=== PATIENT | female | born 1940 | race Caucasian/White ===

== ENCOUNTER → 2016-08-12 | Outpatient (CLI) | payer MEDICARE, BC ==
--- NOTE | 2016-08-12 15:36 | XR ---
EXAMINATION TYPE: XR cervical spine limited DATE OF EXAM: 08/12/2016 2:57 PM COMPARISON: NONE HISTORY: Neck pain TECHNIQUE: Four views are submitted. FINDINGS: The odontoid is intact. There are no compression deformities. The prevertebral soft tissue structur es are within normal limits. Calcification of soft tissues of the neck likely related carotid artery . Severe degenerative disc disease C3-T1 with 2 mm retrolisthesis of C3 on C4. Facet arthropathy. IMPRESSION: 1. Multilevel severe degenerative disc disease with facet arthropathy. Recommend follow-up MRI.
--- NOTE | 2016-08-12 15:42 | XR ---
EXAM TYPE: LUMBAR SPINE X RAY SERIES COMPARISON: NONE HISTORY: Chronic back pain TECHNIQUE: 4 views are submitted. FINDINGS: Alignment is anatomic. The pedicles are intact. The transverse processes are intact. There is grad e 1 anterolisthesis L4 and L5. Severe degenerative disc disease L5-S1 with facet arthropathy. Mild de generative disc disease at remaining levels. Diffuse osteopenia and vascular calcifications noted. IMPRESSION: 1. Multilevel degenerative disc disease and facet arthropathy with grade 1 anterolisthesis L4 on L5.
== END | disposition home or self-care (01) ==
LOC: RADXRMAIN 14:28
PROVIDERS: ATTEND Chiropractor
DX: M50.31 Other cervical disc degeneration, high cervical region (principal); M46.92 Unspecified inflammatory spondylopathy, cervical region; M51.36 Other intervertebral disc degeneration, lumbar region; M46.96 Unspecified inflammatory spondylopathy, lumbar region; M43.16 Spondylolisthesis, lumbar region
CPT/HCPCS: 72040; 72100

== ENCOUNTER 2016-11-19 09:58 | Day surgery (SDC) | payer MEDICARE, BC ==
[2016-11-14 12:59] VITALS: BMI 30.3
[~2016-11-19 09:58] MED LIST: LACTATED RINGERS 1,000 ML IV SCH; LIDOCAINE 1% 20 ML VIAL (10MG/ML) FOR IV START INTRADERMA PRN
[2016-11-19 10:12] VITALS: RESP 16; TEMP 98
[2016-11-19] MEDS ORDERED: LIDOCAINE 1% INJ 10MG/ML (20 ML MDV) ONE (10:29)
[2016-11-19] MEDS ORDERED: PROPOFOL 10 MG/ML 20 ML VIAL IV ONE (10:29)
--- NOTE | 2016-11-19 10:41 | P.GSHP ---
History of Present Illness H&P Date: 11/19/16 Chief Complaint: GERD, diarrhea, colitis This is a 72-year-old female who's had complaints of GERD and diarrhea. Patient has safer EGD and colonoscopy. - Constitutional Constitutional: Reports as per HPI Past Medical History Past Medical History: GERD/Reflux, Hyperlipidemia, Osteoarthritis (OA) Additional Past Medical History / Comment(s): H. Hernia History of Any Multi-Drug Resistant Organisms: None Reported Past Surgical History: Appendectomy, Hysterectomy, Orthopedic Surgery Additional Past Surgical History / Comment(s): cataracts; knee scope Past Anesthesia/Blood Transfusion Reactions: No Reported Reaction Smoking Status: Former smoker Past Alcohol Use History: Rare Additional Past Alcohol Use History / Comment(s): smoked 40 years 1 pkg a day Past Drug Use History: None Reported - Past Family History Father Family Medical History: Cancer Mother Family Medical History: Deep Vein Thrombosis (DVT) Brother(s) Family Medical History: Cancer Son(s) Family Medical History: Deep Vein Thrombosis (DVT) Medications and Allergies Home Medications Medication Instructions Recorded Confirmed Type Aspirin [Adult Low Dose Aspirin EC] 81 mg PO DAILY 11/14/16 11/14/16 History Calcium Carb-Vit D 500Mg-200Un 1 each PO DAILY 11/14/16 11/19/16 History [Oscal 500+D] Meclizine [Antivert] 25 mg PO TID PRN 11/14/16 11/19/16 History Omeprazole 20 mg PO DAILY 11/14/16 11/19/16 History Simvastatin [Zocor] 10 mg PO HS 11/14/16 11/19/16 History Terbinafine [LamISIL] 250 mg PO DAILY 11/14/16 11/19/16 History Torsemide 10 mg PO DAILY 11/14/16 11/19/16 History Vits A,C,E/Lutein/Minerals 1 each PO DAILY 11/14/16 11/19/16 History [Ocuvite with Lutein Tablet] clonazePAM [Clonazepam] 2 mg PO BID PRN 11/14/16 11/14/16 History Allergies Allergy/AdvReac Type Severity Reaction Status Date / Time Penicillins AdvReac Diarrhea Verified 11/19/16 10:01 Surgical - Exam Vital Signs Temp Pulse Resp Pulse Ox 98.0 F 88 16 98 11/19/16 10:11 11/19/16 10:11 11/19/16 10:11 11/19/16 10:11 - General well developed, no distress - Eyes PERRL - ENT normal pinna - Neck no masses - Respiratory normal expansion - Cardiovascular Rhythm: regular - Abdomen Abdomen: soft, non tender Assessment and Plan Plan: GERD, diarrhea. We'll perform EGD and colonoscopy.
[2016-11-19 11:25] VITALS: BP 151/77; PULSE 75
--- NOTE | 2016-11-19 11:37 | P.OP ---
Date of Procedure: 11/19/16 Preoperative Diagnosis: GERD, diarrhea Postoperative Diagnosis: Antral gastritis Mild esophagitis Small hiatal hernia Hepatic flexure polyp pathology pending Procedure(s) Performed: EGD Colonoscopy Implants: Anesthesia: MAC Surgeon: Raj Yoder Pathology: other (Antrum, esophagus, hepatic flexure polyp) Condition: stable Disposition: PACU Indications for Procedure: Operative Findings: Description of Procedure: The patient's placed on the endoscopy table lateral position she received IV sedation. The gastroscope some placed oropharynx passed in the esophagus and into the stomach. The scope was then placed through the pylorus. The first and second portion of the duodenum appeared normal. Scope was then brought back the antrum and this appeared mildly inflamed. A biopsies performed. The scope was unretroflexed and remainder of the stomach appeared normal. There was a small hiatal hernia. The GE junction was at 40 cm. The distal esophagus appeared mildly inflamed. And a biopsies performed. The proximal esophagus appeared normal. The scope was withdrawn for patient. Next digital rectal exam was performed which revealed no abnormalities. Flexible colonoscope was then placed patient anus passed throughout the colon. At the level of the hepatic flexure there was a large wide-based polyp. The polyp wasn't completely removed. It was removed with a forcep and snare. It had a suspicious appearance. The area of the polyp was tattooed with the ink spot. The scope could not be passed beyond the hepatic flexure secondary to tortuous valve. Multiple times were made to pass the scope over this is impossible. Scope was then withdrawn. The remainder transverse colon descending colon appeared normal. There were diverticular changes and sigmoid colon scope was brought back the rectum this appeared normal. Scope was withdrawn for patient.
== END 2016-11-19 12:05 | disposition home or self-care (01) ==
LOC: ORWHC2ENDO 09:58
PROVIDERS: ATTEND Surgery
DX: D12.2 Benign neoplasm of ascending colon (principal); K21.0 Gastro-esophageal reflux disease with esophagitis; K29.50 Unspecified chronic gastritis without bleeding; K44.9 Diaphragmatic hernia without obstruction or gangrene; R19.7 Diarrhea, unspecified; E78.5 Hyperlipidemia, unspecified; M19.90 Unspecified osteoarthritis, unspecified site; Z88.0 Allergy status to penicillin; Z87.891 Personal history of nicotine dependence; Z79.82 Long term (current) use of aspirin; Z79.899 Other long term (current) drug therapy; Q43.8 Other specified congenital malformations of intestine
CPT/HCPCS: 88305; 88342; 45385; 43239; 45381; J2001; J2704; 44404; 45380

== ENCOUNTER 2016-12-30 07:54 | Day surgery (SDC) | payer MEDICARE, BC ==
[2016-12-24 14:07] VITALS: BMI 29.9
[2016-12-30 08:37] VITALS: TEMP 97.6
[2016-12-30] MEDS ORDERED: PROPOFOL 10 MG/ML 20 ML VIAL IV ONE (09:22)
[2016-12-30] MEDS ORDERED: LIDOCAINE 1% INJ 10MG/ML (20 ML MDV) ONE (09:22)
[2016-12-30] MEDS ORDERED: fentaNYL (PF) 50 MCG/ML 2 ML AMP ONE (09:22)
--- NOTE | 2016-12-30 09:34 | P.GSHP ---
History of Present Illness H&P Date: 12/30/16 Chief Complaint: Right colon polyp This is a 76-year-old female who presents today for colonoscopy. Patient history of a incompletely removed right colon polyp. She will stay for colonoscopy to remove the remainder of the polyp. Past Medical History Past Medical History: GERD/Reflux, Hyperlipidemia, Osteoarthritis (OA) Additional Past Medical History / Comment(s): H. Hernia History of Any Multi-Drug Resistant Organisms: None Reported Past Surgical History: Appendectomy, Hysterectomy, Orthopedic Surgery Additional Past Surgical History / Comment(s): BILAT cataracts;RT knee scope, EGD, COLONOSCPY WITH PARTIAL POLYPECTOMY Past Anesthesia/Blood Transfusion Reactions: No Reported Reaction Smoking Status: Former smoker - Past Family History Father Family Medical History: Cancer Mother Family Medical History: Deep Vein Thrombosis (DVT) Brother(s) Family Medical History: Cancer Additional Family Medical History / Comment(s): 3 BROTHERS HAD CANCER Son(s) Family Medical History: Deep Vein Thrombosis (DVT) Medications and Allergies Home Medications Medication Instructions Recorded Confirmed Type Aspirin [Adult Low Dose Aspirin EC] 81 mg PO DAILY 11/14/16 12/30/16 History Calcium Carb-Vit D 500Mg-200Un 1 each PO DAILY 11/14/16 12/30/16 History [Oscal 500+D] Meclizine [Antivert] 25 mg PO TID PRN 11/14/16 12/30/16 History Omeprazole 20 mg PO DAILY 11/14/16 12/30/16 History Simvastatin [Zocor] 10 mg PO HS 11/14/16 12/30/16 History Terbinafine [LamISIL] 250 mg PO DAILY 11/14/16 12/30/16 History Torsemide 10 mg PO DAILY 11/14/16 12/30/16 History Vits A,C,E/Lutein/Minerals 1 each PO DAILY 11/14/16 12/30/16 History [Ocuvite with Lutein Tablet] clonazePAM [Clonazepam] 2 mg PO BID PRN 11/14/16 12/30/16 History Allergies Allergy/AdvReac Type Severity Reaction Status Date / Time Penicillins AdvReac Diarrhea Verified 12/30/16 08:29 Surgical - Exam Vital Signs Temp Pulse BP Pulse Ox 97.6 F 78 151/75 97 12/30/16 08:36 12/30/16 08:36 12/30/16 08:36 12/30/16 08:36 - General well developed, no distress - Eyes PERRL - ENT normal pinna - Neck no masses - Respiratory normal expansion - Cardiovascular Rhythm: regular - Abdomen Abdomen: soft, non tender Assessment and Plan Plan: Colon polyp. We'll perform colonoscopy.
--- NOTE | 2016-12-30 10:03 | P.OP ---
Date of Procedure: 12/30/16 Preoperative Diagnosis: Colon polyp Postoperative Diagnosis: Large colon polyps of right colon Procedure(s) Performed: Colonoscopy Implants: Anesthesia: MAC Surgeon: Raj Yoder Pathology: other (Right colon polyp, hepatic flexure polyp:) Condition: stable Indications for Procedure: Operative Findings: Description of Procedure: The patient's placed on the endoscopy table area and digital rectal exam was performed which revealed no abnormalities. The flexible colonoscope was then placed patient anus passed rotator colon. The ileocecal valve lesions. In the right colon there was a large polyp seen this was impossible to remove with the snare. Several pieces of the polyp removed with a snare and then and then the area was biopsied. The area was tattooed with ink spot. Next at the hepatic flexure there was another large polyp which was incompletely removed with the snare. This area was tattooed as well with the ink spot. The remainder of the transverse colon descending colon appeared normal. The; a few scattered diverticula. Scope was then brought back the rectum and this appeared normal. Scope was withdrawn from patient.
[2016-12-30 10:37] VITALS: BP 172/78; PULSE 67; RESP 20
== END 2016-12-30 10:40 | disposition home or self-care (01) ==
LOC: ORWHC2ENDO 07:54
PROVIDERS: ATTEND Surgery
DX: D12.3 Benign neoplasm of transverse colon (principal); D12.2 Benign neoplasm of ascending colon; K21.9 Gastro-esophageal reflux disease without esophagitis; E78.5 Hyperlipidemia, unspecified; M19.90 Unspecified osteoarthritis, unspecified site; Z87.891 Personal history of nicotine dependence; J44.9 Chronic obstructive pulmonary disease, unspecified; Z79.82 Long term (current) use of aspirin; Z79.899 Other long term (current) drug therapy; Z88.0 Allergy status to penicillin
CPT/HCPCS: 88305; 45380; 45385; 45381; J2001; J3010; J2704; 44404

== ENCOUNTER 2017-01-08 07:41 | Day surgery (SDC) | payer MEDICARE, BC ==
[2017-01-07 12:18] VITALS: BMI 29.9
[~2017-01-08 07:41] MED LIST changes: +DEXAMETHASONE SOD PHOSPHATE 10 MG/ML 1 ML VIAL IV ONE; +HEPARIN SODIUM,PORCINE 5,000 UNIT/ML 1 ML VIAL SQ ONE; +HYDROmorphone 1 MG/ML 1 ML SYRINGE IVP PRN; +MIDAZOLAM 2 MG/2 ML VIAL IV PRN; +ONDANSETRON 4 MG/2 ML VIAL IVP ONE; +SCOPOLAMINE 1.5MG/72HR PATCH TRANSDERM ONE; +ceFAZolin 2 GM in SODIUM CHLORIDE 0.9% 100 ML IVPB ONE
[2017-01-08] MEDS ORDERED: LACTATED RINGERS 1,000 ML IV ONE ×3 (08:19→10:09)
[2017-01-08] MEDS ORDERED: MIDAZOLAM 2 MG/2 ML VIAL ONE (09:05)
[2017-01-08] MEDS ORDERED: fentaNYL (PF) 50 MCG/ML 2 ML AMP ONE (09:05)
[2017-01-08] MEDS ORDERED: PROPOFOL 10 MG/ML 20 ML VIAL IV ONE (09:05)
[2017-01-08] MEDS ORDERED: ePHEDrine 50 MG/ML 1 ML AMP ONE (09:05)
[2017-01-08] MEDS ORDERED: ePHEDrine SULFATE/0.9% NACL/PF 50 MG/5 ML SYRINGE IV ONE (09:05)
[2017-01-08] MEDS ORDERED: NEOSTIGMINE 1 MG/ML 10 ML VIAL ONE (09:05)
[2017-01-08] MEDS ORDERED: LIDOCAINE 1% INJ 10MG/ML (20 ML MDV) ONE (09:05)
[2017-01-08] MEDS ORDERED: SUCCINYLCHOLINE CHLORIDE 100 MG/5 ML SYR IV ONE (09:05)
[2017-01-08] MEDS ORDERED: ROCURONIUM BROMIDE 10 MG/ML 10 ML VIAL IV ONE (09:05)
[2017-01-08] MEDS ORDERED: GLYCOPYRROLATE 0.2 MG/ML 2 ML VIAL ONE (09:05)
[2017-01-08] MEDS ORDERED: BUPIVACAINE (PF) 0.25% 30 ML VIAL SQ ONE (09:39)
[2017-01-08] MEDS ORDERED: ONDANSETRON 4 MG/2 ML VIAL IVP PRN (10:08)
[2017-01-08] MEDS ORDERED: HYDROmorphone 1 MG/ML 1 ML SYRINGE IVP PRN (10:08)
--- NOTE | 2017-01-08 10:13 | P.OP ---
Date of Procedure: 01/08/17 Preoperative Diagnosis: GERD Postoperative Diagnosis: GERD Procedure(s) Performed: Laparoscopic Babak fundoplication Implants: Anesthesia: TIBURCIO Surgeon: Raj Yoder Estimated Blood Loss (ml): 5 Pathology: none sent Condition: stable Disposition: PACU Indications for Procedure: Operative Findings: Description of Procedure: The patient was placed on the operating table in the supine position. The patient received general anesthesia. And was placed in dorsal lithotomy position. The patient was prepped and draped in the usual sterile fashion. The skin incision sites were anesthetized with 1% local Xylocaine. The skin was incised in the left periumbilical area and then using a blade less 5 mm trocar under direct visualization panel cavity was entered. After adequate insufflation the laparoscope was then placed into the peritoneal cavity. Next a 5 mm trochars placed in the right epigastric position. Another 5 millimeter trocar the right lateral position. Another 5 millimeter trocar in the left lateral position a 5 mm trocar is placed in the left epigastric position. And then the initial 5 mm trocar was exchanged for a 10 mm trocar. The left lateral lobe liver was retracted. The hernia was seen. The crural defect was then dissected using the Harmonic scissors device. A 360 crural dissection was performed the esophagus stomach was reduced back into the peritoneal Cavity. The crural defect was then closed using 2-0 Ethibond suture. Next the fundus of the stomach was mobilized using the Mckinnon scissors device. and then a 58-Nepalese bougie dilator was placed oropharynx passed into the esophagus and stomach the fundal plication wrap was then performed by grasping the fundus posteriorly and bringing it around the esophagus and stomach fundoplication was then performed using 2-0 Ethibond suture. Care was taken that the fundal location rested over top of the intra-abdominal esophagus. There was no injury seen to the stomach or esophagus. The dilator was then withdrawn. The abdomen was irrigated there is no bleeding seen. The trochars were then withdrawn and then skin incision sites were closed using 3-0 Monocryl suture Steri-Strips are applied. Patient thought procedure well and sent to recovery room in stable condition.
[2017-01-08] MEDS ORDERED: hydrALAZINE HCL 20 MG/ML 1 ML VIAL IVP ONE (10:33)
[2017-01-08] MEDS: METOCLOPRAMIDE 5 MG/ML 2 ML VIAL IVP SCH ×3 (12:00→23:36)
--- NOTE | 2017-01-08 15:33 | FL ---
EXAMINATION TYPE: FL esophagus cervic/pharynx DATE OF EXAM: 01/08/2017 LAP BANDING LIMITED ESOPHAGRAM: CLINICAL HISTORY: Post Jose Alfredo fundoplication TECHNIQUE: Limited esophagram is performed utilizing 25 mL Omnipaque 350 COMPARISON: None. FINDINGS: Contrast passes through the Jose Alfredo fundoplication with mild hesitancy. No persistent focal stenosis is evident. No free air is evident. No extravasation of contrast is evident. IMPRESSION: 1. Mild hesitancy passing through the level of the Jose Alfredo fundoplication.
[2017-01-08] MEDS: D5-0.45% NACL WITH KCL 20MEQ/L 1,000 ML IV SCH (15:55)
[2017-01-08] MEDS ORDERED: ZOLPIDEM 5 MG TAB PO PRN (20:19)
[2017-01-08] MEDS ORDERED: MECLIZINE 25 MG TAB PO PRN (20:23)
[2017-01-08] MEDS ORDERED: ATORVASTATIN 10 MG TAB PO SCH (21:00)
[2017-01-08] MEDS: CALCIUM CARB-VIT D 500MG-200UN 1 EACH TAB PO SCH (21:28)
[2017-01-08 23:42] VITALS: RESP 18
[2017-01-09] MEDS: D5-0.45% NACL WITH KCL 20MEQ/L 1,000 ML IV SCH ×3 (01:00→11:58)
[2017-01-09] MEDS: METOCLOPRAMIDE 5 MG/ML 2 ML VIAL IVP SCH ×2 (05:59→11:59)
[2017-01-09] MEDS ORDERED: PANTOPRAZOLE 40 MG TABLET PO SCH (07:30)
[2017-01-09] MEDS: CALCIUM CARB-VIT D 500MG-200UN 1 EACH TAB PO SCH ×2 (08:29→11:59)
--- NOTE | 2017-01-09 08:35 | P.CONS ---
History of Present Illness - Reason for Consult Consult date: 01/09/17 Requesting physician: Raj Yoder - Chief Complaint postop care/ Reflux esophagitis. - History of Present Illness This is a medical consult on a 76-year-old white female essentially admitted for reflux esophagitis. She is has an underlying history of hyperlipidemia. Otherwise, no new complaints. She is seen postoperatively doing quite well and tolerating diet. Radiologic scans are pending. Review of Systems ROS unobtainable: due to endotracheal tube All systems: negative Past Medical History Past Medical History: GERD/Reflux, Hyperlipidemia, Osteoarthritis (OA) Additional Past Medical History / Comment(s): HIATAL HERNIA. Colon Polyps History of Any Multi-Drug Resistant Organisms: None Reported Past Surgical History: Appendectomy, Hysterectomy, Orthopedic Surgery Additional Past Surgical History / Comment(s): BILAT cataracts;RT knee scope, EGD, COLONOSCPY WITH PARTIAL POLYPECTOMY. 01/08/2017 Lap Babak Past Anesthesia/Blood Transfusion Reactions: No Reported Reaction, Motion Sickness Past Psychological History: Anxiety Smoking Status: Former smoker Past Alcohol Use History: Rare Additional Past Alcohol Use History / Comment(s): QUIT SMOKING 06/01/08 smoked 40 years 1 pkg a day Past Drug Use History: None Reported - Past Family History Father Family Medical History: Cancer Mother Family Medical History: Deep Vein Thrombosis (DVT) Brother(s) Family Medical History: Cancer Additional Family Medical History / Comment(s): 3 BROTHERS HAD CANCER Son(s) Family Medical History: Deep Vein Thrombosis (DVT) Medications and Allergies Home Medications Medication Instructions Recorded Confirmed Type Aspirin [Adult Low Dose Aspirin EC] 81 mg PO DAILY 11/14/16 01/08/17 History Meclizine [Antivert] 25 mg PO TID PRN 11/14/16 01/08/17 History Omeprazole 20 mg PO DAILY 11/14/16 01/08/17 History Simvastatin [Zocor] 10 mg PO HS 11/14/16 01/08/17 History Torsemide 10 mg PO DAILY 11/14/16 01/08/17 History Vits A,C,E/Lutein/Minerals 1 each PO DAILY 11/14/16 01/08/17 History [Ocuvite with Lutein Tablet] Calcium 600 Plus D 2 tab PO DAILY 01/07/17 01/08/17 History clonazePAM [KlonoPIN] 1 mg PO BID PRN 01/07/17 01/08/17 History Allergies Allergy/AdvReac Type Severity Reaction Status Date / Time Penicillins AdvReac Severe Diarrhea Verified 01/08/17 12:15 terbinafine [From Lamisil] AdvReac Severe Diarrhea Verified 01/08/17 12:15 Physical Exam Vitals: Vital Signs Temp Pulse Pulse Resp BP Pulse Ox 01/08/17 23:00 98.2 F 88 18 135/58 99 01/08/17 22:00 80 01/08/17 20:40 97.3 F L 87 16 137/63 95 01/08/17 16:20 97.1 F L 89 20 147/74 96 01/08/17 14:36 101 H 16 151/71 95 01/08/17 13:38 102 H 163/84 98 01/08/17 13:08 93 159/78 95 01/08/17 12:38 81 16 146/62 95 01/08/17 12:23 90 16 147/63 94 L 01/08/17 12:07 92 16 153/74 97 01/08/17 11:52 97.1 F L 88 16 145/70 96 01/08/17 11:30 83 18 156/65 95 01/08/17 11:17 82 16 150/67 95 01/08/17 11:00 84 16 163/70 95 01/08/17 10:45 85 16 169/74 100 01/08/17 10:30 70 16 192/75 100 01/08/17 10:14 97.6 F 76 16 194/86 99 Intake and Output 01/08/17 01/09/17 01/09/17 22:59 06:59 14:59 Intake Total 500 Output Total 400 Balance -400 500 Intake: Oral 500 Output: Urine 400 Other: Voiding Method Toilet Bedside Commode # Voids 1 - Constitutional General appearance: no acute distress - EENT Eyes: EOMI - Neck Neck: no lymphadenopathy - Respiratory Respiratory: bilateral: diminished - Cardiovascular Rhythm: irregularly irregular Heart sounds: normal: S1, S2 - Gastrointestinal General gastrointestinal: soft, no tenderness - Psychiatric Psychiatric: no A&O x's 3 Results CBC & Chem 7: 01/08/17 08:15 Assessment and Plan (1) Reflux esophagitis Status: Acute (2) Hyperlipidemia Status: Acute Plan: Continue to follow with grease buffer. Check CBC, CMP with postop chest x-ray. Prognosis is guarded secondary term maria r postop course. We'll continue to follow. Dr. Washington's group will be covering for the weekend. Time with Patient: Less than 30
[2017-01-09] MEDS ORDERED: TORSEMIDE 20 MG TAB PO SCH (09:00)
[2017-01-09] MEDS ORDERED: ENOXAPARIN 40 MG/0.4 ML SYRINGE SQ SCH (09:00)
[2017-01-09 12:04] VITALS: BP 145/77; PULSE 71; TEMP 96.9
--- NOTE | 2017-01-09 14:32 | P.DS ---
Providers Date of admission: 01/08/2017 Expected date of discharge: 01/09/17 Attending physician: Raj Yoder Consults: 01/08/17 10:13 Consult Physician Routine Consulting Provider: Kareem Cunningham Consult Reason/Comments: Medical management Do you want consulting provider notified?: Yes Primary care physician: Kareem Cunningham [facility] Course: Assessment a 6-year-old female who underwent laparoscopic Babak fundoplication yesterday. Patient is doing quite well. She has no complaints of pain. Previously on the chart for details. Procedures: Laparoscopic Babak fundoplication Patient Condition at Discharge: Good Plan - Discharge Summary New Discharge Prescriptions: New Docusate [Colace] 100 mg PO BID #20 capsule HYDROcodone/APAP 7.5-325MG [[place] 7.5] 1 each PO Q4H PRN #60 tab PRN Reason: Pain No Action Vits A,C,E/Lutein/Minerals [Ocuvite with Lutein Tablet] 1 each PO DAILY Torsemide 10 mg PO DAILY Omeprazole 20 mg PO DAILY Simvastatin [Zocor] 10 mg PO HS Meclizine [Antivert] 25 mg PO TID PRN PRN Reason: Vertigo Aspirin [Adult Low Dose Aspirin EC] 81 mg PO DAILY clonazePAM [KlonoPIN] 1 mg PO BID PRN PRN Reason: Anxiety Calcium 600 Plus D 2 tab PO DAILY Discharge Medication List Aspirin [Adult Low Dose Aspirin EC] 81 mg PO DAILY 11/14/16 [History] Meclizine [Antivert] 25 mg PO TID PRN 11/14/16 [History] Omeprazole 20 mg PO DAILY 11/14/16 [History] Simvastatin [Zocor] 10 mg PO HS 11/14/16 [History] Torsemide 10 mg PO DAILY 11/14/16 [History] Vits A,C,E/Lutein/Minerals [Ocuvite with Lutein Tablet] 1 each PO DAILY [History] Calcium 600 Plus D 2 tab PO DAILY 01/07/17 [History] clonazePAM [KlonoPIN] 1 mg PO BID PRN 01/07/17 [History] Docusate [Colace] 100 mg PO BID #20 capsule 01/09/17 [Rx] HYDROcodone/APAP 7.5-325MG [[place] 7.5] 1 each PO Q4H PRN #60 tab 01/09/17 [Rx] Follow up Appointment(s)/Referral(s): Raj Yoder MD [STAFF PHYSICIAN] - 01/22/17 2:00 pm Patient Instructions/Handouts: *[facility] - ([facility]) Lap Babak Fundiplication Post-Op Instructions, *[facility] - Scopalamine Patch Instructions, Adult Laparoscopic Babak Fundoplication (DC)
== END 2017-01-09 14:45 | disposition home or self-care (01) ==
LOC: OR 07:41 → 6PED 10:14 → OR 01-09 14:45
PROVIDERS: ATTEND Surgery
DX: K21.0 Gastro-esophageal reflux disease with esophagitis (principal); K44.9 Diaphragmatic hernia without obstruction or gangrene; K63.5 Polyp of colon; E78.5 Hyperlipidemia, unspecified; M19.90 Unspecified osteoarthritis, unspecified site; F41.9 Anxiety disorder, unspecified; Z79.82 Long term (current) use of aspirin; Z79.899 Other long term (current) drug therapy; Z87.891 Personal history of nicotine dependence
CPT/HCPCS: 93005; 84132; 74210; 43280; J2250; J0360; J1644; J1100; J2710; J2765 ×2; Q9967; J0690; J2405; J2001; J1650; J3010; J0330; J2704

== ENCOUNTER → 2017-01-20 | Outpatient (CLI) | payer MEDICARE, BC ==
[2017-01-20 15:42] LABS: Basophils # (A) 0.1 k/uL (0-0.2); Basophils % (A) 1 %; CH 30.6; CHCM 33.7; Eosinophils # (A) 0.1 k/uL (0-0.7); Eosinophils % (A) 2 %; HCT 43.1 % (34.0-46.0); HDW 2.58; HGB 13.9 gm/dL (11.4-16.0); Luc # (Auto) 0.11; Luc % (Auto) 2; Lymphocytes # (A) 2.2 k/uL (1.0-4.8); Lymphocytes % (A) 34 %; MCH 29.5 pg (25.0-35.0); MCHC 32.3 g/dL (31.0-37.0); MCV 91.4 fL (80.0-100.0); Mean Platelet Volume 7.2; Monocytes # (A) 0.3 k/uL (0-1.0); Monocytes % (A) 4 %; Neutrophils # (A) 3.8 k/uL (1.3-7.7); Neutrophils % (A) 58 %; RBC 4.72 m/uL (3.80-5.40); RDW 14.6 % (11.5-15.5); WBC 6.6 k/uL (3.8-10.6)
[2017-01-20 16:03] LABS: Potassium 4.2 mmol/L (3.5-5.1)
== END | disposition home or self-care (01) ==
LOC: LABPAT 15:03
PROVIDERS: ATTEND Anesthesiology
DX: Z01.812 Encounter for preprocedural laboratory examination (principal); Z79.01 Long term (current) use of anticoagulants
CPT/HCPCS: 36415; 80051; 85025

== ENCOUNTER 2017-01-22 07:45 | Inpatient (IN) | payer MEDICARE, BC ==
[2017-01-13 11:26] VITALS: BMI 29.4
[~2017-01-22 07:45] MED LIST changes: -HYDROmorphone 1 MG/ML 1 ML SYRINGE IVP PRN; -LIDOCAINE 1% 20 ML VIAL (10MG/ML) FOR IV START INTRADERMA PRN; -SCOPOLAMINE 1.5MG/72HR PATCH TRANSDERM ONE; +metroNIDAZOLE-NS PMX 500 MG in SALINE 1 100ML.BAG IVPB ONE
[2017-01-22] MEDS ORDERED: LACTATED RINGERS 1,000 ML IV ONE (10:09)
[2017-01-22] MEDS ORDERED: SCOPOLAMINE 1.5MG/72HR PATCH TRANSDERM ONE (10:16)
[2017-01-22] MEDS ORDERED: LIDOCAINE 1% 20 ML VIAL (10MG/ML) FOR IV START INTRADERMA ONE (10:16)
--- NOTE | 2017-01-22 10:19 | P.GSHP ---
History of Present Illness H&P Date: 01/22/17 Chief Complaint: Colon polyps This is a 36-year-old female referred from Dr. Cunningham. Patient presents today for laparoscopic right colectomy. She's had several large right colon polyps which are impossible to remove via the colonoscope due to the large size. She presents today for laparoscopic right colectomy. She understands the risks and benefits of procedure. Past Medical History Past Medical History: Eye Disorder, GERD/Reflux, Hyperlipidemia, Osteoarthritis (OA) Additional Past Medical History / Comment(s): macular degeneration, heartburn gone since sameer fundoplasty History of Any Multi-Drug Resistant Organisms: None Reported Past Surgical History: Appendectomy, Hysterectomy, Orthopedic Surgery Additional Past Surgical History / Comment(s): cataracts; knee arthroscopy, sameer fundoplasty 01-08-17 Past Anesthesia/Blood Transfusion Reactions: No Reported Reaction Smoking Status: Former smoker - Past Family History Father Family Medical History: Cancer Mother Family Medical History: Deep Vein Thrombosis (DVT) Brother(s) Family Medical History: Cancer Additional Family Medical History / Comment(s): 3 BROTHERS HAD CANCER Son(s) Family Medical History: Deep Vein Thrombosis (DVT) Medications and Allergies Home Medications Medication Instructions Recorded Confirmed Type Aspirin [Adult Low Dose Aspirin EC] 81 mg PO DAILY 11/14/16 01/21/17 History Meclizine [Antivert] 25 mg PO TID PRN 11/14/16 01/13/17 History Simvastatin [Zocor] 10 mg PO HS 11/14/16 01/13/17 History Torsemide 10 mg PO DAILY 11/14/16 01/13/17 History Vits A,C,E/Lutein/Minerals 1 each PO DAILY 11/14/16 01/21/17 History [Ocuvite with Lutein Tablet] clonazePAM [KlonoPIN] 1 mg PO BID PRN 01/07/17 01/13/17 History Calcium Carbonate/Vitamin D3 1 each PO DAILY 01/13/17 01/22/17 History [Calcium 600-Vit D3 400 Tablet] Allergies Allergy/AdvReac Type Severity Reaction Status Date / Time Penicillins AdvReac Severe Diarrhea Verified 01/13/17 08:17 terbinafine [From Lamisil] AdvReac Severe Diarrhea Verified 01/13/17 08:17 Surgical - Exam Vital Signs Temp Pulse Resp BP Pulse Ox 97.7 F 86 18 143/83 97 01/22/17 09:53 01/22/17 09:53 01/22/17 09:53 01/22/17 09:53 01/22/17 09:53 Assessment and Plan Plan: Large right colon polyps. We'll perform laparoscopic right colectomy.
[2017-01-22] MEDS ORDERED: BUPIVACAINE (PF) 0.25% 30 ML VIAL SQ ONE (11:18)
[2017-01-22] MEDS ORDERED: LIDOCAINE 2%-EPI 1:100,000 20 ML VIAL SQ ONE (11:18)
[2017-01-22] MEDS ORDERED: METOCLOPRAMIDE 5 MG/ML 2 ML VIAL IVP PRN (11:57)
[2017-01-22] MEDS ORDERED: HYDROmorphone 1 MG/ML 1 ML SYRINGE IVP PRN (11:57)
[2017-01-22] MEDS ORDERED: ONDANSETRON 4 MG/2 ML VIAL IVP PRN (11:57)
[2017-01-22] MEDS ORDERED: BENZOCAINE/MENTHOL LOZENG 1 EACH LOZENGE MUCOUS MEM PRN (11:57)
--- NOTE | 2017-01-22 12:03 | P.OP ---
Date of Procedure: 01/22/17 Preoperative Diagnosis: Right colon polyps Postoperative Diagnosis: Right colon polyps Procedure(s) Performed: Laparoscopic right colectomy Implants: Anesthesia: TIBURCIO Surgeon: Raj Yoder Estimated Blood Loss (ml): 10 Pathology: other (Right colon) Condition: stable Disposition: PACU Indications for Procedure: Operative Findings: Description of Procedure: Patient's placed on the operating table in the supine position. She received IV sedation and general anesthesia. Her abdomen was prepped and draped usual fashion. The skin incision sites were anesthetized 1% local Xylocaine. Using 11 blade the skin was incised at the umbilicus and then using a pair of Katie's the fascia was grasped and then the Veress needles placed into the pleural cavity. Position of the Veress needle was confirmed with a positive drop test. The abdomen was insufflated and then after adequate insufflation a 5 mm trochars placed in into the peritoneal cavity. Next a 5 mm trochars placed the suprapubic position. And then a another fibrillar trocar is placed in the epigastric position. The right colon was visualized. There were 2 tattoo velasquez seen one in the cecum and one near the hepatic flexure. Using Harmonic scissors the right colon and terminal ileum were mobilized. After adequate mobilization the trochars withdrawn. The umbilical incision was lengthened and then the terminal ileum was brought up into the incision site. The terminal ileum was transected with a GI stapler. And then the transverse colon was brought up into the staple site and transected with a GI stapler. Using the laser device the mesentery the bowel was divided. And then a [id number] functional end-to-end staple anastomosis created using the YOLANDA and TA stapler. A 3-0 GI silk was used as a crotch stitch. There is no bleeding seen. The abdomen was irrigated there is no bleeding seen. The fascia was closed with looped #1 PDS suture. The skin was closed with interrupted 3-0 Monocryl suture. Dermabond was applied. Patient top she will was sent to recovery in stable condition.
[2017-01-22] MEDS ORDERED: ENALAPRILAT 1.25 MG/ML 1 ML VIAL IVP ONE (12:15)
[2017-01-22] MEDS: HYDROmorphone 1 MG/ML 1 ML SYRINGE IVP PRN ×2 (12:25→12:35)
[2017-01-22] MEDS: KETOROLAC 30 MG/ML 1 ML VIAL IVP PRN (12:40)
[2017-01-22] MEDS: D5-0.45% NACL WITH KCL 20MEQ/L 1,000 ML IV SCH ×2 (13:14→22:05)
[2017-01-22 13:41] LABS: Basophils % (A) 0 %; CH 30.7; CHCM 33.1; Eosinophils % (A) 0 %; HCT 44.2 % (34.0-46.0); HDW 2.56; Luc # (Auto) 0.04; Luc % (Auto) 0; Lymphocytes # (A) 0.6 k/uL (1.0-4.8); Lymphocytes % (A) 7 %; MCH 29.5 pg (25.0-35.0); MCHC 31.6 g/dL (31.0-37.0); MCV 93.3 fL (80.0-100.0); Mean Platelet Volume 7.6; Monocytes # (A) 0.1 k/uL (0-1.0); Monocytes % (A) 1 %; Neutrophils # (A) 7.3 k/uL (1.3-7.7); Neutrophils % (A) 91 %; RBC 4.74 m/uL (3.80-5.40); RDW 14.4 % (11.5-15.5); WBC 8.1 k/uL (3.8-10.6); WBC (Perox) 8.18
[2017-01-22 13:49] LABS: Anion Gap 14 mmol/L; Blood Urea Nitrogen 15 mg/dL (7-17); Calcium 9.5 mg/dL (8.4-10.2); Carbon Dioxide 25 mmol/L (22-30); Chloride 101 mmol/L (98-107); Glucose 133 mg/dL (74-99); Non-African American GFR(MDRD) 51 (>60 ml/min/1.73 sqM); Potassium 3.6 mmol/L (3.5-5.1); Sodium 140 mmol/L (137-145)
[2017-01-22] MEDS ORDERED: ALVIMOPAN 12 MG CAPSULE PO SCH (21:00)
[2017-01-23] MEDS: FAMOTIDINE 20 MG/2 ML VIAL IV SCH ×2 (04:20→07:43)
[2017-01-23] MEDS: D5-0.45% NACL WITH KCL 20MEQ/L 1,000 ML IV SCH ×2 (05:57→19:57)
[2017-01-23] MEDS: ALVIMOPAN 12 MG CAPSULE PO SCH ×2 (07:43→20:00)
[2017-01-23] MEDS ORDERED: clonazePAM 1 MG TAB PO PRN (08:49)
[2017-01-23] MEDS ORDERED: MECLIZINE 25 MG TAB PO PRN (08:49)
--- NOTE | 2017-01-23 08:52 | P.CONS ---
History of Present Illness - Reason for Consult Consult date: 01/23/17 - Chief Complaint Abdominal pain. - History of Present Illness This is a 76-year-old white female who is fairly well-known to my practice who has an underlying history of colon polyps with abdominal pain and hemorrhoids. She is scheduled for partial colectomy and is postop day #1 doing quite well. We will reconcile home medications. She states minimal pain and she seems to tolerate clear liquid diet at this time. No fever or chills are stated. She is a nonsmoker. Review of Systems Constitutional: Denies chills, Denies fever Eyes: denies blurred vision, denies pain Ears, nose, mouth and throat: Denies headache, Denies sore throat Respiratory: Denies cough Gastrointestinal: Reports as per HPI Past Medical History Past Medical History: Eye Disorder, GERD/Reflux, Hyperlipidemia, Osteoarthritis (OA) Additional Past Medical History / Comment(s): macular degeneration, heartburn gone since sameer fundoplasty History of Any Multi-Drug Resistant Organisms: None Reported Past Surgical History: Appendectomy, Hysterectomy, Orthopedic Surgery Additional Past Surgical History / Comment(s): cataracts; knee arthroscopy, sameer fundoplasty 01-08-17 Past Anesthesia/Blood Transfusion Reactions: No Reported Reaction Past Psychological History: Anxiety Smoking Status: Former smoker Past Alcohol Use History: Rare Additional Past Alcohol Use History / Comment(s): quit smoking 2007, smoked 40 years 1 pkg a day Past Drug Use History: None Reported - Past Family History Father Family Medical History: Cancer Mother Family Medical History: Deep Vein Thrombosis (DVT) Brother(s) Family Medical History: Cancer Additional Family Medical History / Comment(s): 3 BROTHERS HAD CANCER Son(s) Family Medical History: Deep Vein Thrombosis (DVT) Medications and Allergies Home Medications Medication Instructions Recorded Confirmed Type Aspirin [Adult Low Dose Aspirin EC] 81 mg PO DAILY 11/14/16 01/22/17 History Meclizine [Antivert] 25 mg PO TID PRN 11/14/16 01/22/17 History Simvastatin [Zocor] 10 mg PO HS 11/14/16 01/22/17 History Torsemide 10 mg PO DAILY 11/14/16 01/22/17 History Vits A,C,E/Lutein/Minerals 1 tab PO DAILY 11/14/16 01/22/17 History [Ocuvite with Lutein Tablet] clonazePAM [KlonoPIN] 1 mg PO BID PRN 01/07/17 01/22/17 History Calcium Carbonate/Vitamin D3 1 tab PO DAILY 01/13/17 01/22/17 History [Calcium 600-Vit D3 400 Tablet] Allergies Allergy/AdvReac Type Severity Reaction Status Date / Time Penicillins AdvReac Severe Diarrhea Verified 01/22/17 12:15 terbinafine [From Lamisil] AdvReac Severe Diarrhea Verified 01/22/17 12:15 Physical Exam Vitals: Vital Signs Temp Pulse Pulse Resp BP BP Pulse Ox 01/23/17 08:42 95 01/23/17 07:38 97.5 F L 74 18 140/63 95 01/23/17 04:08 97.9 F 71 16 120/59 96 01/22/17 19:00 97.3 F L 73 16 123/57 96 01/22/17 15:15 67 98/48 01/22/17 15:00 71 107/51 01/22/17 14:45 80 99/45 01/22/17 14:30 84 112/60 01/22/17 14:15 80 105/57 01/22/17 14:00 91 112/51 01/22/17 13:45 89 105/54 01/22/17 13:30 85 115/50 01/22/17 13:15 97 F L 84 16 126/47 97 01/22/17 12:50 75 16 143/65 100 01/22/17 12:35 71 16 146/66 99 01/22/17 12:20 69 16 158/89 3 L 01/22/17 12:06 97.6 F 73 20 192/81 94 L 01/22/17 09:53 97.7 F 86 18 143/83 97 Intake and Output 01/22/17 01/23/17 01/23/17 22:59 06:59 14:59 Intake Total 1540 1250 Output Total 1100 300 Balance 440 950 Intake: Intake, IV Titration 1000 1250 Amount D5-0.45% NaCl with KCl 1000 1250 20Meq/l 1,000 ml @ 125 mls/hr IV .Q8H APRYL Rx#: [id number] Oral 540 Output: Urine 1100 300 Other: Voiding Method Toilet # Voids 2 1 - Constitutional General appearance: no acute distress - EENT Eyes: EOMI - Respiratory Respiratory: bilateral: CTA - Cardiovascular Rhythm: regular Heart sounds: normal: S1, S2 - Gastrointestinal General gastrointestinal: absent bowel sounds, soft - Psychiatric Psychiatric: A&O x's 3, appropriate affect, intact judgment & insight Results CBC & Chem 7: 01/22/17 13:11 01/22/17 13:11 Labs: Abnormal Lab Results - Last 24 Hours (Table) 01/22/17 01/22/17 Range/Units 13:11 13:11 Lymphocytes # 0.6 L (1.0-4.8) k/uL Creatinine 1.05 H (0.52-1.04) mg/dL Glucose 133 H (74-99) mg/dL Assessment and Plan (1) Colon polyps Status: Acute (2) Hyperlipidemia Status: Acute (3) Reflux esophagitis Status: Acute Plan: Reconcile home medications. Check CBC and CMP in a.m. Dr. Washington's group will be covering for the weekend. Time with Patient: Less than 30
[2017-01-23] MEDS: TORSEMIDE 20 MG TAB PO SCH (09:53)
[2017-01-23] MEDS: VIT A,C & E-LUTEIN-MINERALS 1 EACH TAB PO SCH (09:53)
--- NOTE | 2017-01-23 14:02 | P.PN ---
Subjective 76-year-old female being seen on rounds this afternoon up ambulating in the room. Patient states that she did walk in the hallway this morning. Patient states had a bowel movement is passing gas rectally. Patient states no nausea no vomiting and the pain medication is effective for pain control. Patient additionally states did have a bowel movement. Patient reports no nausea vomiting. Patient is postop on January 22 laparoscopic right cholectomy for right colon polyp Objective - Vital Signs Vital signs: Vital Signs Temp 97.5 F L 01/23/17 07:38 Pulse 74 01/23/17 08:00 Resp 18 01/23/17 08:00 BP 140/63 01/23/17 07:38 Pulse Ox 95 01/23/17 08:42 Intake & Output 01/22/17 01/23/17 01/23/17 18:59 06:59 18:59 Intake Total 950 2790 Output Total 10 1400 Balance 940 1390 Intake: IV 950 Intake, IV Titration 2250 Amount D5-0.45% NaCl with KCl 2250 20Meq/l 1,000 ml @ 125 mls/hr IV .Q8H APRYL Rx#: [id number] Oral 540 Output: Urine 1400 Estimated Blood Loss 10 Other: Voiding Method Toilet Toilet # Voids 1 2 - Exam Physical exam Pleasant 76-year-old female standing up in the room talkative pleasant states pain medication effective for pain control tolerating a diet Lungs essentially clear adequate air movement currently on room air Heart S1-S2 audible and regular denying chest pain Abnormal surgical sites no redness dry soft and not distended slight surgical tenderness bowel tones present no nausea no vomitin Extremities no edema noted. - Labs CBC & Chem 7: 01/22/17 13:11 01/22/17 13:11 Labs: Abnormal Lab Results - Last 24 Hours (Table) 01/22/17 01/22/17 Range/Units 13:11 13:11 Lymphocytes # 0.6 L (1.0-4.8) k/uL Creatinine 1.05 H (0.52-1.04) mg/dL Glucose 133 H (74-99) mg/dL Assessment and Plan Plan: Impression History of right colon polyp status post laparoscopic right colectomy on January 22 History of esophageal reflux Reflex esophagitis acute Hyperlipidemia Plan Continue postop surgical care Pain control Advance diet to soft DVT and GI prophylaxis Resume home meds as appropriate The above impression and plan of care have been discussed and directed by signing physician. Denisse Forrest nurse practitioner acting as scribe for signing physician.
[2017-01-23] MEDS: ATORVASTATIN 10 MG TAB PO SCH (20:00)
[2017-01-24] MEDS: D5-0.45% NACL WITH KCL 20MEQ/L 1,000 ML IV SCH (03:04)
[2017-01-24] MEDS: KETOROLAC 30 MG/ML 1 ML VIAL IVP PRN (03:23)
[2017-01-24] MEDS: ALVIMOPAN 12 MG CAPSULE PO SCH ×2 (07:48→23:01)
[2017-01-24] MEDS: VIT A,C & E-LUTEIN-MINERALS 1 EACH TAB PO SCH (07:48)
[2017-01-24] MEDS: FAMOTIDINE 20 MG TAB PO SCH (07:49)
[2017-01-24] MEDS: TORSEMIDE 20 MG TAB PO SCH (07:49)
[2017-01-24 07:59] LABS: CH 30.7; HCT 39.7 % (34.0-46.0); HDW 2.59; HGB 12.6 gm/dL (11.4-16.0); MCH 29.8 pg (25.0-35.0); MCHC 31.8 g/dL (31.0-37.0); MCV 93.8 fL (80.0-100.0); Mean Platelet Volume 7.6; RBC 4.23 m/uL (3.80-5.40); RDW 14.8 % (11.5-15.5); WBC 9.1 k/uL (3.8-10.6)
[2017-01-24 08:27] LABS: ALT 26 U/L (9-52); AST 22 U/L (14-36); Alkaline Phosphatase 97 U/L (38-126); Anion Gap 11 mmol/L; Blood Urea Nitrogen 10 mg/dL (7-17); Calcium 9.5 mg/dL (8.4-10.2); Carbon Dioxide 26 mmol/L (22-30); Chloride 104 mmol/L (98-107); Glucose 84 mg/dL (74-99); Non-African American GFR(MDRD) 59 (>60 ml/min/1.73 sqM); Potassium 4.1 mmol/L (3.5-5.1); Sodium 141 mmol/L (137-145); Total Bilirubin 0.3 mg/dL (0.2-1.3); Total Protein 6.2 g/dL (6.3-8.2)
--- NOTE | 2017-01-24 11:52 | P.PN ---
Progress Note - Text The patient is day 2 post the right colectomy by Dr. Yoder. She is tolerating a soft diet. Had some bowel movements yesterday. No nausea or vomiting. On examination she is afebrile. Vitals are stable. She is cheerful and in no distress. The abdomen is soft with usual postoperative tenderness. Incision looks fine. Impression. Slowly improving postoperative course status post right colectomy. Recommendation. IV to saline lock..PO Pain meds. Hopefully discharged the next day or 2.
[2017-01-24] MEDS: ACETAMINOPHEN TAB 325 MG TAB PO PRN (16:53)
[2017-01-24] MEDS: ATORVASTATIN 10 MG TAB PO SCH (23:01)
[2017-01-25] MEDS: ACETAMINOPHEN TAB 325 MG TAB PO PRN ×3 (01:45→20:40)
[2017-01-25] MEDS: TORSEMIDE 20 MG TAB PO SCH (08:53)
[2017-01-25] MEDS: ALVIMOPAN 12 MG CAPSULE PO SCH ×2 (08:53→20:40)
[2017-01-25] MEDS: VIT A,C & E-LUTEIN-MINERALS 1 EACH TAB PO SCH (08:53)
[2017-01-25] MEDS: FAMOTIDINE 20 MG TAB PO SCH (08:54)
--- NOTE | 2017-01-25 12:49 | P.PN ---
Progress Note - Text The patient continues to improve. She is tolerating a soft diet. Is having multiple loose bowel movement which is not too unexpected and she is reassured. On examination she is afebrile. Vitals are stable. She is in no distress. Abdomen is soft with mild postoperative tenderness. No evidence of any complication. Allograft impression slowly improving postoperative course status post right colectomy. Recommendation. IV to saline lock. Monitor her diarrhea. Probably discharge in the next day or 2.
[2017-01-25 14:24] VITALS: RESP 16
[2017-01-25] MEDS: ATORVASTATIN 10 MG TAB PO SCH (20:40)
--- NOTE | 2017-01-26 00:48 | P.PN ---
Subjective Principal diagnosis: Patient is postop on January 22 laparoscopic right cholectomy for right colon polyp This is a 76-year-old white female who is fairly well-known to my practice who has an underlying history of colon polyps with abdominal pain and hemorrhoids. She is scheduled for partial colectomy and is postop day #1 doing quite well. We will reconcile home medications. She states minimal pain and she seems to tolerate clear liquid diet at this time. No fever or chills are stated. She is a nonsmoker. 01/25/2017 Patient is coming or diarrhea which is not unrestricted to to colon surgery. No fever no chills. No nausea vomiting abdominal pain. Otherwise no acute overnight issues. Objective - Vital Signs Vital signs: Vital Signs Temp 98.4 F 01/25/17 14:23 Pulse 87 01/25/17 16:00 Resp 16 01/25/17 16:00 BP 164/72 01/25/17 14:23 Pulse Ox 97 01/25/17 14:23 Intake & Output 01/25/17 01/25/17 01/26/17 06:59 18:59 06:59 Intake Total 550 1110 Output Total 800 808 Balance -250 302 Weight 80.286 kg Intake: Oral 550 1110 Output: Urine 800 800 Stool 8 Other: Voiding Method Toilet Toilet # Voids 4 # Bowel Movements 3 - Exam PHYSICAL EXAMINATION: Patient is lying in the bed comfortably, no acute distress, awake alert and oriented.. HEENT: Normocephalic. Neck is supple. Pupils reactive. Nostrils clear. Oral cavity is moist. Ears reveal no drainage. Neck reveals no JVD, carotid bruits, or thyromegaly. CHEST EXAMINATION: Trachea is central. Symmetrical expansion. Lung [place] clear to auscultation and percussion. CARDIAC: Normal S1, S2 with no gallops. No murmurs ABDOMEN: Soft. Bowel sounds normal. No organomegaly. No abdominal bruits. Extremities reveal no edema. No clubbing or cyanosis Neurologically awake, alert, oriented x3 with well-coordinated movements. Skin: no rash or skin lesions Musculoskeletal: no joint swelling or deformity. - Labs CBC & Chem 7: 01/24/17 07:16 01/24/17 07:16 Assessment and Plan Plan: Patient is postop on January 22 laparoscopic right cholectomy for right colon polyp Diarrhea Hyperlipidemia GERD Osteo-arthritis Patient will be continued on IV hydration and replace electrolyte. Patient is still having diarrhea which is expected after colectomy. We can do the current management and further recommendations based on the clinical course.
[2017-01-26] MEDS: D5-0.45% NACL WITH KCL 20MEQ/L 1,000 ML IV SCH (07:24)
--- NOTE | 2017-01-26 08:50 | P.PN ---
Subjective Principal diagnosis: Continuing care This is a 76-year-old white female essentially admitted for significant colectomy related to history of severe colon polyps. The patient is doing quite well postop day #4. Tolerating diet with intermittent diarrhea stated. Pain seems to be fairly well-controlled. Objective - Vital Signs Vital signs: Vital Signs Temp 97.1 F L 01/26/17 07:27 Pulse 75 01/26/17 07:27 Resp 16 01/26/17 02:35 BP 135/65 01/26/17 07:27 Pulse Ox 95 01/26/17 07:27 Intake & Output 01/25/17 01/26/17 01/26/17 18:59 06:59 18:59 Intake Total 1110 1510 Output Total 808 1800 Balance 302 -290 Weight 80.286 kg Intake: Oral 1110 1510 Output: Urine 800 1800 Stool 8 Other: Voiding Method Toilet Toilet # Voids 4 # Bowel Movements 3 - Constitutional General appearance: Present: average body habitus - EENT Eyes: Absent: abnormal pupil - Respiratory Respiratory: bilateral: CTA - Cardiovascular Rhythm: regular Heart sounds: normal: S1, S2 - Gastrointestinal General gastrointestinal: Present: soft - Neurologic Neurologic: Present: CNII-XII intact - Labs CBC & Chem 7: 01/24/17 07:16 01/24/17 07:16 Assessment and Plan (1) Colon polyps Status: Acute (2) Hyperlipidemia Status: Acute (3) Reflux esophagitis Status: Acute Plan: Anticipate discharge in the next 24 hours. Follow-up in 1-2 weeks. Time with Patient: Less than 30
[2017-01-26] MEDS: FAMOTIDINE 20 MG TAB PO SCH (09:02)
[2017-01-26] MEDS: VIT A,C & E-LUTEIN-MINERALS 1 EACH TAB PO SCH (09:02)
[2017-01-26] MEDS: TORSEMIDE 20 MG TAB PO SCH (09:02)
[2017-01-26] MEDS: ALVIMOPAN 12 MG CAPSULE PO SCH (09:03)
[2017-01-26] MEDS ORDERED: ROCURONIUM BROMIDE 10 MG/ML 10 ML VIAL IV ONE (10:52)
[2017-01-26] MEDS ORDERED: GLYCOPYRROLATE 0.2 MG/ML 2 ML VIAL ONE (10:52)
[2017-01-26] MEDS ORDERED: fentaNYL (PF) 50 MCG/ML 2 ML AMP ONE (10:52)
[2017-01-26] MEDS ORDERED: PROPOFOL 10 MG/ML 20 ML VIAL IV ONE (10:52)
[2017-01-26] MEDS ORDERED: NEOSTIGMINE 1 MG/ML 10 ML VIAL ONE (10:52)
[2017-01-26] MEDS ORDERED: SUCCINYLCHOLINE CHLORIDE 100 MG/5 ML SYR IV ONE (10:52)
--- NOTE | 2017-01-26 14:32 | P.DS ---
<Denisse Forrest - Last Filed: 01/26/17 14:32> Providers Date of admission: 01/22/17 08:21 Expected date of discharge: 01/26/17 Attending physician: Raj Sandoval Consults: 01/22/17 11:57 Consult Physician Routine Consulting Provider: Kareem Cunningham Reason/Comments: Medical management Do you want consulting provider notified?: Yes Primary care physician: Kareem Cunningham Hospital Course: 76-year-old female referred to surgical service from PCP Dr. Cunningham underwent a laparoscopic right cholectomy on the 22 of January. Patient has a history of having several large right colon polyps which were impossible to remove via colonoscopy due to the large size. Patient elected to undergo the surgical procedure. Postop there were no postop events. On the day of discharge the abdomen was soft surgical sites benign tolerating soft diet and having loose stools pain medication was effective for pain control she was anxious to be discharged and was felt to be appropriate to proceed with a discharge plan Patient indicated plain Tylenol has been effective for pain control Impression discharge diagnosis History of several large right colon polyps impossible to remove via colonoscopy due to the large size status post laparoscopic right colectomy on January 22 History of esophageal reflux Reflex esophagitis acute Hyperlipidemia The above impression and plan of care have been discussed and directed by signing physician. Denisse Forrest nurse practitioner acting as scribe for signing physician. Dictating for Dr. Moore covering for Dr. sandoval Plan - Discharge Summary New Discharge Prescriptions: New Acetaminophen Tab [Tylenol] 650 mg PO Q6HR PRN tab PRN Reason: Fever and/ or Mild Pain Continue Vits A,C,E/Lutein/Minerals [Ocuvite with Lutein Tablet] 1 tab PO DAILY Torsemide 10 mg PO DAILY Simvastatin [Zocor] 10 mg PO HS Meclizine [Antivert] 25 mg PO TID PRN PRN Reason: Vertigo Aspirin [Adult Low Dose Aspirin EC] 81 mg PO DAILY clonazePAM [KlonoPIN] 1 mg PO BID PRN PRN Reason: Anxiety Calcium Carbonate/Vitamin D3 [Calcium 600-Vit D3 400 Tablet] 1 tab PO DAILY Discharge Medication List Aspirin [Adult Low Dose Aspirin EC] 81 mg PO DAILY 11/14/16 [History] Meclizine [Antivert] 25 mg PO TID PRN 11/14/16 [History] Simvastatin [Zocor] 10 mg PO HS 11/14/16 [History] Torsemide 10 mg PO DAILY 11/14/16 [History] Vits A,C,E/Lutein/Minerals [Ocuvite with Lutein Tablet] 1 tab PO DAILY 11/14/16 [History] clonazePAM [KlonoPIN] 1 mg PO BID PRN 01/07/17 [History] Calcium Carbonate/Vitamin D3 [Calcium 600-Vit D3 400 Tablet] 1 tab PO DAILY 01/22 [History] Acetaminophen Tab [Tylenol] 650 mg PO Q6HR PRN tab 01/26/17 [Rx] Follow up Appointment(s)/Referral(s): Raj Sandoval MD [STAFF PHYSICIAN] - 1 Week Activity/Diet/Wound Care/Special Instructions: No lifting over 10 pounds May shower No tub bath until seen in a follow-up visit Notify surgical service if any fever chills or drainage from the surgical sites Discharge Disposition: HOME SELF-CARE <Moe Moore - Last Filed: 01/26/17 14:51> Hospital Course: As above. Patient doing quite well today. Anxious for discharge. Patient will follow up with Dr. Sandoval in 1 week.
[2017-01-26 14:53] VITALS: BP 113/74; PULSE 98; TEMP 97.5
== END 2017-01-26 16:50 | disposition home or self-care (01) | DRG 331 ==
LOC: 2ORWHC 08:21 → 3SUR 12:00
PROVIDERS: ADMIT Surgery; ATTEND Surgery
PROC: 0DTF4ZZ Resection of Right Large Intestine, Percutaneous Endoscopic Approach (ICD-10-PCS; principal; 2017-01-22 10:25)
DX: K63.5 Polyp of colon (principal); E78.5 Hyperlipidemia, unspecified; M19.90 Unspecified osteoarthritis, unspecified site; H35.30 Unspecified macular degeneration; K21.0 Gastro-esophageal reflux disease with esophagitis; K52.832 Lymphocytic colitis; Z98.49 Cataract extraction status, unspecified eye; Z90.89 Acquired absence of other organs; Z90.710 Acquired absence of both cervix and uterus; Z87.891 Personal history of nicotine dependence; Z80.9 Family history of malignant neoplasm, unspecified; Z83.2 Family history of diseases of the blood and blood-forming organs and certain disorders involving the immune mechanism; Z79.82 Long term (current) use of aspirin; Z79.899 Other long term (current) drug therapy; Z88.3 Allergy status to other anti-infective agents; Z88.0 Allergy status to penicillin
CPT/HCPCS: 36415; 80048; 80051; 80053; 84132; 85025; 85027; 86850; 86900; 86901; 88309; 94760

== ENCOUNTER 2017-12-01 08:08 | Day surgery (SDC) | payer MEDICARE, BC ==
[2017-11-25 13:11] VITALS: BMI 28.6
[~2017-12-01 08:08] MED LIST changes: -DEXAMETHASONE SOD PHOSPHATE 10 MG/ML 1 ML VIAL IV ONE; -HEPARIN SODIUM,PORCINE 5,000 UNIT/ML 1 ML VIAL SQ ONE; -MIDAZOLAM 2 MG/2 ML VIAL IV PRN; -ONDANSETRON 4 MG/2 ML VIAL IVP ONE; -ceFAZolin 2 GM in SODIUM CHLORIDE 0.9% 100 ML IVPB ONE; -metroNIDAZOLE-NS PMX 500 MG in SALINE 1 100ML.BAG IVPB ONE
[2017-12-01 09:01] VITALS: RESP 16; TEMP 98.2
[2017-12-01] MEDS ORDERED: PROPOFOL 10 MG/ML 20 ML VIAL IV ONE (09:06)
--- NOTE | 2017-12-01 09:11 | P.GSHP ---
History of Present Illness H&P Date: 12/01/17 Chief Complaint: GERD, history of colon polyps Asst. 6-year-old female referred from Dr. Cunningham. Patient presents today for EGD colonoscopy. She's had issues with GERD. Patient also has a history of a previous partial colectomy for a colon polyp. Past Medical History Past Medical History: Eye Disorder, GERD/Reflux, Hyperlipidemia, Osteoarthritis (OA) Additional Past Medical History / Comment(s): macular degeneration, History of Any Multi-Drug Resistant Organisms: None Reported Past Surgical History: Appendectomy, Bowel Resection, Hernia Repair, Hysterectomy, Orthopedic Surgery Additional Past Surgical History / Comment(s): cataracts; knee arthroscopy, sameer fundoplasty 01-08-17; bowel resection for polyps, hiatal hernia repair Past Anesthesia/Blood Transfusion Reactions: No Reported Reaction Smoking Status: Former smoker - Past Family History Father Family Medical History: Cancer Mother Family Medical History: Deep Vein Thrombosis (DVT) Brother(s) Family Medical History: Cancer Additional Family Medical History / Comment(s): 3 BROTHERS HAD CANCER Son(s) Family Medical History: Deep Vein Thrombosis (DVT) Medications and Allergies Home Medications Medication Instructions Recorded Confirmed Type Aspirin [Adult Low Dose Aspirin EC] 81 mg PO DAILY 11/14/16 12/01/17 History Meclizine [Antivert] 25 mg PO TID PRN 11/14/16 12/01/17 History Simvastatin [Zocor] 10 mg PO HS 11/14/16 12/01/17 History Torsemide 10 mg PO DAILY 11/14/16 12/01/17 History Vits A,C,E/Lutein/Minerals 1 tab PO DAILY 11/14/16 12/01/17 History [Ocuvite with Lutein Tablet] clonazePAM [KlonoPIN] 1 mg PO BID PRN 01/07/17 12/01/17 History Calcium Carbonate/Vitamin D3 1 tab PO DAILY 01/13/17 12/01/17 History [Calcium 600-Vit D3 400 Tablet] Acetaminophen Tab [Tylenol] 650 mg PO Q6HR PRN tab 01/26/17 12/01/17 Rx Allergies Allergy/AdvReac Type Severity Reaction Status Date / Time Penicillins AdvReac Severe Diarrhea Verified 12/01/17 08:53 terbinafine [From Lamisil] AdvReac Severe Diarrhea Verified 12/01/17 08:53 Surgical - Exam Vital Signs Temp Pulse Resp BP Pulse Ox 98.2 F 87 16 200/87 95 12/01/17 08:59 12/01/17 08:59 12/01/17 08:59 12/01/17 08:59 12/01/17 08:59 - General well developed, no distress - Eyes PERRL - ENT normal pinna - Neck no masses - Respiratory normal expansion - Cardiovascular Rhythm: regular - Abdomen Abdomen: soft, non tender Assessment and Plan Assessment: History of GERD. We'll perform EGD. History of colon polyps. We'll perform colonoscopy.
--- NOTE | 2017-12-01 09:36 | P.OP ---
Date of Procedure: 12/01/17 Preoperative Diagnosis: History of colon polyps GERD Postoperative Diagnosis: Antral gastritis Mild esophagitis No evidence of hiatal hernia Diverticulosis Procedure(s) Performed: EGD Colonoscopy Anesthesia: MAC Surgeon: Raj Yoder Pathology: other (Antrum, esophagus) Condition: stable Disposition: PACU Description of Procedure: The patient's placed on the endoscopy table in the lateral position. She received IV sedation. The gastroscope placed oropharynx and passed in the esophagus and into the stomach. Scope was then placed through the pylorus. The first and second portion of the duodenum appeared normal. The scope was then brought back the antrum and this was mildly inflamed. A biopsies performed. The scope was then retroflexed the meters stomach appeared normal. The GE junction was at 40 cm. There is no significant hiatal hernia. The distal esophagus appeared mildly inflamed a biopsies performed. The proximal esophagus appeared normal. The scope was withdrawn from the patient. Next digital rectal exam was performed which revealed no abnormalities. The flexible colonoscope was then placed patient anus passed through the colon. The patient had a previous right colectomy. The ileocolonic anastomosis visualized. The remainder of the ascending colon, transverse colon appeared normal. In the descending and sigmoid colon there is extensive diverticular changes. The scope was then brought back the rectum and this appeared normal. Scope was withdrawn for patient.
[2017-12-01 10:00] VITALS: BP 189/90; PULSE 51
== END 2017-12-01 10:35 | disposition home or self-care (01) ==
LOC: ORWHC2ENDO 08:08
PROVIDERS: ATTEND Surgery
DX: Z12.11 Encounter for screening for malignant neoplasm of colon (principal); K31.9 Disease of stomach and duodenum, unspecified; K21.0 Gastro-esophageal reflux disease with esophagitis; K29.60 Other gastritis without bleeding; K57.30 Diverticulosis of large intestine without perforation or abscess without bleeding; Z90.49 Acquired absence of other specified parts of digestive tract; Z86.010 Personal history of colon polyps; Z87.891 Personal history of nicotine dependence; E78.5 Hyperlipidemia, unspecified; F41.9 Anxiety disorder, unspecified; M19.90 Unspecified osteoarthritis, unspecified site; H35.30 Unspecified macular degeneration; Z79.82 Long term (current) use of aspirin; Z79.899 Other long term (current) drug therapy; Z88.0 Allergy status to penicillin; Z88.8 Allergy status to other drugs, medicaments and biological substances
CPT/HCPCS: 88305; 43239; J2704; G0105; 45378

== ENCOUNTER → 2018-02-16 | Outpatient (CLI) | payer MEDICARE, BC | END | disposition home or self-care (01) | LOC: LABPAT 12:32 | PROVIDERS: ATTEND Orthopaedic Surgery | DX: Z01.812 Encounter for preprocedural laboratory examination (principal); M16.11 Unilateral primary osteoarthritis, right hip | CPT/HCPCS: 36415; 86850; 86900; 86901; 87070 ==

== ENCOUNTER 2018-02-22 09:00 | Inpatient (IN) | payer MEDICARE, BC ==
[2018-02-12 11:57] VITALS: BMI 28.3
--- NOTE | 2018-02-21 10:38 | HP ---
HISTORY AND PHYSICAL Brigida Maurer is a 77-year-old patient seen with symptomatic right hip osteoarthritis. We discussed treatment options. She elected to proceed with right total hip arthroplasty. Consent was obtained. Medical clearance was provided by Dr. Cunningham. PAST MEDICAL HISTORY: Hypertension, hyperlipidemia, gastroesophageal reflux disease. PAST SURGICAL HISTORY: Appendectomy, hysterectomy. MEDICATIONS: Prilosec, simvastatin, torsemide, aspirin, Antivert. ALLERGIES: None. SOCIAL HISTORY: The patient denies current tobacco use. PHYSICAL EXAMINATION: Evaluation of the right hip: Range of motion is limited with severe pain. Positive hip impingement sign. Diffuse tenderness about the hip girdle. Straight leg raise negative. Distal neurovascular exam intact. RADIOGRAPHS: Radiographs of the right hip reveal severe osteoarthritic changes. IMPRESSION: 1. Right hip osteoarthritis. 2. Hypertension. 3. Hyperlipidemia. 4. Gastroesophageal reflux disease. PLAN: Direct anterior right total hip arthroplasty. Surgery is 02/22/2018 MMODL / IJN: [id number] /
[~2018-02-22 09:00] MED LIST changes: +ACETAMINOPHEN TAB 500 MG TAB PO ONE; +DEXAMETHASONE SOD PHOSPHATE 10 MG/ML 1 ML VIAL IV ONE; +HYDROmorphone 0.5 MG/0.5 ML SYRINGE IVP PRN; +MELOXICAM 7.5 MG TAB PO ONE; +ONDANSETRON 4 MG/2 ML VIAL IVP ONE; +TRANEXAMIC ACID 1,000 MG in SODIUM CHLORIDE 0.9% 50 ML IVPB ONE; +ceFAZolin IN SWFI 2 GM/20 ML SYRINGE IVP ONE
[2018-02-22] MEDS ORDERED: LIDOCAINE 1% 20 ML VIAL (10MG/ML) FOR IV START INTRADERMA ONE (14:01)
[2018-02-22] MEDS ORDERED: TRANEXAMIC ACID 1,000 MG/10 ML VIAL ONE (14:17)
[2018-02-22] MEDS ORDERED: fentaNYL (PF) 50 MCG/ML 2 ML AMP ONE (14:17)
[2018-02-22] MEDS ORDERED: SODIUM CHLORIDE 0.9% 100 ML BAG ONE (14:17)
[2018-02-22] MEDS ORDERED: MIDAZOLAM 2 MG/2 ML VIAL ONE (14:17)
[2018-02-22] MEDS ORDERED: ROPIVACAINE 246.25 MG, EPINEPHrine 0.5 MG, KETOROLAC 30 MG, cloNIDine HCL/PF 80 MCG, WA... MISCELLANE ONE ×5 (14:20)
[2018-02-22] MEDS ORDERED: CLINDAMYCIN 1,800 MG in SODIUM CHLORIDE 0.9% IRRIGATIO 3,000 ML IRRIGATION ONE (14:58)
[2018-02-22] MEDS ORDERED: LACTATED RINGERS 1,000 ML IV ONE (15:53)
[2018-02-22] MEDS ORDERED: HYDROcodone/APAP 7.5-325MG 1 EACH TAB PO PRN ×2 (16:21)
[2018-02-22] MEDS ORDERED: HYDROmorphone 1 MG/ML 1 ML SYRINGE IVP PRN ×3 (16:21)
[2018-02-22] MEDS ORDERED: ONDANSETRON 4 MG/2 ML VIAL IVP PRN (16:21)
[2018-02-22] MEDS ORDERED: NALOXONE 0.4 MG/ML 1 ML VIAL IV PRN (16:21)
--- NOTE | 2018-02-22 16:21 | P.OP ---
Date of Procedure: 02/22/18 Preoperative Diagnosis: Right hip osteoarthritis Postoperative Diagnosis: Right hip osteoarthritis Procedure(s) Performed: Direct anterior right total hip arthroplasty Implants: 1. Depuy Corail KA size 13 press-fit femoral stem 2. Depuy pinnacle 56 mm press-fit acetabular shell 3. Depuy pinnacle polyethylene acetabular liner neutral 36 mm ID 58 mm OD 4. Depuy metal femoral head 36 mm -2 Anesthesia: local, spinal Surgeon: Kolby Arzate Retort Pre Cooker #1: Gualberto Garcia Estimated Blood Loss (ml): 700 Pathology: other (Femoral head) Condition: stable Disposition: PACU Indications for Procedure: 77-year-old patient seen with symptomatic right hip osteoarthritis. After having treatment options discussed, she elected to proceed with total hip arthroplasty. Operative Findings: See description of procedure Description of Procedure: The patient was taken to the operative suite. Patient underwent a spinal anesthetic by the department of anesthesia. Patient was then transferred to the [place] table. Patient was given preoperative IV antibiotics and TXA. Both lower extremities were placed in standard leg spars. The hip was then prepped and draped in the normal sterile orthopedic fashion. A standard anterior incision was made beginning 3 cm lateral and 1 cm distal to the ASIS extending 10 cm. Dissection was then carried down through the subcutaneous soft tissues down to the fascia overlying the tensor fascia sherman. An incision was now made through the fascia. Careful dissection was taken down exposing the tensor fascia sherman muscle. A Cobra retractor was now placed along the medial femoral neck and a second one along the lateral femoral neck. The venous circumflex vessels were now identified, cauterized and clipped. We identified the anterior hip capsule. An incision was made through the hip capsule along the lateral border. I performed a partial anterior capsulectomy. Retractors were now placed around the femoral neck itself. A femoral neck cut was now made with a sagittal saw. It was completed with an osteotome at the lateral neck area. The femoral head was now removed without difficulty. The extremity was now rotated to 45 of external rotation. It was locked in position. Residual labrum was now debrided out. Serial reaming was performed of the acetabulum while Jose BRIDGES assisted holding an anterior retractor for exposure. Once we reached the appropriate size and a trial was position and fit nicely. The appropriate size was now chosen opened and made available. It was introduced into the acetabulum without difficulty. The C-arm/fluoroscopy was now brought into the operative field. We made sure we had a true AP pelvic view. We now under direct C-arm/fluoroscopy introduced into the acetabular component with appropriate version and inclination. I held the cup in appropriate position well Jose BRIDGES used a mallet to seat the acetabular component. I noted the component now to be well seated and stable. Acetabular cup introduce her was removed. The C-arm was pulled back. An appropriate liner was introduced and clicked into position. It was felt to be stable. At this point retractors were removed. The extremity was now placed into 120 external rotation with no traction. The leg was now dropped to the ground and adducted. Appropriate retractors were now positioned along the proximal femur. We also placed our femoral look into position. Additional capsular releasing was performed to gain access to the proximal femur. We now used a box osteotome. A canal finder was now utilized. Serial broaching was now performed with the assistance of Jose BRIDGES tapping the broaches down with a mallet while held the broach in appropriate rotation and position. This was done until we reached the appropriate size with good overall rotational stability. Appropriate calcar planing was performed. A trial head/neck was placed into position. The hip was now reduced. The C-arm/fluoroscopy was brought back into the operative field. A spot film was obtained of the nonoperative hip. A spot film was obtained of the trial components. Overlays were performed, we noted good overall alignment and positioning for determining leg length. The C- arm/fluoroscopy was pulled back. Retractors were repositioned and the hip was dislocated. The leg was again taken down to the ground and adducted. Appropriate retractors were repositioned as well as the femoral hook. All trial components were removed. The femoral implant was opened along with the femoral head. The femoral implant was introduced on the appropriate handle into our pre-broached area. I held the component position well Jose BRIDGES used a mallet to seat the femoral component. The femoral component was now noted to be well seated and stable.. The femoral head was introduced with good positioning and fixation noted. Retractors were now removed. The hip was now reduced. There appeared be good positioning of the hip confirmed on intraoperative fluoroscopy. Spot films were obtained to document this. A second gram of TXA was given. The deep and superficial soft tissues were infiltrated with local analgesic. Bipolar cautery had been utilized intermittently through the procedure for hemostasis. The wound was irrigated copiously with pulse lavage mechanical irrigation. The fascia was repaired with Vicryl suture. The subcutaneous soft tissues were repaired in layers with Vicryl suture. The skin was approximated with pernio/Dermabond. Sterile dressings were applied. Patient was then awakened, transferred to a bed and taken to recovery in stable condition. Jose BRIDGES assisted with the complex procedure.
[2018-02-22] MEDS: traMADol 50 MG TAB PO SCH ×2 (18:51→23:15)
--- NOTE | 2018-02-22 20:25 | XR ---
EXAMINATION TYPE: XR Hip Limited RT DATE OF EXAM: 02/22/2018 COMPARISON: NONE HISTORY: Postop TECHNIQUE: One view submitted. FINDINGS: There is a prosthetic hip in near anatomic alignment. There is soft tissue edema and emphysema. IMPRESSION: 1. Postoperative change. Appears in near-anatomic alignment.
[2018-02-22] MEDS: SODIUM CHLORIDE 0.9% 1,000 ML IV SCH (20:33)
[2018-02-22] MEDS ORDERED: SENNOSIDES-DOCUSATE SODIUM 1 EACH TAB PO SCH (21:00)
[2018-02-22] MEDS: ceFAZolin IN SWFI 2 GM/20 ML SYRINGE IVP SCH (23:15)
[2018-02-23] MEDS ORDERED: clonazePAM 0.5 MG TAB PO PRN (07:18)
[2018-02-23] MEDS ORDERED: MECLIZINE 25 MG TAB PO PRN (07:18)
[2018-02-23 07:35] VITALS: BP 124/66; PULSE 68; RESP 12; TEMP 98.5
[2018-02-23 07:40] LABS: Basophils % (A) 0 %; Eosinophils % (A) 0 %; HCT 30.3 % (34.0-46.0); Lymphocytes # (A) 1.3 k/uL (1.0-4.8); Lymphocytes % (A) 14 %; Mean Platelet Volume 7.2; Monocytes # (A) 0.5 k/uL (0-1.0); Monocytes % (A) 5 %; Neutrophils # (A) 7.7 k/uL (1.3-7.7); Neutrophils % (A) 80 %; Platelet Count 172 k/uL (150-450); RBC 3.33 m/uL (3.80-5.40); RDW 13.4 % (11.5-15.5); WBC 9.7 k/uL (3.8-10.6)
[2018-02-23] MEDS: traMADol 50 MG TAB PO SCH ×2 (08:26→12:47)
[2018-02-23] MEDS: ceFAZolin IN SWFI 2 GM/20 ML SYRINGE IVP SCH (08:27)
[2018-02-23] MEDS ORDERED: ENOXAPARIN 40 MG/0.4 ML SYRINGE SQ SCH (09:00)
[2018-02-23] MEDS ORDERED: PANTOPRAZOLE 40 MG TABLET PO SCH (09:00)
[2018-02-23] MEDS ORDERED: MELOXICAM 7.5 MG TAB PO SCH (09:00)
[2018-02-23] MEDS ORDERED: VIT A,C & E-LUTEIN-MINERALS 1 EACH TAB PO SCH (09:00)
[2018-02-23] MEDS ORDERED: FAMOTIDINE 20 MG TAB PO SCH (09:00)
[2018-02-23] MEDS ORDERED: CALCIUM CARB-VIT D 500MG-200UN 1 EACH TAB PO SCH (09:00)
[2018-02-23] MEDS ORDERED: TORSEMIDE 20 MG TAB PO SCH (09:00)
--- NOTE | 2018-02-23 09:36 | P.HPIM ---
History of Present Illness H&P Date: 02/23/18 Chief Complaint: Right hip arthroplasty. This is a consultation on a 77-year-old white female, who is fairly well known to my practice, who has status post right hip arthroplasty. The patient states pain is fairly well controlled today. No overt chest pain or shortness of breath. No significant nausea or vomiting. Postoperative pain is otherwise this fairly well controlled. The patient states no voiding difficulties. She is seen postop day #1. No constipation or diarrhea as stated. Review of Systems Constitutional: Denies chills, Denies fever Eyes: denies blurred vision, denies pain Ears, nose, mouth and throat: Denies headache, Denies sore throat Cardiovascular: Denies chest pain, Denies shortness of breath Gastrointestinal: Denies abdominal pain, Denies diarrhea, Denies nausea, Denies vomiting Genitourinary: Denies dysuria, Denies hematuria Musculoskeletal: Denies myalgias Past Medical History Past Medical History: Eye Disorder, GERD/Reflux, Hyperlipidemia, Osteoarthritis (OA) Additional Past Medical History / Comment(s): macular degeneration, hx migraines , diverticulits, varicose veins, SOB on exertion, hx hiatal hernia, "leaky bladder" History of Any Multi-Drug Resistant Organisms: None Reported Past Surgical History: Appendectomy, Bowel Resection, Hernia Repair, Hysterectomy, Orthopedic Surgery Additional Past Surgical History / Comment(s): hardeep cataracts, rt knee arthroscopy, sameer fundoplasty Past Anesthesia/Blood Transfusion Reactions: No Reported Reaction Past Psychological History: No Psychological Hx Reported Smoking Status: Former smoker Past Alcohol Use History: Occasional Additional Past Alcohol Use History / Comment(s): quit smoking 2007, smoked 40 years, 1 pkg a day Past Drug Use History: None Reported - Past Family History Father Family Medical History: Cancer Mother Family Medical History: Deep Vein Thrombosis (DVT) Brother(s) Family Medical History: Cancer Additional Family Medical History / Comment(s): 3 BROTHERS HAD CANCER Son(s) Family Medical History: Deep Vein Thrombosis (DVT) Medications and Allergies Home Medications Medication Instructions Recorded Confirmed Type Aspirin [Adult Low Dose Aspirin EC] 81 mg PO DAILY 11/14/16 02/22/18 History Meclizine [Antivert] 25 mg PO TID PRN 11/14/16 02/22/18 History Simvastatin [Zocor] 10 mg PO HS 11/14/16 02/22/18 History Torsemide 10 mg PO DAILY 11/14/16 02/22/18 History Vits A,C,E/Lutein/Minerals 1 tab PO DAILY 11/14/16 02/22/18 History [Ocuvite with Lutein Tablet] Calcium Carbonate/Vitamin D3 1 tab PO DAILY 01/13/17 02/22/18 History [Calcium 600-Vit D3 400 Tablet] Acetaminophen Tab [Tylenol] 650 mg PO Q6HR PRN 02/12/18 02/22/18 History Pantoprazole Sodium [Protonix] 40 mg PO DAILY 02/12/18 02/22/18 History clonazePAM [Clonazepam] 0.5 mg PO BID PRN 02/12/18 02/22/18 History Allergies Allergy/AdvReac Type Severity Reaction Status Date / Time Penicillins Allergy Severe Diarrhea Verified 02/22/18 17:01 terbinafine [From Lamisil] Allergy Severe Diarrhea Verified 02/22/18 17:01 Physical Exam Vitals: Vital Signs Temp Pulse Pulse Resp BP Pulse Ox 02/23/18 07:00 98.5 F 68 12 124/66 95 02/23/18 01:37 97.7 F 74 15 123/61 94 L 02/22/18 19:00 87 129/71 02/22/18 18:45 79 122/71 02/22/18 18:15 84 114/64 02/22/18 18:00 84 122/66 02/22/18 17:45 97.5 F L 79 12 155/78 98 02/22/18 17:15 65 16 131/60 98 02/22/18 17:00 68 16 146/67 92 L 02/22/18 16:45 72 16 138/58 93 L 02/22/18 16:38 97.6 F 78 16 141/63 96 02/22/18 13:30 98.2 F 68 16 194/81 96 Intake and Output 02/22/18 02/23/18 02/23/18 22:59 06:59 14:59 Intake Total 700 Output Total 700 Balance 0 Intake: IV 700 Output: Estimated Blood Loss 700 Other: # Voids 1 Weight 77.111 kg - Constitutional General appearance: no acute distress - EENT Eyes: EOMI - Neck Neck: no lymphadenopathy - Respiratory Respiratory: bilateral: CTA - Cardiovascular Rhythm: regular Abnormal Heart Sounds: no S3 Gallop - Gastrointestinal General gastrointestinal: soft, no tenderness - Neurologic Neurologic: CNII-XII intact Results CBC & Chem 7: 02/23/18 06:19 Labs: Abnormal Lab Results - Last 24 Hours (Table) 02/23/18 Range/Units 06:19 RBC 3.33 L (3.80-5.40) m/uL Hgb 10.0 L (11.4-16.0) gm/dL Hct 30.3 L (34.0-46.0) % Thrombosis Risk Factor Assmnt - Choose All That Apply Each Factor Represents 1 point: Hx of IBD, Obesity (BMI >25), Varicose veins Each Risk Factor Represents 2 Points: Major surgery Each Risk Factor Represents 3 Points: Age 75 years or older Each Risk Factor Represents 5 Points: Elective major lower extremity arthoplasty Thrombosis Risk Factor Assessment Total Risk Factor Score: 13 Thrombosis Risk Factor Assessment Level: High Risk Assessment and Plan (1) Osteoarthritis of right hip Current Visit: Yes Status: Acute Code(s): M16.11 - UNILATERAL PRIMARY OSTEOARTHRITIS, RIGHT HIP SNOMED Code(s): 709884103856401 (2) Status post total hip replacement, right Current Visit: Yes Status: Acute Code(s): Z96.641 - PRESENCE OF RIGHT ARTIFICIAL HIP JOINT SNOMED Code(s): 978512853309 (3) Aortic stenosis Current Visit: No Status: Acute Code(s): I35.0 - NONRHEUMATIC AORTIC (VALVE ) STENOSIS SNOMED Code(s): 66224152 (4) Hyperlipidemia Current Visit: No Status: Acute Code(s): E78.5 - HYPERLIPIDEMIA, UNSPECIFIED SNOMED Code(s): 99213989 Plan: Reconcile home medications. Check CBC and CMP in a.m Iincrease ambulation. Defer anticoagulation to orthopedics. Reconcile home medications. The prep we will continue follow daily while the patient is admitted. See orders otherwise. Time with Patient: Less than 30
--- NOTE | 2018-02-23 10:26 | FL ---
EXAMINATION TYPE: FL guidance operating room DATE OF EXAM: 02/22/2018 HISTORY: Flouroscopy time 1 minute and 28 seconds of fluoroscopy provided. IMPRESSION: 1. Fluoroscopy time.
--- NOTE | 2018-02-23 12:04 | P.PN ---
Subjective Progress Note Date: 02/23/18 Principal diagnosis: Status post right total hip arthroplasty Patient seen today resting in her hospital bed, she appears comfortable. She's ambulated well therapy. She denies any chest pain or shortness of breath. Objective - Vital Signs Vital signs: Vital Signs Temp 98.5 F 02/23/18 07:00 Pulse 68 02/23/18 07:00 Resp 12 02/23/18 07:00 BP 124/66 02/23/18 07:00 Pulse Ox 95 02/23/18 07:00 Intake & Output 02/22/18 02/23/18 02/23/18 18:59 06:59 18:59 Intake Total 1701 Output Total 700 Balance 1001 Weight 77.111 kg Intake: IV 1701 Output: Estimated Blood Loss 700 Other: # Voids 1 - Exam Right lower extremity: Incision is clean, dry, and intact. The prineo tape is in good condition. There is minimal soft tissue swelling and ecchymosis surrounding the medial and lateral aspects of the incision. Calf is soft, no tenderness with palpation. Plantar flexion, dorsiflexion, EHL, FHL are intact. Sensory exam to light touch throughout the extremity is intact, dorsal pedis pulses 2+. - Labs CBC & Chem 7: 02/23/18 06:19 Labs: Abnormal Lab Results - Last 24 Hours (Table) 02/23/18 Range/Units 06:19 RBC 3.33 L (3.80-5.40) m/uL Hgb 10.0 L (11.4-16.0) gm/dL Hct 30.3 L (34.0-46.0) % Assessment and Plan Plan: Assessment: Postoperative day 1 status post right total hip arthroplasty Plan: Pain control, we'll discharge home on tramadol. Patient doesn't [place] at home GI and DVT prophylaxis, aspirin 325 mg twice a day of discharge Wound care instructions were discussed Home care and physical therapy after discharge Medical recommendations Discharge planning: Patient will be discharged home today Time with Patient: Less than 30
--- NOTE | 2018-02-23 12:08 | P.DS ---
Providers Date of admission: 02/22/18 12:25 Expected date of discharge: 02/23/18 Attending physician: Kolby Arzate Consults: 02/22/18 16:21 Consult Physician Routine Consulting Provider: Kareem Cunningham Consult Reason/Comments: Medical management Do you want consulting provider notified?: Yes Primary care physician: Kareem Cunningham Hospital Course: Date of admission: 02/22/2018 Date of discharge: 02/23/2018 Admission diagnosis: Status post right total hip arthroplasty Discharge diagnosis: Same Attending physician: Dr. Arzate Surgical procedures: Right total hip arthroplasty Brief history: Patient is a 77-year-old female with a history of progressive primary right hip osteoarthritis. At this point patient has failed conservative treatment measures and has opted to proceed with a elective right total hip arthroplasty. Hospital course: Details of patient's surgery can be found in operative report. Patient tolerated the procedure well and was subsequently transported to orthopedic floor. Patient's orthopeidc and medical care was provided daily. Patient had daily laboratory tests performed for evaluation of overall blood counts. Patient had daily physical therapy to include strengthening range of motion as well as education with walker ambulation. Patient was treated with Lovenox for their postoperative DVT prophylaxis during their inpatient stay. Patient was noted to have a relatively uneventful postoperative course. Patient reported satisfactory pain control with oral pain medications by postoperative day 0. Patient showed satisfactory progress with physical therapy. Patient moved steadily through the program and had no difficulty meeting the goals by postoperative day 1. Given patient's otherwise satisfactory course and having met physical therapy goals, plan is to discharge patient home on postoperative day 1. Discharge condition/disposition: Patient will be discharged home in stable condition. Discharge medications: Instructions are given on resumption of patient's normal daily medications per primary care recommendation, in addition patient will be prescribed tramadol 50 mg, aspirin 325 mg. Discharge instructions: 1. Wound care and infection precautions, keep incision dry and covered while showering, no lotions, creams, moisturizers. No soaking, tubs, pools, hottubs. Do not scrub over the incision. 2. Weight-bear as tolerated with walker / cane until follow-up. 3. Ice and elevate when necessary. Do not exceed 20 minutes per hour with ice pack. 4. Utilize compression sleeve until seen at first follow up appointment. 5. Visiting nursing care. 6. Home physical therapy. 7. Pain meds and anticoagulants per prescription. 8. Pain medication has potential to cause constipation. Increase oral fluid and fiber intake. Contact primary care provider if you have not had a bowel movement within 48 hours after discharge 9. No anti-inflammatory medication until discussed at first post operative visit, this including Motrin, Aleve, Mobic, Diclofenac. 10. Follow up in office at 2 weeks postop with Jose Garcia PA-C 11. Follow up with your primary care doctor 7-10 days after discharge. 12. Contact [facility] with any questions, . Procedures: Right total hip arthroplasty Patient Condition at Discharge: Good Plan - Discharge Summary Discharge Rx Participant: No New Discharge Prescriptions: New Aspirin 325 mg PO BID #60 tab traMADol HCl [Ultram] 50 mg PO Q6H PRN #28 tab PRN Reason: Pain No Action Vits A,C,E/Lutein/Minerals [Ocuvite with Lutein Tablet] 1 tab PO DAILY Torsemide 10 mg PO DAILY Simvastatin [Zocor] 10 mg PO HS Meclizine [Antivert] 25 mg PO TID PRN PRN Reason: Vertigo Calcium Carbonate/Vitamin D3 [Calcium 600-Vit D3 400 Tablet] 1 tab PO DAILY clonazePAM [Clonazepam] 0.5 mg PO BID PRN PRN Reason: Anxiety Pantoprazole Sodium [Protonix] 40 mg PO DAILY Acetaminophen Tab [Tylenol] 650 mg PO Q6HR PRN PRN Reason: Pain Discharge Medication List Meclizine [Antivert] 25 mg PO TID PRN 11/14/16 [History] Simvastatin [Zocor] 10 mg PO HS 11/14/16 [History] Torsemide 10 mg PO DAILY 11/14/16 [History] Vits A,C,E/Lutein/Minerals [Ocuvite with Lutein Tablet] 1 tab PO DAILY 11/14/16 [History] Calcium Carbonate/Vitamin D3 [Calcium 600-Vit D3 400 Tablet] 1 tab PO DAILY 01/22 [History] Acetaminophen Tab [Tylenol] 650 mg PO Q6HR PRN 02/12/18 [History] Pantoprazole Sodium [Protonix] 40 mg PO DAILY 02/12/18 [History] clonazePAM [Clonazepam] 0.5 mg PO BID PRN 02/12/18 [History] Aspirin 325 mg PO BID #60 tab 02/23/18 [Rx] traMADol HCl [Ultram] 50 mg PO Q6H PRN #28 tab 02/23/18 [Rx] Follow up Appointment(s)/Referral(s): Kareem Cunningham MD [Primary Care Provider] - 03/02/18 2:00 pm [facility], [NON-STAFF] - Gualberto Garcia PAC [PHYSICIAN MERCHANDISE EXECUTIVE] - 03/10/18 2:20 pm Activity/Diet/Wound Care/Special Instructions: Orthopedic Discharge Instructions: 1. Wound care and infection precautions, keep incision dry and covered while showering, no lotions, creams, moisturizers. No soaking, pools, hot tubs. Do not scrub over incision. 2. Weight-bear as tolerated with walker / cane until follow-up. 3. Ice and elevate when necessary. Do not exceed 20 minutes per hour with ice pack. 4. Utilize compression sleeve until seen at first follow up appointment. 5. Pain meds and anticoagulants per prescription. 6. Pain medication has potential to cause constipation. Increase oral fluid and fiber intake. Contact primary care provider if you have not had a bowel movement within 48 hours after discharge. 7. No anti-inflammatory medication until discussed at first post operative visit, this including Motrin, Aleve, Mobic, Diclofenac. 8. Follow up in office at 2 weeks postop with Jose Garcia PA-C 9. Follow up with your primary care doctor 7-10 days after discharge. 10. Contact [facility] with any questions, . Discharge Disposition: HOME WITH HOME HEALTH SERVICES
[2018-02-23] MEDS: SODIUM CHLORIDE 0.9% 1,000 ML IV SCH (12:49)
[2018-02-23] MEDS ORDERED: ATORVASTATIN 10 MG TAB PO SCH (21:00)
== END 2018-02-23 14:51 | disposition home health service (06) | DRG 470 ==
LOC: 2ORMAIN 12:25 → 3SUR 17:22
PROVIDERS: ADMIT Orthopaedic Surgery; ATTEND Orthopaedic Surgery
PROC: 0SR902A Replacement of Right Hip Joint with Metal on Polyethylene Synthetic Substitute, Uncemented, Open Approach (ICD-10-PCS; principal; 2018-02-22 14:50)
DX: M16.11 Unilateral primary osteoarthritis, right hip (principal); E78.5 Hyperlipidemia, unspecified; H35.30 Unspecified macular degeneration; I10 Essential (primary) hypertension; I35.0 Nonrheumatic aortic (valve) stenosis; K21.9 Gastro-esophageal reflux disease without esophagitis; G43.909 Migraine, unspecified, not intractable, without status migrainosus; I83.90 Asymptomatic varicose veins of unspecified lower extremity; K44.9 Diaphragmatic hernia without obstruction or gangrene; K57.90 Diverticulosis of intestine, part unspecified, without perforation or abscess without bleeding; E78.00 Pure hypercholesterolemia, unspecified; Z90.710 Acquired absence of both cervix and uterus; Z90.49 Acquired absence of other specified parts of digestive tract; Z79.82 Long term (current) use of aspirin; Z79.899 Other long term (current) drug therapy; Z87.891 Personal history of nicotine dependence; Z88.0 Allergy status to penicillin; Z88.8 Allergy status to other drugs, medicaments and biological substances; Z98.42 Cataract extraction status, left eye; Z98.41 Cataract extraction status, right eye; Z96.1 Presence of intraocular lens; Z80.6 Family history of leukemia; Z82.49 Family history of ischemic heart disease and other diseases of the circulatory system; Z82.0 Family history of epilepsy and other diseases of the nervous system
CPT/HCPCS: 36415; 73501; 85025; 86850; 86900; 86901; 88300

== ENCOUNTER → 2018-06-10 | Outpatient (CLI) | payer MEDICARE, BC ==
[2018-06-10 13:59] LABS: Basophils % (A) 1 %; Eosinophils # (A) 0.2 k/uL (0-0.7); Eosinophils % (A) 3 %; HCT 38.6 % (34.0-46.0); HGB 12.3 gm/dL (11.4-16.0); Hypochromasia Slight; Lymphocytes # (A) 2.1 k/uL (1.0-4.8); Lymphocytes % (A) 36 %; MCHC 31.9 g/dL (31.0-37.0); MCV 81.5 fL (80.0-100.0); Mean Platelet Volume 6.8; Monocytes # (A) 0.4 k/uL (0-1.0); Monocytes % (A) 6 %; Neutrophils % (A) 50 %; Platelet Count 251 k/uL (150-450); RBC 4.74 m/uL (3.80-5.40); RDW 15.5 % (11.5-15.5); WBC 5.9 k/uL (3.8-10.6)
[2018-06-10 14:04] LABS: INR 0.9 (<1.2); Partial Thromboplastin Time 23.6 sec (22.0-30.0); Prothrombin Time 9.9 sec (9.0-12.0)
[2018-06-10 14:26] LABS: Potassium 4.6 mmol/L (3.5-5.1)
== END | disposition home or self-care (01) ==
LOC: LABPAT 13:14
PROVIDERS: ATTEND Orthopaedic Surgery
DX: Z01.812 Encounter for preprocedural laboratory examination (principal); M17.11 Unilateral primary osteoarthritis, right knee; Z79.01 Long term (current) use of anticoagulants
CPT/HCPCS: 36415; 80051; 85025; 85610; 85730; 87070

== ENCOUNTER 2018-06-21 05:31 | Inpatient (IN) | payer MEDICARE, BC ==
[2018-06-14 11:53] VITALS: BMI 29.1
--- NOTE | 2018-06-20 14:42 | HP ---
HISTORY AND PHYSICAL HISTORY: A 77-year-old patient seen with symptomatic right knee osteoarthritis. Treatment options were discussed with her. She elected to proceed with right total knee arthroplasty. Consent was obtained. Medical clearance provided by Dr. Cunningham. PAST MEDICAL HISTORY: Hypertension, hyperlipidemia, gastroesophageal reflux disease. PAST SURGICAL HISTORY: Appendectomy, total hip arthroplasty, hysterectomy. MEDICATIONS: Aldactazide, Prilosec, simvastatin, torsemide. ALLERGIES: None reported. SOCIAL HISTORY: Patient denies tobacco use. PHYSICAL EXAMINATION: Evaluation of the right knee, range of motion 0 to 120 degrees. Tenderness along the medial and lateral joint lines. Crepitus along the lateral and patellofemoral compartments. Ligaments stable. Hip rotation without pain. Distal neurovascular exam is intact. RADIOGRAPHS: Radiographs of the right knee revealed severe lateral and moderate patellofemoral compartment osteoarthritis. IMPRESSION: 1. Right knee osteoarthritis. 2. Hypertension. 3. Hyperlipidemia. 4. Gastroesophageal reflux disease. PLAN: Right total knee arthroplasty. MMODL / IJN: [id number] /
[~2018-06-21 05:31] MED LIST changes: -DEXAMETHASONE SOD PHOSPHATE 10 MG/ML 1 ML VIAL IV ONE; -HYDROmorphone 0.5 MG/0.5 ML SYRINGE IVP PRN; +LIDOCAINE 1% 20 ML VIAL (10MG/ML) FOR IV START INTRADERMA PRN; -ONDANSETRON 4 MG/2 ML VIAL IVP ONE; -ceFAZolin IN SWFI 2 GM/20 ML SYRINGE IVP ONE
[2018-06-21] MEDS ORDERED: TRANEXAMIC ACID 1,000 MG in SODIUM CHLORIDE 0.9% 50 ML IVPB ONE (06:00)
[2018-06-21] MEDS ORDERED: ONDANSETRON 4 MG/2 ML VIAL IVP ONE (06:00)
[2018-06-21] MEDS ORDERED: HYDROmorphone 0.5 MG/0.5 ML SYRINGE IVP PRN ×4 (06:00→09:11)
[2018-06-21] MEDS ORDERED: SCOPOLAMINE 1.5MG/72HR PATCH TRANSDERM ONE (06:00)
[2018-06-21] MEDS ORDERED: ceFAZolin IN SWFI 2 GM/20 ML SYRINGE IVP ONE (06:00)
[2018-06-21] MEDS ORDERED: DEXAMETHASONE SOD PHOSPHATE 10 MG/ML 1 ML VIAL IV ONE (06:00)
[2018-06-21] MEDS ORDERED: MIDAZOLAM 2 MG/2 ML VIAL IV ONE (07:00)
[2018-06-21] MEDS ORDERED: SODIUM CHLORIDE 0.9% 100 ML BAG ONE (07:23)
[2018-06-21] MEDS ORDERED: TRANEXAMIC ACID 1,000 MG/10 ML VIAL ONE (07:23)
[2018-06-21] MEDS ORDERED: MIDAZOLAM 2 MG/2 ML VIAL ONE (07:23)
[2018-06-21] MEDS ORDERED: PROPOFOL 10 MG/ML 20 ML VIAL IV ONE (07:23)
[2018-06-21] MEDS ORDERED: ePHEDrine SULFATE/0.9% NACL/PF 50 MG/5 ML SYRINGE IV ONE (07:23)
[2018-06-21] MEDS ORDERED: ROPIVACAINE 246.25 MG, EPINEPHrine 0.5 MG, KETOROLAC 30 MG, cloNIDine HCL/PF 80 MCG, WA... MISCELLANE ONE ×5 (07:42)
[2018-06-21] MEDS ORDERED: ceFAZolin 3,000 MG in SODIUM CHLORIDE 0.9% IRRIGATIO 3,000 ML IRRIGATION ONE (07:59)
[2018-06-21] MEDS ORDERED: LACTATED RINGERS 1,000 ML IV ONE (08:52)
[2018-06-21] MEDS ORDERED: NALOXONE 0.4 MG/ML 1 ML VIAL IV PRN (09:11)
[2018-06-21] MEDS ORDERED: ONDANSETRON 4 MG/2 ML VIAL IVP PRN (09:11)
[2018-06-21] MEDS ORDERED: HYDROcodone/APAP 5-325MG 1 EACH TAB PO PRN (09:11)
--- NOTE | 2018-06-21 09:11 | P.OP ---
Date of Procedure: 06/21/18 Preoperative Diagnosis: Right knee osteoarthritis Postoperative Diagnosis: Right knee osteoarthritis Procedure(s) Performed: Right total knee arthroplasty Implants: 1. Danielle attune size 4 cruciate retaining cemented femur 2. [place] attune size 4 fixed bearing cemented tibial baseplate 3. Danielle attune size 4 fixed bearing cruciate retaining 5 mm polyethylene tibial insert 4. Danielle attune 35 mm all polyethylene cemented patella Anesthesia: regional (Adductor canal catheter), local, spinal Surgeon: Kolby Arzate Helper Metal Hanging #1: Gualberto Garcia Estimated Blood Loss (ml): 50 Pathology: other (Bone) Condition: stable Disposition: PACU Indications for Procedure: 77-year-old patient seen with symptomatic right knee osteoarthritis. After treatment options were discussed, she elected to proceed with total knee arthroplasty Operative Findings: See description of procedure Description of Procedure: Patient was taken to the operative suite after having an adductor canal catheter placed by the department of anesthesia. Patient underwent a spinal anesthetic by the department of anesthesia. Patient was given preoperative IV intake antibiotics and TXA. A well-padded tourniquet was placed about the right lower extremity. The lower extremity was then prepped and draped in the normal sterile orthopedic fashion. The extremity was elevated, a tourniquet was insufflated to 300. A standard anterior incision was made sharply through skin. Dissection was taken down through the subcutaneous soft tissues down to the extensor mechanism. A medial arthrotomy was performed, patella was everted and knee was flexed. There was advanced osteoarthritis noted. I introduced my distal intramedullary femoral drill. I then introduced the distal femoral cutting jig. Jose BRIDGES secured the cutting jig with 2 pins. I held retractors in position while Jose BRIDGES performed the distal femoral resection through the guide area we now removed her distal femoral cutting guide. We now placed our 4-in-1 femoral cutting block and positioned and it was secured with 2 pins by Jose BRIDGES while I held the block in position. The distal femoral finishing was now completed. A proximal tibial cutting guide was positioned. I held the guide in the appropriate position with both hands well Jose BRIDGES inserted stabilizing pins into the guide. Proximal tibial cut was made. We now placed a trial femoral component into position, along with an appropriate size tibial tray and insert. We now took the knee through range of motion and had full extension good flexion and good overall soft tissue balance noted. The patella was everted and stabilized with 2 towel clips held by Jose BRIDGES while I performed a flush with patellar quad tendon utilizing a fresh sawblade. We templated the patella, appropriate drill holes were made. An appropriate trial patella was positioned, knee was taken through full range of motion with the patella tracking very nicely. The trial patella was removed. Drill holes were made through the femoral component. All trial components were removed after marking off the appropriate rotation of the tibia. Retractors were now positioned along the proximal tibia. An appropriate keel punch was made with the appropriate size tibial guide by myself on Jose BRIDGES assisted by holding retractors. At this point appropriate size implants were chosen and opened. The joint was irrigated copiously with pulse lavage mechanical irrigation. The posterior capsule was infiltrated with local analgesic. The wound was irrigated with pulse lavage mechanical irrigation. We mixed antibiotic methylmethacrylate. We placed the knee into flexion. We placed multiple retractors assisted by Jose BRIDGES to expose the proximal tibia. Once the methyl methacrylate was ready, the tibial component was cemented into place removing any excess methylmethacrylate form by both myself and Jose BRIDGES. The femoral component was cemented into place removing the removing any excess methylmethacrylate performed by both myself and Jose BRIDGES. We then inserted the appropriate size polyethylene tibial insert. We made sure that it was locked into position. We took the knee into full extension, and then back in a flexion making sure we had removed any excess methylmethacrylate. The patellar component was then cemented down and secured with clamp. Excess methylmethacrylate removed. We kept the knee in full extension, patellar clamp in position until methylmethacrylate had hardened. Once it had hardened the patellar clamp was removed. The knee was taken through full range of motion. The patella tracked nicely. There was good soft tissue balancing. The tourniquet was now released. Additional hemostasis was achieved via electrocautery. A second gram of TXA was given. The wound again was irrigated with pulse lavage mechanical irrigation. The superficial soft tissues were infiltrated local analgesic. The extensor mechanism was repaired with Vicryl. We checked the repair with range of motion and it was stable. The subcutaneous soft tissues were repaired with Vicryl in layers. The skin was approximated with pernio/Dermabond. Sterile dressings were applied followed by loose web roll and Eliazar bandage. The patient was transferred to a bed, and taken to recovery in stable and satisfactory condition. Jose BRIDGES assisted with this complex procedure.
[2018-06-21] MEDS ORDERED: ROPIVACAINE 1,100 MG, SODIUM CHLORIDE 0.9% 500 ML 330 ML MISCELLANE PRN ×2 (09:16)
--- NOTE | 2018-06-21 09:18 | P.ONQ ---
Anesthesiology Proc Note - PNB - Peripheral Nerve Block Performed Right Adductor Canal Infusion Time Out Performed: Yes Procedure Start Time: 07:01 Procedure Stop Time: 07:10 Indication: Acute Post-Operative Pain, Requested by physician Sedation Type: Sedate with meaningful contact maintained Preparation: Sterile Dressing Position: Supine Catheter: Indwelling Needle Types: On-Q Needle Size: 100mm (4") Needle Gauge: 21 Technique: Ultrasound Injectate: 0.5% Ropivacaine (see comment for volume) (ropi .5% 20cc) Blood Aspirated: No Pain Paresthesia on Injection Noted: No Resistance on Injection: Normal Events: Uneventful and Well Tolerated
--- NOTE | 2018-06-21 09:45 | XR ---
EXAMINATION TYPE: XR knee limited RT DATE OF EXAM: 06/21/2018 COMPARISON: NONE TECHNIQUE: Two views submitted HISTORY: Post op FINDINGS: There is a prosthetic knee in near anatomic alignment. There is soft tissue edema and emphysema. IMPRESSION: 1. Postoperative change. Appears in near-anatomic alignment
[2018-06-21] MEDS: SODIUM CHLORIDE 0.9% 1,000 ML IV SCH (13:39)
[2018-06-21] MEDS: ceFAZolin IN SWFI 2 GM/20 ML SYRINGE IVP SCH (17:39)
[2018-06-21] MEDS: SENNOSIDES-DOCUSATE SODIUM 1 EACH TAB PO SCH (19:39)
--- NOTE | 2018-06-21 22:59 | P.CONS ---
History of Present Illness - Reason for Consult Consult date: 06/21/18 Medical management - Chief Complaint Total knee arthroplasty - History of Present Illness This is a consultation on a 77-year-old white female with history of knee DJD. Recent hip arthroplasty was done and she is now here to repair the right knee. No significant issues postoperatively. She is Seen immediately on the postoperative evening. She seems to be tolerant diet with nominal pain control. No fever or chills stated. No significant nausea, vomiting or diarrhea. She seems to be hemodynamically stable. Review of Systems Constitutional: Denies chills, Denies fever Eyes: denies blurred vision, denies pain Ears, nose, mouth and throat: Denies headache, Denies sore throat Respiratory: Denies cough Gastrointestinal: Denies abdominal pain, Denies diarrhea, Denies nausea, Denies vomiting Musculoskeletal: Denies myalgias Past Medical History Past Medical History: Eye Disorder, GERD/Reflux, Hyperlipidemia, Hypertension, Osteoarthritis (OA) Additional Past Medical History / Comment(s): Macular degeneration. OLD Hx migraines, VERTIGO, Diverticulits. Varicose Veins. SOB on Exertion. PAST Hx hiatal hernia. "leaky bladder". [facility]. History of Any Multi-Drug Resistant Organisms: None Reported Past Surgical History: Appendectomy, Bowel Resection, Hernia Repair, Hysterectomy, Joint Replacement, Orthopedic Surgery Additional Past Surgical History / Comment(s): hardeep cataracts, rt knee arthroscopy, Babak Fundoplasty. TOTAL RT HIP 02/22/18, total right knee arthroplasty 06/21/2018 Past Anesthesia/Blood Transfusion Reactions: No Reported Reaction Past Psychological History: Anxiety Additional Psychological History / Comment(s): MINOR ANXIETY HX IN PAST. Smoking Status: Former smoker Past Alcohol Use History: Occasional Additional Past Alcohol Use History / Comment(s): quit smoking 2007, smoked 40 years, 1 pkg a day Past Drug Use History: None Reported - Past Family History Father Family Medical History: Cancer Additional Family Medical History / Comment(s): LEUKEMIA Mother Family Medical History: Deep Vein Thrombosis (DVT) Brother(s) Family Medical History: Cancer Additional Family Medical History / Comment(s): 3 BROTHERS HAD CANCER Son(s) Family Medical History: Deep Vein Thrombosis (DVT) Medications and Allergies Home Medications Medication Instructions Recorded Confirmed Type Meclizine [Antivert] 25 mg PO TID PRN 11/14/16 06/21/18 History Simvastatin [Zocor] 10 mg PO HS 11/14/16 06/21/18 History Torsemide 10 mg PO DAILY 11/14/16 06/21/18 History Vits A,C,E/Lutein/Minerals 1 tab PO DAILY 11/14/16 06/21/18 History [Ocuvite with Lutein Tablet] Calcium Carbonate/Vitamin D3 1 tab PO DAILY 01/13/17 06/21/18 History [Calcium 600-Vit D3 400 Tablet] Acetaminophen Tab [Tylenol] 650 mg PO Q6HR PRN 02/12/18 06/21/18 History Pantoprazole Sodium [Protonix] 40 mg PO BID 02/12/18 06/21/18 History clonazePAM [Clonazepam] 0.5 mg PO BID PRN 02/12/18 06/21/18 History Aspirin [Adult Low Dose Aspirin EC] 81 mg PO DAILY 06/14/18 06/21/18 History Allergies Allergy/AdvReac Type Severity Reaction Status Date / Time Penicillins Allergy Severe Diarrhea Verified 06/21/18 17:44 terbinafine [From Lamisil] Allergy Severe Diarrhea Verified 06/21/18 17:44 adhesive tape Allergy Itching Verified 06/21/18 17:44 Physical Exam Vitals: Vital Signs Temp Pulse Pulse Pulse Resp BP BP 06/21/18 20:09 97.3 F L 83 16 155/67 06/21/18 14:11 97.6 F 82 16 144/40 06/21/18 12:05 85 136/65 06/21/18 11:51 85 133/65 06/21/18 11:35 90 144/70 06/21/18 11:21 84 150/62 06/21/18 11:06 84 145/64 06/21/18 10:50 84 156/68 06/21/18 10:35 84 153/62 06/21/18 10:20 79 162/67 06/21/18 10:05 82 151/68 06/21/18 09:57 78 16 158/70 06/21/18 09:42 80 16 164/70 06/21/18 09:27 78 16 159/72 06/21/18 09:16 98.1 F 77 22 179/69 06/21/18 06:27 98.1 F 77 16 183/79 Pulse Ox 06/21/18 20:09 92 L 06/21/18 14:11 94 L 06/21/18 12:05 95 06/21/18 11:51 94 L 06/21/18 11:35 97 06/21/18 11:21 95 06/21/18 11:06 96 06/21/18 10:50 92 L 06/21/18 10:35 93 L 06/21/18 10:20 93 L 06/21/18 10:05 92 L 06/21/18 09:57 95 06/21/18 09:42 94 L 06/21/18 09:27 95 06/21/18 09:16 96 06/21/18 06:27 98 Intake and Output 06/21/18 06/21/18 06/21/18 06:59 14:59 22:59 Intake Total 200 1051 740 Output Total 50 Balance 200 1001 740 Intake: IV 200 1051 Oral 740 Output: Estimated Blood Loss 50 Other: Voiding Method Toilet # Voids 1 2 Weight 79.379 kg - Constitutional General appearance: no acute distress - EENT Eyes: EOMI - Neck Neck: no lymphadenopathy - Respiratory Respiratory: bilateral: CTA - Cardiovascular Rhythm: regular Heart sounds: normal: S1, S2 Abnormal Heart Sounds: no S3 Gallop - Gastrointestinal General gastrointestinal: soft, no tenderness - Neurologic Neurologic: CNII-XII intact - Psychiatric Psychiatric: A&O x's 3, appropriate affect, intact judgment & insight Assessment and Plan (1) Primary osteoarthritis of right knee Current Visit: Yes Status: Acute Code(s): M17.11 - UNILATERAL PRIMARY OSTEOARTHRITIS, RIGHT KNEE SNOMED Code(s): 282825074589980 (2) Aortic stenosis Current Visit: No Status: Acute Code(s): I35.0 - NONRHEUMATIC AORTIC (VALVE ) STENOSIS SNOMED Code(s): 84877947 (3) Hyperlipidemia Current Visit: No Status: Acute Code(s): E78.5 - HYPERLIPIDEMIA, UNSPECIFIED SNOMED Code(s): 00697246 (4) Osteoarthritis of right hip Current Visit: No Status: Acute Code(s): M16.11 - UNILATERAL PRIMARY OSTEOARTHRITIS, RIGHT HIP SNOMED Code(s): 109894831897081 (5) Status post total hip replacement, right Current Visit: No Status: Acute Code(s): Z96.641 - PRESENCE OF RIGHT ARTIFICIAL HIP JOINT SNOMED Code(s): 643933318325 Plan: Continue appropriate postop protocol. Pulmonary toilet with DVT prophylaxis as necessary. Reconcile medications. Check CBC and CMP in a.m. We thank you very much for the consultation and will follow from a medical management perspective.
[2018-06-21] MEDS: HYDROcodone/APAP 5-325MG 1 EACH TAB PO PRN (23:53)
[2018-06-21] MEDS: ENOXAPARIN 30 MG/0.3 ML SYRINGE SQ SCH (23:53)
[2018-06-22] MEDS: ceFAZolin IN SWFI 2 GM/20 ML SYRINGE IVP SCH (00:16)
[2018-06-22] MEDS: HYDROcodone/APAP 5-325MG 1 EACH TAB PO PRN ×3 (05:20→22:18)
[2018-06-22 08:25] LABS: ALT 30 U/L (9-52); AST 30 U/L (14-36); Alkaline Phosphatase 127 U/L (38-126); Anion Gap 1 mmol/L; Blood Urea Nitrogen 13 mg/dL (7-17); Calcium 9.2 mg/dL (8.4-10.2); Carbon Dioxide 28 mmol/L (22-30); Chloride 111 mmol/L (98-107); Glucose 90 mg/dL (74-99); Potassium 4.1 mmol/L (3.5-5.1); Sodium 140 mmol/L (137-145); Total Bilirubin 0.4 mg/dL (0.2-1.3); Total Protein 5.5 g/dL (6.3-8.2)
[2018-06-22 08:26] LABS: Basophils % (A) 0 %; Eosinophils % (A) 1 %; HCT 30.1 % (34.0-46.0); Hypochromasia Moderate; Lymphocytes # (A) 2.3 k/uL (1.0-4.8); Lymphocytes % (A) 32 %; MCH 25.2 pg (25.0-35.0); MCHC 31.1 g/dL (31.0-37.0); Mean Platelet Volume 6.4; Monocytes # (A) 0.4 k/uL (0-1.0); Monocytes % (A) 6 %; Neutrophils # (A) 4.3 k/uL (1.3-7.7); Neutrophils % (A) 60 %; Platelet Count 192 k/uL (150-450); RBC 3.72 m/uL (3.80-5.40); RDW 15.9 % (11.5-15.5); WBC 7.2 k/uL (3.8-10.6)
[2018-06-22 08:34] LABS: HGB 9.4 gm/dL (11.4-16.0)
[2018-06-22] MEDS: MELOXICAM 7.5 MG TAB PO SCH (10:08)
[2018-06-22] MEDS: ENOXAPARIN 30 MG/0.3 ML SYRINGE SQ SCH ×2 (10:08→20:42)
--- NOTE | 2018-06-22 11:26 | P.PN ---
Progress Note - Text Anesthesia POD 1. Patient is status post right TKR under spinal anesthesia with a right adductor canal catheter placed for postoperative pain relief. With ropivacaine 0.2% running at 8 cc's per hour, the patient's VAS is (2, 4). Catheter site is clean dry and intact.
[2018-06-22] MEDS: MULTIVITAMINS, THERA 1 EACH TAB PO SCH (12:48)
[2018-06-22] MEDS: SODIUM CHLORIDE 0.9% 1,000 ML IV SCH (12:50)
[2018-06-22] MEDS ORDERED: clonazePAM 0.5 MG TAB PO PRN (13:24)
[2018-06-22] MEDS ORDERED: MECLIZINE 25 MG TAB PO PRN (13:24)
[2018-06-22] MEDS: TORSEMIDE 20 MG TAB PO SCH (15:35)
[2018-06-22] MEDS: traMADol 50 MG TAB PO SCH ×3 (15:36→20:42)
[2018-06-22] MEDS: VIT A,C & E-LUTEIN-MINERALS 1 EACH TAB PO SCH ×2 (16:30→16:41)
[2018-06-22] MEDS: PANTOPRAZOLE 40 MG TABLET PO SCH (16:41)
[2018-06-22 19:53] VITALS: TEMP 98.2
[2018-06-22] MEDS: SENNOSIDES-DOCUSATE SODIUM 1 EACH TAB PO SCH (20:41)
[2018-06-22] MEDS ORDERED: ATORVASTATIN 10 MG TAB PO SCH (21:00)
[2018-06-23] MEDS: SODIUM CHLORIDE 0.9% 1,000 ML IV SCH (04:08)
--- NOTE | 2018-06-23 07:32 | P.PN ---
Subjective Progress Note Date: 06/22/18 Principal diagnosis: This is a continue progress on a 77-year-old white female who recently had right knee arthroplasty. The patient is wanting her home medications completely reconciled. Otherwise no new complaints. No voiding difficulties. Nonausea,vomitingordiarrhea. The patient does not describe any voiding difficulties. Pain is fairly well controlled. Objective - Vital Signs Vital signs: Vital Signs Temp 98.2 F 06/22/18 19:24 Pulse 83 06/22/18 19:24 Resp 14 06/22/18 19:24 BP 171/72 06/22/18 19:24 Pulse Ox 96 06/22/18 19:24 Intake & Output 06/22/18 06/23/18 06/23/18 18:59 06:59 18:59 Other: # Voids 1 1 - Constitutional General appearance: Present: average body habitus - EENT Eyes: Absent: abnormal pupil - Neck Neck: Absent: lymphadenopathy - Respiratory Respiratory: bilateral: CTA - Cardiovascular Rhythm: regular Heart sounds: normal: S1, S2 Abnormal Heart Sounds: Absent: S3 Gallop - Gastrointestinal General gastrointestinal: Present: soft. Absent: tenderness - Integumentary Integumentary Comment(s): No cord felt in the lower extremity Integumentary: Present: normal - Labs CBC & Chem 7: 06/22/18 07:15 06/22/18 07:15 Labs: Abnormal Lab Results - Last 24 Hours (Table) 06/22/18 06/22/18 Range/Units 07:15 07:15 RBC 3.72 L (3.80-5.40) m/uL Hgb 9.4 L D (11.4-16.0) gm/dL Hct 30.1 L (34.0-46.0) % RDW 15.9 H (11.5-15.5) % Chloride 111 H (98-107) mmol/L Alkaline Phosphatase 127 H (38-126) U/L Total Protein 5.5 L (6.3-8.2) g/dL Albumin 3.0 L (3.5-5.0) g/dL Assessment and Plan (1) Primary osteoarthritis of right knee Current Visit: Yes Status: Acute Code(s): M17.11 - UNILATERAL PRIMARY OSTEOARTHRITIS, RIGHT KNEE SNOMED Code(s): 872277143805989 (2) Aortic stenosis Current Visit: No Status: Acute Code(s): I35.0 - NONRHEUMATIC AORTIC (VALVE ) STENOSIS SNOMED Code(s): 09192096 (3) Hyperlipidemia Current Visit: No Status: Acute Code(s): E78.5 - HYPERLIPIDEMIA, UNSPECIFIED SNOMED Code(s): 32947281 (4) Osteoarthritis of right hip Current Visit: No Status: Acute Code(s): M16.11 - UNILATERAL PRIMARY OSTEOARTHRITIS, RIGHT HIP SNOMED Code(s): 399753930351353 (5) Status post total hip replacement, right Current Visit: No Status: Acute Code(s): Z96.641 - PRESENCE OF RIGHT ARTIFICIAL HIP JOINT SNOMED Code(s): 431279281717 Plan: Continue appropriate postop protocol. Pulmonary toilet with DVT prophylaxis as necessary. Reconcile medications. Check CBC and CMP in a.m. We thank you very much for the consultation and will follow from a medical management perspective.
--- NOTE | 2018-06-23 07:38 | P.PN ---
Subjective Progress Note Date: 06/23/18 Principal diagnosis: This is a continue progress on a 77-year-old white female who recently had right knee arthroplasty. The patient is wanting her home medications completely reconciled. Otherwise no new complaints. No voiding difficulties. Nonausea,vomitingordiarrhea. The patient does not describe any voiding difficulties. Pain is fairly well controlled. Otherwise, anticipate discharge when cleared by orthopedics later today. Objective - Vital Signs Vital signs: Vital Signs Temp 98.2 F 06/22/18 19:24 Pulse 83 06/22/18 19:24 Resp 14 06/22/18 19:24 BP 171/72 06/22/18 19:24 Pulse Ox 96 06/22/18 19:24 Intake & Output 06/22/18 06/23/18 06/23/18 18:59 06:59 18:59 Other: # Voids 1 1 - Constitutional General appearance: Present: average body habitus - EENT Eyes: Absent: abnormal pupil - Neck Neck: Absent: lymphadenopathy - Respiratory Respiratory: bilateral: CTA - Cardiovascular Rhythm: regular Heart sounds: normal: S1, S2 Abnormal Heart Sounds: Absent: S3 Gallop - Gastrointestinal General gastrointestinal: Present: soft. Absent: tenderness - Psychiatric Psychiatric: Present: A&O x's 3, appropriate affect - Labs CBC & Chem 7: 06/22/18 07:15 06/22/18 07:15 Labs: Abnormal Lab Results - Last 24 Hours (Table) 06/22/18 06/22/18 Range/Units 07:15 07:15 RBC 3.72 L (3.80-5.40) m/uL Hgb 9.4 L D (11.4-16.0) gm/dL Hct 30.1 L (34.0-46.0) % RDW 15.9 H (11.5-15.5) % Chloride 111 H (98-107) mmol/L Alkaline Phosphatase 127 H (38-126) U/L Total Protein 5.5 L (6.3-8.2) g/dL Albumin 3.0 L (3.5-5.0) g/dL Assessment and Plan (1) Primary osteoarthritis of right knee Current Visit: Yes Status: Acute Code(s): M17.11 - UNILATERAL PRIMARY OSTEOARTHRITIS, RIGHT KNEE SNOMED Code(s): 787788524642545 (2) Aortic stenosis Current Visit: No Status: Acute Code(s): I35.0 - NONRHEUMATIC AORTIC (VALVE ) STENOSIS SNOMED Code(s): 59762857 (3) Hyperlipidemia Current Visit: No Status: Acute Code(s): E78.5 - HYPERLIPIDEMIA, UNSPECIFIED SNOMED Code(s): 35739552 (4) Osteoarthritis of right hip Current Visit: No Status: Acute Code(s): M16.11 - UNILATERAL PRIMARY OSTEOARTHRITIS, RIGHT HIP SNOMED Code(s): 577586864774636 (5) Status post total hip replacement, right Current Visit: No Status: Acute Code(s): Z96.641 - PRESENCE OF RIGHT ARTIFICIAL HIP JOINT SNOMED Code(s): 052053090164 Plan: Anticipate discharge later today. Reconcile medications. Follow-up in about a week once discharged. Time with Patient: Less than 30
[2018-06-23 08:10] VITALS: BP 164/71; PULSE 78; RESP 16
[2018-06-23] MEDS: VIT A,C & E-LUTEIN-MINERALS 1 EACH TAB PO SCH (08:39)
[2018-06-23] MEDS: MULTIVITAMINS, THERA 1 EACH TAB PO SCH (08:39)
[2018-06-23] MEDS: TORSEMIDE 20 MG TAB PO SCH (08:39)
[2018-06-23] MEDS: MELOXICAM 7.5 MG TAB PO SCH (08:39)
[2018-06-23] MEDS: ENOXAPARIN 30 MG/0.3 ML SYRINGE SQ SCH (08:40)
[2018-06-23] MEDS: traMADol 50 MG TAB PO SCH (08:40)
[2018-06-23] MEDS: PANTOPRAZOLE 40 MG TABLET PO SCH (08:40)
--- NOTE | 2018-06-23 10:48 | P.PN ---
Subjective Progress Note Date: 06/23/18 Principal diagnosis: Status post right total knee arthroplasty Patient evaluated today at bedside, she is resting comfortably. Her pain is better controlled today. She's ambulated well with therapy. She denies any chest pain or shortness of breath. Objective - Vital Signs Vital signs: Vital Signs Temp 98.2 F 06/23/18 07:48 Pulse 78 06/23/18 07:48 Resp 16 06/23/18 07:48 BP 164/71 06/23/18 07:48 Pulse Ox 94 L 06/23/18 07:48 Intake & Output 06/22/18 06/23/18 06/23/18 18:59 06:59 18:59 Other: # Voids 1 1 - Exam Right lower extremity: Incision is clean, dry, and intact. The exofin fusion tape is in good condition. There is minimal soft tissue swelling and ecchymosis surrounding the medial and lateral aspects of the incision. Calf is soft, no tenderness with palpation. Plantar flexion, dorsiflexion, EHL, FHL are intact. Sensory exam to light touch throughout the extremity is intact, dorsal pedis pulses 2+. - Labs CBC & Chem 7: 06/22/18 07:15 06/22/18 07:15 Assessment and Plan Plan: Assessment: Postoperative day #2 status post right total knee arthroplasty Plan: Pain control discharge on oral medication GI and DVT prophylaxis, 81 mg aspirin twice a day Wound care instructions were discussed Medical recommendations Home therapy and nursing after discharge Discharge planning: Plan for discharge home today Time with Patient: Less than 30
--- NOTE | 2018-06-23 10:52 | P.DS ---
Providers Date of admission: 06/21/18 05:31 Expected date of discharge: 06/23/18 Attending physician: Kolby Arzate Consults: 06/21/18 09:11 Consult Physician Routine Consulting Provider: Kareem Cunningham Consult Reason/Comments: Medical management Do you want consulting provider notified?: Yes Primary care physician: Kareem Cunningham Hospital Course: Date of admission: 06/21/2018 Date of discharge: 06/23/2018 Admission diagnosis: Status post right total knee arthroplasty Discharge diagnosis: Same Attending physician: Dr. 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 At this point patient has failed conservative treatment measures and has opted to proceed with a elective right total knee arthroplasty. Hospital course: Details of patient's surgery can be found in operative report. Patient tolerated the procedure well and was subsequently transported to orthopedic floor. Patient's orthopeidc and medical care was provided daily. Patient had daily laboratory tests performed for evaluation of overall blood counts. Patient had daily physical therapy to include strengthening range of motion as well as education with walker ambulation. Patient had daily CPM usage as part of their physical therapy program. Patient was treated with Lovenox for their postoperative DVT prophylaxis during their inpatient stay. Patient was noted to have a relatively uneventful postoperative course. Patient reported satisfactory pain control with oral pain medications by postoperative day 0. Patient showed satisfactory progress with physical therapy. Patient moved steadily through the program and had no difficulty meeting the goals by postoperative day 2. Given patient's otherwise satisfactory course and having met physical therapy goals, plan is to discharge patient home on postoperative day 2. Discharge condition/disposition: Patient will be discharged home in stable condition. Discharge medications: Instructions are given on resumption of patient's normal daily medications per primary care recommendation, in addition patient will be prescribed Spencer 5 mg/25 mg, Tramadol 50mg, Colace 100 mg, aspirin 81 mg. Discharge instructions: 1. Wound care and infection precautions, keep incision dry and covered while showering, no lotions, creams, moisturizers. No soaking, tubs, pools, hottubs. Do not scrub over the incision. 2. Weight-bear as tolerated with walker / cane until follow-up. 3. Ice and elevate when necessary. Do not exceed 20 minutes per hour with ice pack. 4. Utilize compression sleeve until seen at first follow up appointment. 5. Visiting nursing care. 6. Home physical therapy including home CPM. 7. Pain meds and anticoagulants per prescription. 8. Pain medication has potential to cause constipation. Increase oral fluid and fiber intake. Contact primary care provider if you have not had a bowel movement within 48 hours after discharge 9. No anti-inflammatory medication until discussed at first post operative visit, this including Motrin, Aleve, Mobic, Diclofenac 10. Follow up in office at 2 weeks postop with Jose Garcia PA-C 11. Follow up with your primary care doctor 7-10 days after discharge. 12. Contact [facility] with any questions, . Procedures: Right total knee arthroplasty Patient Condition at Discharge: Good Plan - Discharge Summary Discharge Rx Participant: No New Discharge Prescriptions: New Zolpidem Tartrate [Ambien] 5 mg PO HS PRN 3 Days #30 tab PRN Reason: Insomnia Aspirin [Adult Low Dose Aspirin EC] 81 mg PO BID #60 tablet. Docusate [Colace] 100 mg PO DAILY #30 capsule Hydrocodone/Acetaminophen [Spencer 5-325] 1 each PO Q6HR PRN #28 tab PRN Reason: Pain traMADol HCl [Ultram] 50 mg PO Q6H PRN #28 tab PRN Reason: Pain No Action Vits A,C,E/Lutein/Minerals [Ocuvite with Lutein Tablet] 1 tab PO DAILY Torsemide 10 mg PO DAILY Simvastatin [Zocor] 10 mg PO HS Meclizine [Antivert] 25 mg PO TID PRN PRN Reason: Vertigo Calcium Carbonate/Vitamin D3 [Calcium 600-Vit D3 400 Tablet] 1 tab PO DAILY clonazePAM [Clonazepam] 0.5 mg PO BID PRN PRN Reason: Anxiety Pantoprazole Sodium [Protonix] 40 mg PO BID Acetaminophen Tab [Tylenol] 650 mg PO Q6HR PRN PRN Reason: Pain Discharge Medication List Meclizine [Antivert] 25 mg PO TID PRN 11/14/16 [History] Simvastatin [Zocor] 10 mg PO HS 11/14/16 [History] Torsemide 10 mg PO DAILY 11/14/16 [History] Vits A,C,E/Lutein/Minerals [Ocuvite with Lutein Tablet] 1 tab PO DAILY 11/14/16 [History] Calcium Carbonate/Vitamin D3 [Calcium 600-Vit D3 400 Tablet] 1 tab PO DAILY 01/22 [History] Acetaminophen Tab [Tylenol] 650 mg PO Q6HR PRN 02/12/18 [History] Pantoprazole Sodium [Protonix] 40 mg PO BID 02/12/18 [History] clonazePAM [Clonazepam] 0.5 mg PO BID PRN 02/12/18 [History] Aspirin [Adult Low Dose Aspirin EC] 81 mg PO BID #60 tablet.dr 06/23/18 [Rx] Docusate [Colace] 100 mg PO DAILY #30 capsule 06/23/18 [Rx] Hydrocodone/Acetaminophen [Spencer 5-325] 1 each PO Q6HR PRN #28 tab 06/23/18 [Rx] Zolpidem Tartrate [Ambien] 5 mg PO HS PRN 3 Days #30 tab 06/23/18 [Rx] traMADol HCl [Ultram] 50 mg PO Q6H PRN #28 tab 06/23/18 [Rx] Follow up Appointment(s)/Referral(s): Kareem Cunningham MD [Primary Care Provider] - 1 Week [facility], [NON-STAFF] - Gualberto Garcia PAC [[employer]] - 07/07/18 1:50 pm Activity/Diet/Wound Care/Special Instructions: Orthopedic Discharge Instructions: 1. Wound care and infection precautions, keep incision dry and covered while showering, no lotions, creams, moisturizers. No soaking, pools, hot tubs. Do not scrub over incision. 2. Weight-bear as tolerated with walker / cane until follow-up. 3. Ice and elevate when necessary. Do not exceed 20 minutes per hour with ice pack. 4. Utilize compression sleeve until seen at first follow up appointment. 5. Pain meds and anticoagulants per prescription. 6. Pain medication has potential to cause constipation. Increase oral fluid and fiber intake. Contact primary care provider if you have not had a bowel movement within 48 hours after discharge. 7. No anti-inflammatory medication until discussed at first post operative visit, this including Motrin, Aleve, Mobic, Diclofenac. 8. Follow up in office at 2 weeks postop with Jose Garcia PA-C 9. Follow up with your primary care doctor 7-10 days after discharge. 10. Contact [facility] with any questions, . Discharge Disposition: HOME WITH HOME HEALTH SERVICES
[2018-06-23] MEDS ORDERED: CALCIUM CARB-VIT D 500MG-200UN 1 EACH TAB PO SCH (12:00)
== END 2018-06-23 13:01 | disposition home health service (06) | DRG 470 ==
LOC: 2ORMAIN 05:31 → 4SSUR 09:09
PROVIDERS: ADMIT Orthopaedic Surgery; ATTEND Orthopaedic Surgery
PROC: 0SRC0J9 Replacement of Right Knee Joint with Synthetic Substitute, Cemented, Open Approach (ICD-10-PCS; principal; 2018-06-23)
DX: M17.11 Unilateral primary osteoarthritis, right knee (principal); I35.0 Nonrheumatic aortic (valve) stenosis; E78.5 Hyperlipidemia, unspecified; H35.30 Unspecified macular degeneration; I10 Essential (primary) hypertension; K21.9 Gastro-esophageal reflux disease without esophagitis; F41.9 Anxiety disorder, unspecified; I83.90 Asymptomatic varicose veins of unspecified lower extremity; K57.90 Diverticulosis of intestine, part unspecified, without perforation or abscess without bleeding; Z79.82 Long term (current) use of aspirin; Z79.899 Other long term (current) drug therapy; Z96.641 Presence of right artificial hip joint; Z90.710 Acquired absence of both cervix and uterus; Z87.891 Personal history of nicotine dependence; Z98.42 Cataract extraction status, left eye; Z98.41 Cataract extraction status, right eye; Z96.1 Presence of intraocular lens; Z90.49 Acquired absence of other specified parts of digestive tract; Z80.6 Family history of leukemia; Z82.49 Family history of ischemic heart disease and other diseases of the circulatory system
CPT/HCPCS: 80053; 85025; 88300

== ENCOUNTER 2019-02-09 09:05 | Emergency (ER) | payer MEDICARE, BC ==
[2019-02-09 09:15] VITALS: TEMP 97.9
[2019-02-09] MEDS ORDERED: hydrALAZINE HCL 20 MG/ML 1 ML VIAL IVP STA (09:58)
--- NOTE | 2019-02-09 10:27 | ED ---
General Adult HPI - General Chief complaint: Recheck/Abnormal Lab/Rx Stated complaint: elevated BP Time Seen by Provider: 02/09/19 09:15 Source: patient, RN notes reviewed Mode of arrival: wheelchair Limitations: no limitations - History of Present Illness Initial comments: This is a 78-year-old female presents emergency Department with a past history o f high blood pressure for which she has not taken any medicine in years since she quit working. Patient states over the last 2 days she has been taking her blood pressure and noted it be high. Patient states she tried into a primary medical care doctor's office but couldn't so they sent to the emergency department. Patient denies any symptoms. Patient denies headache patient denies numbness weakness. Patient denies chest pain palpitations difficulty breathing shortness of breath per patient denies any fever. She denies any recent cough. Patient denies abdominal pain patient denies nausea vomiting diarrhea. Patient denies any lightheadedness dizziness or near syncopal episode. - Related Data Home Medications Medication Instructions Recorded Confirmed Meclizine [Antivert] 25 mg PO TID PRN 11/14/16 02/09/19 Simvastatin [Zocor] 10 mg PO HS 11/14/16 02/09/19 Torsemide 10 mg PO DAILY 11/14/16 02/09/19 Vits A,C,E/Lutein/Minerals 1 tab PO DAILY 11/14/16 02/09/19 [Ocuvite with Lutein Tablet] Calcium Carbonate/Vitamin D3 1 tab PO DAILY 01/13/17 02/09/19 [Calcium 600-Vit D3 400 Tablet] Pantoprazole Sodium [Protonix] 40 mg PO BID 02/12/18 02/09/19 clonazePAM [Clonazepam] 0.5 mg PO BID PRN 02/12/18 02/09/19 Aspirin [Adult Low Dose Aspirin EC] 81 mg PO HS 02/09/19 02/09/19 Ferrous Sulfate [Feosol] 325 mg PO DAILY 02/09/19 02/09/19 Previous Rx's Medication Instructions Recorded amLODIPine [Norvasc] 5 mg PO DAILY #10 tab 02/09/19 Allergies Allergy/AdvReac Type Severity Reaction Status Date / Time Penicillins Allergy Severe Diarrhea Verified 02/09/19 09:29 terbinafine [From Lamisil] Allergy Severe Diarrhea Verified 02/09/19 09:29 adhesive tape Allergy Itching Verified 02/09/19 09:29 Review of Systems ROS Statement: Those systems with pertinent positive or pertinent negative responses have been documented in the HPI. ROS Other: All systems not noted in ROS Statement are negative. Past Medical History Past Medical History: Eye Disorder, GERD/Reflux, Hyperlipidemia, Osteoarthritis (OA) Additional Past Medical History / Comment(s): macular degeneration, hx migraines, diverticulits, varicose veins, SOB on exertion, hx hiatal hernia, "leaky bladder" History of Any Multi-Drug Resistant Organisms: None Reported Past Surgical History: Appendectomy, Bowel Resection, Hernia Repair, Hysterectomy, Orthopedic Surgery Additional Past Surgical History / Comment(s): hardeep cataracts, rt knee arthroscopy, Babak Fundoplasty. TOTAL RT HIP 02/22/18, total right knee arthroplasty 06/21/2018 Past Anesthesia/Blood Transfusion Reactions: No Reported Reaction Past Psychological History: No Psychological Hx Reported Smoking Status: Former smoker Past Alcohol Use History: Occasional Past Drug Use History: None Reported - Past Family History Father Family Medical History: Cancer Additional Family Medical History / Comment(s): LEUKEMIA Mother Family Medical History: Deep Vein Thrombosis (DVT) Brother(s) Family Medical History: Cancer Additional Family Medical History / Comment(s): 3 BROTHERS HAD CANCER Son(s) Family Medical History: Deep Vein Thrombosis (DVT) General Exam - General Exam Comments Initial Comments: GENERAL: Patient is well-developed and well-nourished. Patient is nontoxic and well- hydrated and is in no acute distress. ENT: Neck is soft and supple. No significant lymphadenopathy is noted. Oropharynx is clear. Moist mucous membranes. Neck has full range of motion without eliciting any pain. EYES: The sclera were anicteric and conjunctiva were pink and moist. Extraocular movements were intact and pupils were equal round and reactive to light. Eyelids were unremarkable. PULMONARY: Unlabored respirations. Good breath sounds bilaterally. No audible rales rhonchi or wheezing was noted. CARDIOVASCULAR: There is a regular rate and rhythm without any murmurs gallops or rubs. ABDOMEN: Soft and nontender with normal bowel sounds. SKIN: Skin is clear with no lesions or rashes and otherwise unremarkable. NEUROLOGIC: Patient is alert and oriented x3. Cranial nerves II through XII are grossly intact. Motor and sensory are also intact. Normal speech, volume and content. Symmetrical smile. MUSCULOSKELETAL: Normal extremities with adequate strength and full range of motion. LYMPHATICS: No significant lymphadenopathy is noted PSYCHIATRIC: Normal psychiatric evaluation. Limitations: no limitations Course Vital Signs 02/09/19 02/09/19 02/09/19 09:11 09:34 10:43 Temperature 97.9 F Pulse Rate 80 78 78 Respiratory 18 16 15 Rate Blood Pressure 165/79 175/77 147/61 O2 Sat by Pulse 99 98 98 Oximetry Medical Decision Making - Medical Decision Making EKG shows normal sinus rhythm at 72 bpm [place] interval is 148 QRSs 100 QT interval 408 QTC is 446. Patient's EKG shows no ST segment elevation or depression or T wave abnormalities are noted. Patient received hydralazine in the emergency department blood pressure came down nicely. Patient was still asymptomatic. Spoke with Sayed he wanted the patient to start on Norvasc and follow-up with him. Patient was discharged Norvasc. Chest x-ray shows no acute abnormalities. - Lab Data Result diagrams: 02/09/19 10:09 02/09/19 10:09 Lab Results 02/09/19 02/09/19 02/09/19 Range/Units 10:09 10:09 10:09 WBC 6.4 (3.8-10.6) k/uL RBC 4.72 (3.80-5.40) m/uL Hgb 12.4 (11.4-16.0) gm/dL Hct 38.6 (34.0-46.0) % MCV 81.7 (80.0-100.0) fL MCH 26.2 (25.0-35.0) pg MCHC 32.0 (31.0-37.0) g/dL RDW 17.9 H (11.5-15.5) % Plt Count 228 (150-450) k/uL Neutrophils % 63 % Lymphocytes % 25 % Monocytes % 6 % Eosinophils % 4 % Basophils % 0 % Neutrophils # 4.1 (1.3-7.7) k/uL Lymphocytes # 1.6 (1.0-4.8) k/uL Monocytes # 0.4 (0-1.0) k/uL Eosinophils # 0.3 (0-0.7) k/uL Basophils # 0.0 (0-0.2) k/uL Anisocytosis Slight Microcytosis Slight PT 10.1 (9.0-12.0) sec INR 0.9 (<1.2) APTT 24.0 (22.0-30.0) sec Sodium 144 (137-145) mmol/L Potassium 3.9 (3.5-5.1) mmol/L Chloride 109 H (98-107) mmol/L Carbon Dioxide 29 (22-30) mmol/L Anion Gap 6 mmol/L BUN 23 H (7-17) mg/dL Creatinine 0.84 (0.52-1.04) mg/dL Est GFR (CKD-EPI)AfAm 78 (>60 ml/min/1.73 sqM) Est GFR (CKD-EPI)NonAf 68 (>60 ml/min/1.73 sqM) Glucose 104 H (74-99) mg/dL Calcium 10.0 (8.4-10.2) mg/dL Magnesium 2.2 (1.6-2.3) mg/dL Total Bilirubin 0.5 (0.2-1.3) mg/dL AST 34 (14-36) U/L ALT 26 (9-52) U/L Alkaline Phosphatase 189 H (38-126) U/L Troponin I (0.000-0.034) ng/mL Total Protein 6.7 (6.3-8.2) g/dL Albumin 3.8 (3.5-5.0) g/dL 02/09/19 Range/Units 10:09 WBC (3.8-10.6) k/uL RBC (3.80-5.40) m/uL Hgb (11.4-16.0) gm/dL Hct (34.0-46.0) % MCV (80.0-100.0) fL MCH (25.0-35.0) pg MCHC (31.0-37.0) g/dL RDW (11.5-15.5) % Plt Count (150-450) k/uL Neutrophils % % Lymphocytes % % Monocytes % % Eosinophils % % Basophils % % Neutrophils # (1.3-7.7) k/uL Lymphocytes # (1.0-4.8) k/uL Monocytes # (0-1.0) k/uL Eosinophils # (0-0.7) k/uL Basophils # (0-0.2) k/uL Anisocytosis Microcytosis PT (9.0-12.0) sec INR (<1.2) APTT (22.0-30.0) sec Sodium (137-145) mmol/L Potassium (3.5-5.1) mmol/L Chloride (98-107) mmol/L Carbon Dioxide (22-30) mmol/L Anion Gap mmol/L BUN (7-17) mg/dL Creatinine (0.52-1.04) mg/dL Est GFR (CKD-EPI)AfAm (>60 ml/min/1.73 sqM) Est GFR (CKD-EPI)NonAf (>60 ml/min/1.73 sqM) Glucose (74-99) mg/dL Calcium (8.4-10.2) mg/dL Magnesium (1.6-2.3) mg/dL Total Bilirubin (0.2-1.3) mg/dL AST (14-36) U/L ALT (9-52) U/L Alkaline Phosphatase (38-126) U/L Troponin I <0.012 (0.000-0.034) ng/mL Total Protein (6.3-8.2) g/dL Albumin (3.5-5.0) g/dL Disposition Clinical Impression: Hypertensive urgency Disposition: HOME SELF-CARE Condition: Good Instructions (If sedation given, give patient instructions): Hypertension (ED) Prescriptions: amLODIPine [Norvasc] 5 mg PO DAILY #10 tab Is patient prescribed a controlled substance at d/c from ED?: No Referrals: Kareem Cunningham MD [Primary Care Provider] - 1-2 days Time of Disposition: 11:33
[2019-02-09 10:29] LABS: Anisocytosis Slight; Basophils % (A) 0 %; Eosinophils # (A) 0.3 k/uL (0-0.7); Eosinophils % (A) 4 %; HCT 38.6 % (34.0-46.0); HGB 12.4 gm/dL (11.4-16.0); Lymphocytes # (A) 1.6 k/uL (1.0-4.8); Lymphocytes % (A) 25 %; MCH 26.2 pg (25.0-35.0); MCV 81.7 fL (80.0-100.0); Mean Platelet Volume 6.6; Microcytosis Slight; Monocytes # (A) 0.4 k/uL (0-1.0); Monocytes % (A) 6 %; Neutrophils # (A) 4.1 k/uL (1.3-7.7); Neutrophils % (A) 63 %; Platelet Count 228 k/uL (150-450); RBC 4.72 m/uL (3.80-5.40); RDW 17.9 % (11.5-15.5); WBC 6.4 k/uL (3.8-10.6)
--- NOTE | 2019-02-09 10:37 | XR ---
EXAMINATION TYPE: XR chest 2V DATE OF EXAM: 02/09/2019 COMPARISON: NONE HISTORY: Chest pain TECHNIQUE: Frontal and lateral views of the chest are obtained. FINDINGS: There is slight pulmonary hyperinflation and biapical lucency suggesting underlying COPD w ith flattening of the diaphragms on the lateral view. No focal consolidation, pleural effusion or pne umothorax. Cardiomediastinal silhouette is upper limits of normal. Mild diffuse osseous demineralizat ion is seen with minimal degenerative changes of the spine. IMPRESSION: No acute cardiopulmonary process.
[2019-02-09 10:39] LABS: Albumin 3.8 g/dL (3.5-5.0); INR 0.9 (<1.2); Magnesium 2.2 mg/dL (1.6-2.3); Potassium 3.9 mmol/L (3.5-5.1); Prothrombin Time 10.1 sec (9.0-12.0); Total Bilirubin 0.5 mg/dL (0.2-1.3); Total Protein 6.7 g/dL (6.3-8.2)
[2019-02-09 11:49] VITALS: BP 161/79; PULSE 80; RESP 16
== END 2019-02-09 11:49 | disposition home or self-care (01) ==
LOC: EC 09:05
DX: I16.0 Hypertensive urgency (principal); E78.5 Hyperlipidemia, unspecified; K21.9 Gastro-esophageal reflux disease without esophagitis; Z79.899 Other long term (current) drug therapy; Z79.82 Long term (current) use of aspirin; Z88.0 Allergy status to penicillin; Z91.048 Other nonmedicinal substance allergy status; Z88.8 Allergy status to other drugs, medicaments and biological substances; Z86.79 Personal history of other diseases of the circulatory system; Z87.891 Personal history of nicotine dependence
CPT/HCPCS: 36415; 93005; 80053; 83735; 84484; 85025; 85610; 85730; 71046; 99284; 96374; J0360

== ENCOUNTER 2022-11-21 18:33 | Inpatient (IN) | payer MEDICARE, BC ==
[2022-11-21] MEDS ORDERED: SODIUM CHLORIDE 0.9% 1,000 ML IV ONE (19:07)
--- NOTE | 2022-11-21 19:13 | ED ---
Altered Mental Status HPI - General Chief Complaint: Altered Mental Status Stated Complaint: AMS Time Seen by Provider: 11/21/22 19:04 Source: EMS, RN notes reviewed, old records reviewed, Caregiver Mode of arrival: EMS Limitations: altered mental status - History of Present Illness Initial Comments: This is a 81-year-old female presenting from mental status, not acting appropriately per family. Patient was evaluated twice by family and showed significant decline in cognition and how she was acting and responding. Patient currently awake and alert attentive able to answer questions. Patient does know where she is and who she is she. Family is supple patient with what they believe was some facial droop and weakness earlier in the day, EMS was called house and patient signed off on transport to the hospital. Family again can move her patient's house tonight and due to her level of weakness and inability to ambulate told her that she had to cover the hospital. Patient denies any headache chest pain shortness breath abdominal pain currently, mildly confused as to why she is in the hospital with states that she does not feel well or nor mal MD Complaint: altered mental status, confusion -: hour(s) Severity: moderate Consistency of Symptoms: waxing and waning, getting worse Context: history of similar presentation Associated Symptoms: denies other symptoms - Related Data Home Medications Medication Instructions Recorded Confirmed Simvastatin [Zocor] 10 mg PO HS 11/14/16 11/21/22 Pantoprazole Sodium [Protonix] 40 mg PO HS 02/12/18 11/21/22 Donepezil HCl [Aricept] 10 mg PO HS 11/21/22 11/21/22 Montelukast Sodium 10 mg PO HS 11/21/22 11/21/22 Torsemide [Demadex] 20 mg PO BID 11/21/22 11/21/22 cloNIDine HCL 0.2 mg PO BID 11/21/22 11/21/22 Allergies Allergy/AdvReac Type Severity Reaction Status Date / Time adhesive tape Allergy Itching Verified 11/21/22 22:04 Penicillins AdvReac Severe Diarrhea Verified 11/21/22 22:04 terbinafine [From Lamisil] AdvReac Severe Diarrhea Verified 11/21/22 22:04 Review of Systems ROS Statement: Those systems with pertinent positive or pertinent negative responses have been documented in the HPI. ROS Other: All systems not noted in ROS Statement are negative. Past Medical History Past Medical History: Eye Disorder, GERD/Reflux, Hyperlipidemia, Osteoarthritis (OA) Additional Past Medical History / Comment(s): macular degeneration, hx migraines, diverticulits, varicose veins, SOB on exertion, hx hiatal hernia, "leaky bladder" History of Any Multi-Drug Resistant Organisms: None Reported Past Surgical History: Appendectomy, Bowel Resection, Hernia Repair, Hysterectomy, Orthopedic Surgery Additional Past Surgical History / Comment(s): hardeep cataracts, rt knee arthroscopy, Babak Fundoplasty. TOTAL RT HIP 02/22/18, total right knee arthroplasty 06/21/2018 Past Anesthesia/Blood Transfusion Reactions: No Reported Reaction Past Psychological History: No Psychological Hx Reported Past Alcohol Use History: Occasional Past Drug Use History: None Reported - Past Family History Father Family Medical History: Cancer Additional Family Medical History / Comment(s): LEUKEMIA Mother Family Medical History: Deep Vein Thrombosis (DVT) Brother(s) Family Medical History: Cancer Additional Family Medical History / Comment(s): 3 BROTHERS HAD CANCER Son(s) Family Medical History: Deep Vein Thrombosis (DVT) General Exam Limitations: altered mental status General appearance: alert, in no apparent distress Head exam: Present: atraumatic, normocephalic, normal inspection Eye exam: Present: normal appearance, PERRL, EOMI. Absent: scleral icterus, conjunctival injection, periorbital swelling ENT exam: Present: normal exam, mucous membranes moist Neck exam: Present: normal inspection. Absent: tenderness, meningismus, lymphadenopathy Respiratory exam: Present: normal lung sounds bilaterally. Absent: respiratory distress, wheezes, rales, rhonchi, stridor Cardiovascular Exam: Present: regular rate, normal rhythm, normal heart sounds. Absent: systolic murmur, diastolic murmur, rubs, gallop, clicks GI/Abdominal exam: Present: soft, normal bowel sounds. Absent: distended, tenderness, guarding, rebound, rigid Extremities exam: Present: normal inspection, full ROM, normal capillary refill. Absent: tenderness, pedal edema, joint swelling, calf tenderness Back exam: Present: normal inspection Neurological exam: Present: alert, oriented X3, CN II-XII intact Psychiatric exam: Present: normal affect, normal mood Skin exam: Present: warm, dry, intact, normal color. Absent: rash Course Vital Signs 11/21/22 11/21/22 11/21/22 18:42 18:47 19:00 Temperature 98.6 F Pulse Rate 87 Respiratory 16 Rate Blood Pressure 117/63 117/63 O2 Sat by Pulse 94 L 96 95 Oximetry 11/21/22 11/21/22 11/21/22 19:30 20:00 20:30 Temperature Pulse Rate 87 78 Respiratory 20 20 Rate Blood Pressure 118/69 117/79 128/72 O2 Sat by Pulse 96 96 97 Oximetry 11/21/22 11/21/22 11/21/22 21:00 21:30 22:00 Temperature Pulse Rate 82 80 79 Respiratory 22 20 22 Rate Blood Pressure 125/78 127/82 131/75 O2 Sat by Pulse 97 Oximetry 11/21/22 22:30 Temperature Pulse Rate 78 Respiratory 20 Rate Blood Pressure 114/66 O2 Sat by Pulse Oximetry - Reevaluation(s) Reevaluation #1: 11/21/22 19:13 Medical record is reviewed Reevaluation #2: 11/21/22 19:13 Patient symptoms remain improving Reevaluation #3: 11/21/22 19:13 Patient informed results questions answered Reevaluation #4: 11/21/22 19:13 Was pt. sent in by a medical professional or institution? @ -no Did you speak to anyone other than the patient for history? @ -Yes family is at bedside who provides history including EMS visit that did not resolve with transferred to the hospital Did you review nursing and triage notes? @ -agree Were old charts reviewed? @ -no Differential Diagnosis? @ -prior EKG interpreted by me (3pts min.)? @ -yes X-rays interpreted by me (1pt min.)? @ -yes CT interpreted by me (1pt min.)? @ -yes U/S interpreted by me (1pt. min.)? @ -no What testing was considered but not performed? (CT, X-rays, U/S, labs)? Why? @ -no What meds were considered but not given? Why? @ -no Did you discuss the management of the patient with other professionals? @ -no Did you reconcile home meds? @ -no Was smoking cessation discussed for >3mins.? @ -no Was critical care preformed (if so, how long)? @ -yes31 Were there social determinants of health that impacted care today? How? (Homelessness, low income, unemployed, alcoholism, drug addiction, transportation, low edu. Level, literacy, decrease access to med. care, nursing home, rehab)? @ -no Was there de-escalation of care discussed even if they declined? (Discuss DNR or withdrawal of care, Hospice)? @ -no What co-morbidities impacted this encounter? (DM, HTN, Smoking, COPD, CAD, Cancer, CVA, Hep., AIDS, mental health diagnosis, sleep apnea, morbid obesity)? @ -none Was patient admitted / discharged? @ -81 female returns department for evaluation patient presents today for evaluation of altered mental status not acting appropriately feeling well. No shortness breath chest pain headache or other complaints. Patient initially may have had some facial droop per family was seen by EMS EMS was signed off upon and more family came over later in the day to find patient with impressive weakness and made patient come the hospital. Patient has no specific complaints but may be early dementia. Patient is no travel history or sick contacts again no other complaints patient does have significantly highly elevated troponin cardiology is aware and patient will be admitted for further evaluation and management Admitted Undiagnosed new problem with uncertain prognosis? @ -no Drug Therapy requiring intensive monitoring for toxicity (Heparin, Nitro, Insulin, Cardizem)? @ -no Were any procedures done? @ -no Diagnosis/symptom? @ -Altered mental status, acute coronary syndrome, weakness Acute, or Chronic, or Acute on Chronic? @ -Acute Uncomplicated (without systemic symptoms) or Complicated (systemic symptoms)? @ -complicated Side effects of treatment? @ -no Exacerbation, Progression, or Severe Exacerbation] @ -no Poses a threat to life or bodily function? @ -Yes was significantly elevated troponin and acute coronary syndrome Reevaluation #5: 11/21/22 19:13 Differential Altered Mental Status: Hypoglycemia, DKA, hypercapnia, ETOH, overdose, CO poisoning, trauma, myxedema coma, HTN encephalopathy, infection, encephalitis, psychosis, intercranial hemorrhage, hepatic encephalopathy, meningitis, CVA, this is not meant to be an all-inclusive list - Consultations Consultation #1: Spoke with admitting physicians reviewed with the patient spoke with Dr. Cunningham who agrees to admit the patient Consultation #2: Token with cardiology who is aware severely elevated troponin Medical Decision Making - Medical Decision Making 81 female returns department for evaluation patient presents today for evaluation of altered mental status not acting appropriately feeling well. No shortness breath chest pain headache or other complaints. Patient initially may have had some facial droop per family was seen by EMS EMS was signed off upon and more family came over later in the day to find patient with impressive weakness and made patient come the hospital. Patient has no specific complaints but may be early dementia. Patient is no travel history or sick contacts again no other complaints patient does have significantly highly elevated troponin cardiology is aware and patient will be admitted for further evaluation and management - Lab Data Result diagrams: 11/25/22 11:18 11/25/22 11:18 Lab Results 11/21/22 11/21/22 11/21/22 Range/Units 19:31 19:37 19:37 WBC 17.5 H (3.8-10.6) k/uL RBC 4.92 (3.80-5.40) m/uL Hgb 14.0 (11.4-16.0) gm/dL Hct 43.4 (34.0-46.0) % MCV 88.2 (80.0-100.0) fL MCH 28.5 (25.0-35.0) pg MCHC 32.3 (31.0-37.0) g/dL RDW 15.5 (11.5-15.5) % Plt Count 259 (150-450) k/uL MPV 7.6 Neutrophils % 88 % Lymphocytes % 7 % Monocytes % 4 % Eosinophils % 0 % Basophils % 0 % Neutrophils # 15.3 H (1.3-7.7) k/uL Lymphocytes # 1.2 (1.0-4.8) k/uL Monocytes # 0.7 (0-1.0) k/uL Eosinophils # 0.1 (0-0.7) k/uL Basophils # 0.0 (0-0.2) k/uL PT 9.9 (9.0-12.0) sec INR 0.9 (<1.2) APTT 21.3 L (22.0-30.0) sec Sodium (137-145) mmol/L Potassium (3.5-5.1) mmol/L Chloride (98-107) mmol/L Carbon Dioxide (22-30) mmol/L Anion Gap mmol/L BUN (7-17) mg/dL Creatinine (0.52-1.04) mg/dL Est GFR (CKD-EPI)AfAm (>60 ml/min/1.73 sqM) Est GFR (CKD-EPI)NonAf (>60 ml/min/1.73 sqM) Glucose (74-99) mg/dL POC Glucose (mg/dL) 132 H (70-110) mg/dL POC Glu [employer] Elisa Armando Calcium (8.4-10.2) mg/dL Phosphorus (2.5-4.5) mg/dL Magnesium (1.6-2.3) mg/dL Total Bilirubin (0.2-1.3) mg/dL AST (14-36) U/L ALT (4-34) U/L Alkaline Phosphatase (38-126) U/L Troponin I (0.000-0.034) ng/mL Total Protein (6.3-8.2) g/dL Albumin (3.5-5.0) g/dL Serum Alcohol mg/dL 11/21/22 11/21/22 Range/Units 19:37 19:37 WBC (3.8-10.6) k/uL RBC (3.80-5.40) m/uL Hgb (11.4-16.0) gm/dL Hct (34.0-46.0) % MCV (80.0-100.0) fL MCH (25.0-35.0) pg MCHC (31.0-37.0) g/dL RDW (11.5-15.5) % Plt Count (150-450) k/uL MPV Neutrophils % % Lymphocytes % % Monocytes % % Eosinophils % % Basophils % % Neutrophils # (1.3-7.7) k/uL Lymphocytes # (1.0-4.8) k/uL Monocytes # (0-1.0) k/uL Eosinophils # (0-0.7) k/uL Basophils # (0-0.2) k/uL PT (9.0-12.0) sec INR (<1.2) APTT (22.0-30.0) sec Sodium 142 (137-145) mmol/L Potassium 3.9 (3.5-5.1) mmol/L Chloride 104 (98-107) mmol/L Carbon Dioxide 25 (22-30) mmol/L Anion Gap 13 mmol/L BUN 33 H (7-17) mg/dL Creatinine 2.39 H (0.52-1.04) mg/dL Est GFR (CKD-EPI)AfAm 22 (>60 ml/min/1.73 sqM) Est GFR (CKD-EPI)NonAf 19 (>60 ml/min/1.73 sqM) Glucose 128 H (74-99) mg/dL POC Glucose (mg/dL) (70-110) mg/dL POC Glu [employer] Worker ID Calcium 10.0 (8.4-10.2) mg/dL Phosphorus 3.7 (2.5-4.5) mg/dL Magnesium 2.4 H (1.6-2.3) mg/dL Total Bilirubin 0.9 (0.2-1.3) mg/dL AST 176 H (14-36) U/L ALT 34 (4-34) U/L Alkaline Phosphatase 188 H (38-126) U/L Troponin I 19.600 H* (0.000-0.034) ng/mL Total Protein 7.3 (6.3-8.2) g/dL Albumin 4.2 (3.5-5.0) g/dL Serum Alcohol <10 mg/dL - EKG Data -: EKG Interpreted by Me (EKG is sinus 78 W[place] 111 QRS 160 QTC 4:30) - Radiology Data Radiology results: report reviewed (CT brain C-spine x-ray chest pelvis and right hip negative for traumatic injury), image reviewed Critical Care Time Critical Care Time: Yes Total Critical Care Time: 31 Disposition Clinical Impression: Altered mental status, Bilateral pleural effusion, Delirium due to general medical condition, CHF (congestive heart failure), NSTEMI (non-ST elevated myocardial infarction), ACS (acute coronary syndrome), Acute kidney injury, Weakness, UTI (urinary tract infection) Disposition: ADMITTED IP TO THIS HOSP Condition: Critical Is patient prescribed a controlled substance at d/c from ED?: No Time of Disposition: 21:30
[2022-11-21 19:33] LABS: Glucose,Whole Blood 132 mg/dL (70-110)
[2022-11-21 20:02] LABS: Basophils % (A) 0 %; Eosinophils # (A) 0.1 k/uL (0-0.7); Eosinophils % (A) 0 %; HCT 43.4 % (34.0-46.0); Lymphocytes # (A) 1.2 k/uL (1.0-4.8); Lymphocytes % (A) 7 %; MCH 28.5 pg (25.0-35.0); MCHC 32.3 g/dL (31.0-37.0); MCV 88.2 fL (80.0-100.0); Mean Platelet Volume 7.6; Monocytes # (A) 0.7 k/uL (0-1.0); Monocytes % (A) 4 %; Neutrophils # (A) 15.3 k/uL (1.3-7.7); Neutrophils % (A) 88 %; Platelet Count 259 k/uL (150-450); RBC 4.92 m/uL (3.80-5.40); RDW 15.5 % (11.5-15.5); WBC 17.5 k/uL (3.8-10.6)
[2022-11-21 20:19] LABS: ALT 34 U/L (4-34); AST 176 U/L (14-36); African American GFR (CKD) 22 (>60 ml/min/1.73 sqM); Albumin 4.2 g/dL (3.5-5.0); Alcohol <10 mg/dL; Alkaline Phosphatase 188 U/L (38-126); Anion Gap 13 mmol/L; Blood Urea Nitrogen 33 mg/dL (7-17); Carbon Dioxide 25 mmol/L (22-30); Chloride 104 mmol/L (98-107); Glucose 128 mg/dL (74-99); Magnesium 2.4 mg/dL (1.6-2.3); Non-African American GFR(CKD) 19 (>60 ml/min/1.73 sqM); Phosphorus 3.7 mg/dL (2.5-4.5); Potassium 3.9 mmol/L (3.5-5.1); Sodium 142 mmol/L (137-145); Total Bilirubin 0.9 mg/dL (0.2-1.3); Total Protein 7.3 g/dL (6.3-8.2)
[2022-11-21 20:20] LABS: INR 0.9 (<1.2); Partial Thromboplastin Time 21.3 sec (22.0-30.0)
[2022-11-21 20:22] LABS: Prothrombin Time 9.9 sec (9.0-12.0)
--- NOTE | 2022-11-21 21:25 | XR ---
EXAMINATION TYPE: XR Hip RT and AP Pelvis DATE OF EXAM: 11/21/2022 9:05 PM INDICATION: Patient age:Female; 81 years old; Reason for study: ams; COMPARISON: None. TECHNIQUE: The right hip was examined in the frontal and lateral projections and a AP pelvis. FINDINGS: Post arthroplasty changes, hardware is intact, alignment is appropriate. No evidence of fra cture. No evidence of any acute osseous pathology or joint dislocation. IMPRESSION: Hip arthroplasty with hardware intact and in appropriate alignment. No acute fracture.
--- NOTE | 2022-11-21 21:26 | XR ---
EXAMINATION TYPE: XR chest 1V DATE OF EXAM: 11/21/2022 9:04 PM COMPARISON: Chest radiographs from 02/09/2019 TECHNIQUE: XR chest 1V Frontal view of the chest. CLINICAL INDICATION:Female, 81 years old with history of ams; FINDINGS: Lungs/Pleura: There is no evidence of focal consolidation, or pneumothorax. Left blunting of the cos tophrenic angle. Pulmonary vascularity: Pulmonary vascular congestion. Heart/mediastinum: Cardiomediastinal silhouette is enlarged and stable. Atherosclerotic calcificatio ns are seen in the aorta. Musculoskeletal: No acute osseous pathology. IMPRESSION: Cardiomegaly, pulmonary vascular congestion and bilateral pleural effusions. Correlate with BNP for c ongestive heart failure.
--- NOTE | 2022-11-21 21:30 | CT ---
EXAMINATION TYPE: CT brain cspine wo con CT DLP: 1420.9 mGycm, Automated exposure control for dose reduction was used. DATE OF EXAM: 11/21/2022 9:00 PM COMPARISON: 09/01/2011 MRI CLINICAL INDICATION:Female, 81 years old with history of ams; AMS. Weakness TECHNIQUE: Brain: Multiple axial CT images of the brain were obtained without IV contrast. Cspine: Axial CT images from the skull base to the inferior aspect of T2 we obtained without intraven ous contrast. Coronal and sagittal reformatted images were also reviewed. FINDINGS: Brain: Extra-axial spaces: No abnormal extra-axial fluid collections. Ventricular system: Dilatation in proportion to cerebral atrophy. Cerebral parenchyma: Cerebral atrophy. No acute intraparenchymal hemorrhage or mass effect. The rod -white junction is well differentiated. Scattered hypoattenuating areas are seen within the white mat ter. Cerebellum: Unremarkable. Mass effect: No evidence of midline shift. Intracranial vasculature: Atherosclerotic calcifications of the intracranial vessels. Soft tissues: Normal. Calvarium/osseous structures: No depressed skull fracture. Paranasal sinuses and mastoid air cells: Clear. Visualized orbits: Bilateral aphakia Cervical spine: Fracture: None. Osseous structures: Multilevel degenerative disc disease changes with endplate spurring and disc oste ophyte complex's. Vertebral alignment: Within normal limits. Spinal canal/Neural Foramina: Disc osteophyte complexes at C4-C5 and C5-C6 and C6-C7 with at least mi ld spinal canal stenosis. No evidence for significant neural foraminal stenosis. Neck soft tissues: Prevertebral soft tissues are within normal limits. Other: The airway is patent. The lung apices are clear. IMPRESSION: 1. No acute intracranial process. 2. Nonspecific white matter changes, likely secondary to chronic small vessel ischemic disease. 3. No evidence of cervical spine fracture. 4. Moderate multilevel degenerative disc disease.
[2022-11-21] MEDS ORDERED: HEPARIN SODIUM 1,000 UN/ML (10ML VL) IV ONE (21:32)
[2022-11-21] MEDS ORDERED: NALOXONE 0.4 MG/ML 1 ML VIAL IV PRN (21:32)
[2022-11-21] MEDS ORDERED: HEPARIN SODIUM 1,000 UN/ML (10ML VL) IV PRN (21:32)
[2022-11-21] MEDS: HEPARIN SOD,PORK IN 0.45% NACL 25,000 UNIT in 0.45% NACL 1 250ML.BAG IV SCH (22:16)
[2022-11-21 22:21] LABS: Appearance,Urine Cloudy (Clear); Bacteria,Urine Many /hpf; Bilirubin,Urine Negative (Negative); Blood,Urine Large (Negative); Color,Urine Yellow; Glucose,Urine (UA) Negative (Negative); Hyaline Casts,Urine 13 /lpf (0-2); Ketones,Urine Negative (Negative); Leukocyte Esterase,Urine Large (Negative); Mucus,Urine Rare /hpf; Nitrite,Urine Negative (Negative); PH, Urine 5.5 (5.0-8.0); Protein,Urine Trace (Negative); RBC,Urine 7 /hpf (0-5); Squamous Epithelial Cell,Urine 1 /hpf (0-4); Urobilinogen,Urine <2.0 mg/dL (<2.0); WBC,Urine 40 /hpf (0-5)
[2022-11-21 22:29] LABS: Amphetamine Screen,Urine Not Detected (NotDetected); Barbiturate Screen,Urine Not Detected (NotDetected); Benzodiazepines Screen,Urine Not Detected (NotDetected); Cocaine Screen,Urine Not Detected (NotDetected); Methadone Screen, Urine Not Detected (NotDetected); Opiate Screen,Urine Not Detected (NotDetected); Oxycodone Screen, Urine Not Detected (NotDetected); Phencyclidine Screen,Urine Not Detected (NotDetected); Tricyclic Antidepressant,Urine Not Detected (NotDetected); Urn Cannabinoid Scrn Not Detected (NotDetected)
[2022-11-21] MEDS: SODIUM CHLORIDE 0.9% 1,000 ML IV SCH (22:33)
[2022-11-22 01:28] LABS: Glucose,Whole Blood 147 mg/dL (70-110)
[2022-11-22] MEDS ORDERED: ADENOSINE 3 MG/ML 2 ML VIAL IVP ONE ×2 (01:29)
[2022-11-22] MEDS ORDERED: DEXTROSE 5% IN WATER 100 ML with AMIODARONE 150 MG IV ONE (01:38)
[2022-11-22] MEDS ORDERED: AMIODARONE 360 MG in DEXTROSE 5% IN WATER 200 ML IV ONE ×2 (01:50)
[2022-11-22 05:12] LABS: Basophils % (A) 0 %; Eosinophils % (A) 0 %; HGB 11.9 gm/dL (11.4-16.0); Lymphocytes # (A) 1.2 k/uL (1.0-4.8); Lymphocytes % (A) 8 %; MCH 27.7 pg (25.0-35.0); MCHC 31.2 g/dL (31.0-37.0); MCV 88.6 fL (80.0-100.0); Mean Platelet Volume 8.3; Monocytes # (A) 0.8 k/uL (0-1.0); Monocytes % (A) 5 %; Neutrophils # (A) 13.8 k/uL (1.3-7.7); Neutrophils % (A) 86 %; Platelet Count 213 k/uL (150-450); RBC 4.29 m/uL (3.80-5.40); RDW 15.6 % (11.5-15.5)
[2022-11-22 05:47] LABS: ALT 32 U/L (4-34); AST 146 U/L (14-36); African American GFR (CKD) 24 (>60 ml/min/1.73 sqM); Albumin 3.2 g/dL (3.5-5.0); Alkaline Phosphatase 131 U/L (38-126); Anion Gap 11 mmol/L; Blood Urea Nitrogen 36 mg/dL (7-17); Calcium 8.7 mg/dL (8.4-10.2); Carbon Dioxide 21 mmol/L (22-30); Chloride 109 mmol/L (98-107); Glucose 114 mg/dL (74-99); Magnesium 2.2 mg/dL (1.6-2.3); Non-African American GFR(CKD) 21 (>60 ml/min/1.73 sqM); Phosphorus 4.3 mg/dL (2.5-4.5); Potassium 3.2 mmol/L (3.5-5.1); Sodium 141 mmol/L (137-145); Total Bilirubin 0.7 mg/dL (0.2-1.3); Total Protein 5.8 g/dL (6.3-8.2)
[2022-11-22] MEDS: SODIUM CHLORIDE 0.9% 1,000 ML IV SCH ×2 (06:04→17:21)
[2022-11-22] MEDS ORDERED: FUROSEMIDE 10 MG/ML 2 ML VIAL IV ONE ×2 (07:35→19:41)
[2022-11-22] MEDS ORDERED: MORPHINE SULFATE 2 MG/ML SYRINGE IVP STA ×2 (07:35→19:41)
[2022-11-22] MEDS: AMIODARONE 450 MG in DEXTROSE 5% IN WATER 250 ML IV SCH ×4 (07:43→20:48)
--- NOTE | 2022-11-22 08:05 | P.CRDCN ---
History of Present Illness Consult date: 11/22/22 Chief complaint: Chest discomfort and shortness of breath History of present illness: The patient is a pleasant 81-year-old female patient with a past medical history significant for hypertension and dyslipidemia and history of smoking currently she is not a smoker as well as history of underlying dementia was brought to the hospital by her family because she was not feeling well. The patient somewhat is a poor historian but apparently for the last few days she has been experiencing symptoms of chest discomfort. The discomfort was across the chest was no radiation to the arms or neck or shoulders or back. No associated symptoms of dizziness or lightheadedness or any feeling of heart racing or fluttering or presyncope or syncope. She was brought to the emergency department where she underwent further evaluation including an EKG initially showed sinus mechanism was T-wave inversion in lead 1 and aVL and Q wave in V1 to V6. Subsequently she went into arrhythmia to me appeared to be in atrial fibrillation/atrial flutter and subsequently she was started on amiodarone IV with conversion to sinus mechanism. Earlier today she went into acute respiratory distress related to pulmonary edema where she was given Lasix and morphine. Her pressure has been marginal. An echo is in process to be done. Troponin came in to be abnormal and consistent with acute coronary syndrome. The EKG as described above. The chest x-ray showed findings consistent with pulmonary edema. Creatinine is abnormal and she seems to be in acute on chronic renal failure. No history of coronary artery disease or congestive heart failure or cardiac arrhythmia and the patient never seen by a sawmilling operator before. On examination she is in mild respiratory distress which has improved after the morphine and Lasix. She does have bilateral rhonchi. She does have mild bilateral lower extremity is edema noted. Currently she is hypoxic on nonrebreather. Assessment Acute non-ST elevation myocardial infarction Cardiac arrhythmia in terms of atrial fibrillation/flutter and converted to normal sinus mechanism Heart failure exacerbation and known etiology at this point Acute hypoxic respiratory failure Paroxysmal atrial fibrillation I'll double comorbid conditions Plan Dual antiplatelet therapy Continue heparin IV Continue amiodarone IV Follow-up on the echocardiogram Follow-up on the serial cardiac enzymes Consider proceeding with coronary angiogram [place] continue monitoring the kidney function and electrolytes Past Medical History Past Medical History: Eye Disorder, GERD/Reflux, Hyperlipidemia, Osteoarthritis (OA) Additional Past Medical History / Comment(s): macular degeneration, hx migraines, diverticulits, varicose veins, SOB on exertion, hx hiatal hernia, "leaky bladder" History of Any Multi-Drug Resistant Organisms: None Reported Past Surgical History: Appendectomy, Bowel Resection, Hernia Repair, Hysterectomy, Orthopedic Surgery Additional Past Surgical History / Comment(s): hardeep cataracts, rt knee arthroscopy, Babak Fundoplasty. TOTAL RT HIP 02/22/18, total right knee arthroplasty 06/21/2018 Past Anesthesia/Blood Transfusion Reactions: No Reported Reaction Past Psychological History: No Psychological Hx Reported Smoking Status: Former smoker Past Alcohol Use History: Occasional Additional Past Alcohol Use History / Comment(s): quit smoking 2007, smoked 40 years, 1 pkg a day Past Drug Use History: None Reported - Past Family History Father Family Medical History: Cancer Additional Family Medical History / Comment(s): LEUKEMIA Mother Family Medical History: Deep Vein Thrombosis (DVT) Brother(s) Family Medical History: Cancer Additional Family Medical History / Comment(s): 3 BROTHERS HAD CANCER Son(s) Family Medical History: Deep Vein Thrombosis (DVT) Medications and Allergies Home Medications Medication Instructions Recorded Confirmed Type Simvastatin [Zocor] 10 mg PO HS 11/14/16 11/21/22 History Pantoprazole Sodium [Protonix] 40 mg PO HS 02/12/18 11/21/22 History Donepezil HCl [Aricept] 10 mg PO HS 11/21/22 11/21/22 History Montelukast Sodium 10 mg PO HS 11/21/22 11/21/22 History Torsemide [Demadex] 20 mg PO BID 11/21/22 11/21/22 History cloNIDine HCL 0.2 mg PO BID 11/21/22 11/21/22 History Allergies Allergy/AdvReac Type Severity Reaction Status Date / Time adhesive tape Allergy Itching Verified 11/21/22 22:04 Penicillins AdvReac Severe Diarrhea Verified 11/21/22 22:04 terbinafine [From Lamisil] AdvReac Severe Diarrhea Verified 11/21/22 22:04 Physical Exam Vitals: Vital Signs Temp Pulse Pulse Pulse Resp BP BP 11/22/22 07:30 170 H 36 H 118/70 11/22/22 04:00 98.3 F 80 18 93/66 11/22/22 02:10 157 H 92/68 11/22/22 01:46 174 H 112/81 11/22/22 01:40 170 H 102/71 11/22/22 01:18 98.3 F 189 H 22 121/82 11/21/22 23:10 98.1 F 83 16 128/65 11/21/22 22:49 98.3 F 11/21/22 22:30 78 20 114/66 11/21/22 22:00 79 22 131/75 11/21/22 21:30 80 20 127/82 11/21/22 21:00 82 22 125/78 11/21/22 20:30 78 20 128/72 11/21/22 20:00 87 20 117/79 11/21/22 19:30 118/69 11/21/22 19:00 117/63 11/21/22 18:47 98.6 F 87 16 117/63 11/21/22 18:42 Pulse Ox 11/22/22 07:30 82 L 11/22/22 04:00 97 11/22/22 02:10 96 11/22/22 01:46 96 11/22/22 01:40 96 11/22/22 01:18 95 11/21/22 23:10 98 11/21/22 22:49 11/21/22 22:30 11/21/22 22:00 11/21/22 21:30 11/21/22 21:00 97 11/21/22 20:30 97 11/21/22 20:00 96 11/21/22 19:30 96 11/21/22 19:00 95 11/21/22 18:47 96 11/21/22 18:42 94 L Intake and Output 11/21/22 11/22/22 11/22/22 22:59 06:59 14:59 Intake Total 88.58 Balance 88.58 Intake: IV 20 Invasive Line 1 10 Invasive Line 2 10 Intake, IV Titration 68.58 Amount Heparin Sod,Pork in 0.45% 68.58 NaCl 25,000 unit In 0.45 % NaCl 1 250ml.bag @ 12 UNITS/KG/HR 9.144 mls/hr IV .Q24H [facility] Rx#: [id number] Other: Voiding Method Bedpan # Voids 1 Weight 76.204 kg 76.204 kg Results 11/22/22 04:26 11/22/22 04:26 Cardiac Enzymes 11/21/22 11/21/22 11/21/22 Range/Units 19:37 19:37 23:51 AST 176 H (14-36) U/L Troponin I 19.600 H* 16.200 H* (0.000-0.034) ng/mL 11/22/22 11/22/22 Range/Units 04:26 04:26 AST 146 H (14-36) U/L Troponin I 14.600 H* (0.000-0.034) ng/mL Coagulation 11/21/22 11/22/22 Range/Units 19:37 04:26 PT 9.9 (9.0-12.0) sec APTT 21.3 L 58.1 H (22.0-30.0) sec CBC 11/21/22 11/22/22 Range/Units 19:37 04:26 WBC 17.5 H 16.0 H (3.8-10.6) k/uL RBC 4.92 4.29 (3.80-5.40) m/uL Hgb 14.0 11.9 (11.4-16.0) gm/dL Hct 43.4 38.0 (34.0-46.0) % Plt Count 259 213 (150-450) k/uL Comprehensive Metabolic Panel 11/21/22 11/22/22 Range/Units 19:37 04:26 Sodium 142 141 (137-145) mmol/L Potassium 3.9 3.2 L (3.5-5.1) mmol/L Chloride 104 109 H (98-107) mmol/L Carbon Dioxide 25 21 L (22-30) mmol/L BUN 33 H 36 H (7-17) mg/dL Creatinine 2.39 H 2.16 H (0.52-1.04) mg/dL Glucose 128 H 114 H (74-99) mg/dL Calcium 10.0 8.7 (8.4-10.2) mg/dL AST 176 H 146 H (14-36) U/L ALT 34 32 (4-34) U/L Alkaline Phosphatase 188 H 131 H (38-126) U/L Total Protein 7.3 5.8 L (6.3-8.2) g/dL Albumin 4.2 3.2 L (3.5-5.0) g/dL Current Medications Generic Name Dose Route Start Last Admin Trade Name Freq PRN Reason Stop Dose Admin Heparin Sodium (Porcine) 0 unit 11/21/22 21:32 Heparin Sodium 1,000 Un/Ml (10ml Vl) IV PER PROTOCOL PRN Low PTT Protocol Heparin Sodium/Sodium Chloride 250 mls @ 9.144 mls/hr 11/21/22 21:45 11/22/22 05:46 25,000 unit/ Sodium Chloride IV 12 units/kg/hr .Q24H [facility] 9.144 mls/hr Titration Protocol 12 UNITS/KG/HR Sodium Chloride 1,000 mls @ 130 mls/hr 11/21/22 21:45 11/22/22 06:04 Saline 0.9% IV 130 mls/hr .Q7H42M [facility] Administration Ceftriaxone Sodium 2 gm/ 50 mls @ 100 mls/hr 11/22/22 22:00 Sodium Chloride IVPB Q24H [facility] Protocol Amiodarone HCl 450 mg/ 250 mls @ 16.667 mls/hr 11/22/22 08:00 11/22/22 07:43 Dextrose/Water IV 11/23/22 01:59 0.5 mg/min .Q15H [facility] 16.667 mls/hr Administration Protocol 0.5 MG/MIN Morphine Sulfate 4 mg 11/21/22 21:32 Morphine Sulfate 4 Mg/Ml Syringe IV Q4HR PRN Severe Pain (Scale 7 to 10) Naloxone HCl 0.2 mg 11/21/22 21:32 Naloxone 0.4 Mg/Ml 1 Ml Vial IV Q2M PRN Opioid Reversal Ondansetron HCl 4 mg 11/21/22 21:32 Ondansetron 4 Mg/2 Ml Vial IVP Q8HR PRN Nausea And Vomiting Pantoprazole Sodium 40 mg 11/22/22 09:00 Pantoprazole 40 Mg/10 Ml Vial IV DAILY APRYL Intake and Output 11/21/22 11/22/22 11/22/22 22:59 06:59 14:59 Intake Total 88.58 Balance 88.58 Intake: IV 20 Invasive Line 1 10 Invasive Line 2 10 Intake, IV Titration 68.58 Amount Heparin Sod,Pork in 0.45% 68.58 NaCl 25,000 unit In 0.45 % NaCl 1 250ml.bag @ 12 UNITS/KG/HR 9.144 mls/hr IV .Q24H [facility] Rx#: [id number] Other: Voiding Method Bedpan # Voids 1 Weight 76.204 kg 76.204 kg 11/22/22 04:26 11/22/22 04:26
[2022-11-22] MEDS: ASPIRIN 81 MG PO SCH (08:40)
[2022-11-22] MEDS: PANTOPRAZOLE 40 MG/10 ML VIAL IV SCH (08:40)
[2022-11-22] MEDS: CLOPIDOGREL 75 MG TAB PO SCH (08:40)
[2022-11-22] MEDS ORDERED: FUROSEMIDE 10 MG/ML 4 ML VIAL IV STA (10:56)
[2022-11-22] MEDS ORDERED: POTASSIUM CHLORIDE ER 20 MEQ TAB.ER PO STA (10:56)
--- NOTE | 2022-11-22 11:22 | P.NPCON ---
History of Present Illness - Reason for Consult acute renal failure - History of Present Illness Patient is a 81-year-old female with history of hypertension, dementia. Patient is admitted to the hospital with complaints of chest discomfort for the past few days. EKG showed significant changes and patient was noted to be in A. fib with RVR. She was started on IV amiodarone and converted to sinus rhythm. Patient has been in and out of A. fib this morning. This morning patient also experienced significant shortness of breath and respiratory distress with hypoxia. Patient was placed on oxygen and chest x-ray showed evidence of CHF. Patient received Lasix 20 mg IV this morning. Yip catheter has been placed, however, patient has not diuresed much. Respiratory status is improved with decreased respiratory distress. Serum creatinine 2.39 on initial admission and down to 2.1 today. Previous creatinine 1.0 on 10/05/2019. Blood pressure has been low with systolic in the 90s to low 100. Review of Systems As per HPI Past Medical History Past Medical History: Eye Disorder, GERD/Reflux, Hyperlipidemia, Osteoarthritis (OA) Additional Past Medical History / Comment(s): macular degeneration, hx migr aines, diverticulits, varicose veins, SOB on exertion, hx hiatal hernia, "leaky bladder" History of Any Multi-Drug Resistant Organisms: None Reported Past Surgical History: Appendectomy, Bowel Resection, Hernia Repair, Hysterectomy, Orthopedic Surgery Additional Past Surgical History / Comment(s): hardeep cataracts, rt knee ar throscopy, Babak Fundoplasty. TOTAL RT HIP 02/22/18, total right knee arthroplasty 06/21/2018 Past Anesthesia/Blood Transfusion Reactions: No Reported Reaction Past Psychological History: No Psychological Hx Reported Smoking Status: Former smoker Past Alcohol Use History: Occasional Additional Past Alcohol Use History / Comment(s): quit smoking 2007, smoked 40 years, 1 pkg a day Past Drug Use History: None Reported - Past Family History Father Family Medical History: Cancer Additional Family Medical History / Comment(s): LEUKEMIA Mother Family Medical History: Deep Vein Thrombosis (DVT) Brother(s) Family Medical History: Cancer Additional Family Medical History / Comment(s): 3 BROTHERS HAD CANCER Son(s) Family Medical History: Deep Vein Thrombosis (DVT) Medications and Allergies Home Medications Medication Instructions Recorded Confirmed Type Simvastatin [Zocor] 10 mg PO HS 11/14/16 11/21/22 History Pantoprazole Sodium [Protonix] 40 mg PO HS 02/12/18 11/21/22 History Donepezil HCl [Aricept] 10 mg PO HS 11/21/22 11/21/22 History Montelukast Sodium 10 mg PO HS 11/21/22 11/21/22 History Torsemide [Demadex] 20 mg PO BID 11/21/22 11/21/22 History cloNIDine HCL 0.2 mg PO BID 11/21/22 11/21/22 History Allergies Allergy/AdvReac Type Severity Reaction Status Date / Time adhesive tape Allergy Itching Verified 11/21/22 22:04 Penicillins AdvReac Severe Diarrhea Verified 11/21/22 22:04 terbinafine [From Lamisil] AdvReac Severe Diarrhea Verified 11/21/22 22:04 Physical Exam Vitals: Vital Signs Temp Pulse Pulse Pulse Resp BP BP 11/22/22 08:33 11/22/22 08:30 11/22/22 07:47 145 H 20 102/73 11/22/22 07:40 147 H 20 104/65 11/22/22 07:30 170 H 36 H 118/70 11/22/22 04:00 98.3 F 80 18 93/66 11/22/22 02:10 157 H 92/68 11/22/22 01:46 174 H 112/81 11/22/22 01:40 170 H 102/71 11/22/22 01:18 98.3 F 189 H 22 121/82 11/21/22 23:10 98.1 F 83 16 128/65 11/21/22 22:49 98.3 F 11/21/22 22:30 78 20 114/66 11/21/22 22:00 79 22 131/75 11/21/22 21:30 80 20 127/82 11/21/22 21:00 82 22 125/78 11/21/22 20:30 78 20 128/72 11/21/22 20:00 87 20 117/79 11/21/22 19:30 118/69 11/21/22 19:00 117/63 11/21/22 18:47 98.6 F 87 16 117/63 11/21/22 18:42 Pulse Ox FiO2 11/22/22 08:33 96 11/22/22 08:30 99 11/22/22 07:47 97 100 11/22/22 07:40 97 11/22/22 07:30 82 L 11/22/22 04:00 97 11/22/22 02:10 96 11/22/22 01:46 96 11/22/22 01:40 96 11/22/22 01:18 95 11/21/22 23:10 98 11/21/22 22:49 11/21/22 22:30 11/21/22 22:00 11/21/22 21:30 11/21/22 21:00 97 11/21/22 20:30 97 11/21/22 20:00 96 11/21/22 19:30 96 11/21/22 19:00 95 11/21/22 18:47 96 11/21/22 18:42 94 L Intake and Output 11/21/22 11/22/22 11/22/22 22:59 06:59 14:59 Intake Total 88.58 Balance 88.58 Intake: IV 20 Invasive Line 1 10 Invasive Line 2 10 Intake, IV Titration 68.58 Amount Heparin Sod,Pork in 0.45% 68.58 NaCl 25,000 unit In 0.45 % NaCl 1 250ml.bag @ 12 UNITS/KG/HR 9.144 mls/hr IV .Q24H [facility] Rx#: [id number] Other: Voiding Method Bedpan Indwelling Catheter # Voids 1 Weight 76.204 kg 76.204 kg Patient is awake, comfortable, in no acute distress Examination of the heart S1 and S2 Examination of the lungs decreased breath sounds at the bases with basilar crac kles Abdomen is soft nontender Examination of lower extremity shows trace edema bilaterally WASTEWATER OPERATOR exam grossly intact Results - Lab Results Most recent lab results Calcium 8.7 mg/dL (8.4-10.2) 11/22/22 04:26 Phosphorus 4.3 mg/dL (2.5-4.5) 11/22/22 04:26 Magnesium 2.2 mg/dL (1.6-2.3) 11/22/22 04:26 11/22/22 04:26 11/22/22 04:26 Assessment and Plan Assessment: 1. Acute kidney injury, cardiorenal as well as component of ATN from hypotension/hypoperfusion. Currently with indwelling Yip catheter. I will repeat Lasix at 40 mg as patient has not diuresed much. No nephrotoxic agents on board 2. Acute non-ST elevation [place] 3. A. fib with RVR maintained on amiodarone drip. Patient had converted to sinus rhythm earlier 4. Hypokalemia 5. Acute hypoxic respiratory failure secondary to CHF 6. CHF, ejection fraction not known yet Plan: Replace potassium Diuresis patient. I will increase the Lasix dose. Consider inotropic agents if ejection fraction is low DC IV fluids Okay to proceed with cardiac catheterization if patient becomes hemodynamically unstable. Next Thank you for the consultation. We will continue to follow the patient with you during her hospitalization
--- NOTE | 2022-11-22 12:08 | CA ---
Transthoracic Echo Report Name: Brigida Maurer Age: 81 Gender: F : 1940 Exam Date: 11/22/2022 08:04 Exam Location: [facility] Ht (in): 66 Wt (lb): 168 Ordering Physician: Alvin Sharma MD ([id number]) Attending/Referring Phys: Poultry Picker Giselle King RDCS Procedure CPT: Indications: pulm edema Cardiac Hx: Technical Quality: Fair Contrast 1: Total Dose (mL): Contrast 2: Total Dose (mL): MEASUREMENTS (Male / Female) Normal Values 2D ECHO LV Diastolic Diameter PLAX 4.2 cm 4.2 - 5.9 / 3.9 - 5.3 cm LV Systolic Diameter PLAX 3.5 cm IVS Diastolic Thickness 1.2 cm 0.6 - 1.0 / 0.6 - 0.9 cm LVPW Diastolic Thickness 1.3 cm 0.6 - 1.0 / 0.6 - 0.9 cm LV Relative Wall Thickness 0.6 RV Internal Dim ED PLAX 3.0 cm LVOT Diameter 2.0 cm LA Systolic Diameter LX 3.5 cm 3.0 - 4.0 / 2.7 - 3.8 cm LV Diastolic Volume MOD BP 80.2 cm??? 67 - 155 / 56 - 104 cm??? LV Systolic Volume MOD BP 60.5 cm??? 22 - 58 / 19 - 49 cm??? LV Ejection Fraction MOD BP 24.5 % >= 55 % LV Diastolic Volume MOD 4C 69.8 cm??? LV Systolic Volume MOD 4C 54.7 cm??? LV Ejection Fraction MOD 4C 21.7 % LV Diastolic Length 4C 6.9 cm LV Systolic Length 4C 6.5 cm LV Diastolic Volume MOD 2C 82.8 cm??? LV Systolic Volume MOD 2C 67.6 cm??? LV Ejection Fraction MOD 2C 18.5 % LV Diastolic Length 2C 6.2 cm LV Systolic Length 2C 6.5 cm LA Volume 73.0 cm??? 18 - 58 / 22 - 52 cm??? M-MODE Aortic Root Diameter MM 3.1 cm MV E Point Septal Separation 1.1 cm AV Cusp Separation MM 1.9 cm DOPPLER AV Peak Velocity 118.5 cm/s AV Peak Gradient 5.6 mmHg AI Peak Velocity 262.4 cm/s AI Peak Gradient 27.6 mmHg AI Pressure Half Time 593.8 ms MV Area PHT 4.3 cm??? Mitral E Point Velocity 112.0 cm/s Mitral A Point Velocity 120.1 cm/s Mitral E to A Ratio 0.9 MV Deceleration Time 176.6 ms MV E' Velocity 3.0 cm/s Mitral E to MV E' Ratio 37.5 TR Peak Velocity 369.3 cm/s TR Peak Gradient 54.6 mmHg Right Ventricular Systolic Press 58.9 mmHg FINDINGS Left Ventricle Left ventricular ejection fraction is estimated at 20-25 %. Left ventricular cavity size normal. Mildly increased septal wall thickness. Mildly increased posterior wall thickness. Moderately increased left ventricular systolic volume. Severely decreased left ventricular ejection fraction. Right Ventricle Normal right ventricular size. Severe pulmonary hypertension. Right ventricular systolic pressure estimated at 59 mm hg. Right Atrium Normal right atrial size. Left Atrium Severely increased left atrial volume. Mitral Valve Structurally normal mitral valve. Moderate mitral regurgitation. Aortic Valve Thickened aortic valve without stenosis. Tricuspid Valve Structurally normal tricuspid valve. [id number] tricuspid regurgitation. Pulmonic Valve Structurally normal pulmonic valve. Trace pulmonic regurgitation. Pericardium Normal pericardium. No pericardial effusion. Aorta Normal size aortic root and proximal ascending aorta. CONCLUSIONS Impaired LV function with EF around 20-25% Moderate mitral regurgitation Previewed by: Dr. Alvin Sharma MD (Electronically Signed) Final Date: 22 November 2022 12:07
--- NOTE | 2022-11-22 12:34 | P.HPIM ---
History of Present Illness H&P Date: 11/22/22 History of present illness; patient is a is a 81-year-old lady with past medical history significant for hypertension, dementia, GERD who presented to the ER because of altered mental status. According to family patient was not feeling herself for the last couple of days. Family noticed a significant decline in cognition and how she was acting in the last 24 hours. Family also noticed that there was some facial droop and weakness earlier in the day that resolved. Family also stated that the patient was complaining of chest pain, it was like a discomfort present across the chest, there was no complain of any radiation or any aggravating or relieving factors associated with this chest pain. Because of altered mental status patient was brought to the ER Initial lab work done in the ER showed WBC 17.5, hemoglobin 14, platelet count 259, sodium 142, potassium 3.9, chloride 109, BUN 36, creatinine 2.39, troponin 19.6 CT head and cervical spine done showed no acute intracranial process, no acute cervical spine fracture Patient was admitted to medicine service for further evaluation and treatment REVIEW OF SYSTEMS: CONSTITUTIONAL: No fever, no malaise, no fatigue. HEENT: No recent visual problems or hearing problems. Denied any sore throat. CARDIOVASCULAR: As mentioned above PULMONARY: No shortness of breath, no cough, no hemoptysis. GASTROINTESTINAL: No diarrhea, no nausea, no vomiting, no abdominal pain. NEUROLOGICAL: No headaches, no weakness, no numbness. HEMATOLOGICAL: Denies any bleeding or petechiae. GENITOURINARY: Denies any burning micturition, frequency, or urgency. MUSCULOSKELETAL/RHEUMATOLOGICAL: Denies any joint pain, swelling, or any muscle pain. ENDOCRINE: Denies any polyuria or polydipsia. The rest of the 14-point review of systems is negative. PHYSICAL EXAMINATION: GENERAL: The patient is alert and oriented x3, not in any acute distress. Well developed, well nourished. HEENT: Pupils are round and equally reacting to light. EOMI. No scleral icterus. No conjunctival pallor. Normocephalic, atraumatic. No pharyngeal erythema. No thyromegaly. CARDIOVASCULAR: S1 and S2 present. No murmurs, rubs, or gallops. PULMONARY: Chest is clear to auscultation, no wheezing or crackles. ABDOMEN: Soft, nontender, nondistended, normoactive bowel sounds. No palpable organomegaly. MUSCULOSKELETAL: No joint swelling or deformity. EXTREMITIES: No cyanosis, clubbing, or pedal edema. NEUROLOGICAL: Gross neurological examination did not reveal any focal deficits. SKIN: No rashes. Assessment and plan Acute metabolic encephalopathy Paroxysmal atrial flutter/fibrillation converted to normal sinus rhythm Non-ST elevation IN Hypokalemia Acute kidney injury Monitor vital signs Monitor CBC Monitor CMP Continue telemetry monitoring Continue dual antiplatelet therapy Continue amiodarone Continue pharmacy dose heparin 2-D echo ordered Avoid nephrotoxic agents Consult cardiology Consult nephrology Consult neurology Past Medical History Past Medical History: Eye Disorder, GERD/Reflux, Hyperlipidemia, Osteoarthritis (OA) Additional Past Medical History / Comment(s): macular degeneration, hx migraines, diverticulits, varicose veins, SOB on exertion, hx hiatal hernia, "leaky bladder" History of Any Multi-Drug Resistant Organisms: None Reported Past Surgical History: Appendectomy, Bowel Resection, Hernia Repair, Hysterectomy, Orthopedic Surgery Additional Past Surgical History / Comment(s): hardeep cataracts, rt knee arthroscopy, Babak Fundoplasty. TOTAL RT HIP 02/22/18, total right knee arthroplasty 06/21/2018 Past Anesthesia/Blood Transfusion Reactions: No Reported Reaction Past Psychological History: No Psychological Hx Reported Smoking Status: Former smoker Past Alcohol Use History: Occasional Additional Past Alcohol Use History / Comment(s): quit smoking 2007, smoked 40 years, 1 pkg a day Past Drug Use History: None Reported - Past Family History Father Family Medical History: Cancer Additional Family Medical History / Comment(s): LEUKEMIA Mother Family Medical History: Deep Vein Thrombosis (DVT) Brother(s) Family Medical History: Cancer Additional Family Medical History / Comment(s): 3 BROTHERS HAD CANCER Son(s) Family Medical History: Deep Vein Thrombosis (DVT) Medications and Allergies Home Medications Medication Instructions Recorded Confirmed Type Simvastatin [Zocor] 10 mg PO HS 11/14/16 11/21/22 History Pantoprazole Sodium [Protonix] 40 mg PO HS 02/12/18 11/21/22 History Donepezil HCl [Aricept] 10 mg PO HS 11/21/22 11/21/22 History Montelukast Sodium 10 mg PO HS 11/21/22 11/21/22 History Torsemide [Demadex] 20 mg PO BID 11/21/22 11/21/22 History cloNIDine HCL 0.2 mg PO BID 11/21/22 11/21/22 History Allergies Allergy/AdvReac Type Severity Reaction Status Date / Time adhesive tape Allergy Itching Verified 11/21/22 22:04 Penicillins AdvReac Severe Diarrhea Verified 11/21/22 22:04 terbinafine [From Lamisil] AdvReac Severe Diarrhea Verified 11/21/22 22:04 Physical Exam Vitals: Vital Signs Temp Pulse Pulse Pulse Resp BP BP 11/22/22 08:33 11/22/22 08:30 11/22/22 07:47 145 H 20 102/73 11/22/22 07:40 147 H 20 104/65 11/22/22 07:30 170 H 36 H 118/70 11/22/22 04:00 98.3 F 80 18 93/66 11/22/22 02:10 157 H 92/68 11/22/22 01:46 174 H 112/81 11/22/22 01:40 170 H 102/71 11/22/22 01:18 98.3 F 189 H 22 121/82 11/21/22 23:10 98.1 F 83 16 128/65 11/21/22 22:49 98.3 F 11/21/22 22:30 78 20 114/66 11/21/22 22:00 79 22 131/75 11/21/22 21:30 80 20 127/82 11/21/22 21:00 82 22 125/78 11/21/22 20:30 78 20 128/72 11/21/22 20:00 87 20 117/79 11/21/22 19:30 118/69 11/21/22 19:00 117/63 11/21/22 18:47 98.6 F 87 16 117/63 11/21/22 18:42 Pulse Ox FiO2 11/22/22 08:33 96 11/22/22 08:30 99 11/22/22 07:47 97 100 11/22/22 07:40 97 11/22/22 07:30 82 L 11/22/22 04:00 97 11/22/22 02:10 96 11/22/22 01:46 96 11/22/22 01:40 96 11/22/22 01:18 95 11/21/22 23:10 98 06/16/23 22:49 11/21/22 22:30 11/21/22 22:00 11/21/22 21:30 11/21/22 21:00 97 11/21/22 20:30 97 11/21/22 20:00 96 11/21/22 19:30 96 11/21/22 19:00 95 11/21/22 18:47 96 11/21/22 18:42 94 L Intake and Output 11/21/22 11/22/22 11/22/22 22:59 06:59 14:59 Intake Total 88.58 Balance 88.58 Intake: IV 20 Invasive Line 1 10 Invasive Line 2 10 Intake, IV Titration 68.58 Amount Heparin Sod,Pork in 0.45% 68.58 NaCl 25,000 unit In 0.45 % NaCl 1 250ml.bag @ 12 UNITS/KG/HR 9.144 mls/hr IV .Q24H [facility] Rx#: [id number] Other: Voiding Method Bedpan # Voids 1 Weight 76.204 kg 76.204 kg Results CBC & Chem 7: 11/22/22 04:26 11/22/22 04:26 Labs: Abnormal Lab Results - Last 24 Hours (Table) 11/21/22 11/21/22 11/21/22 Range/Units 19:31 19:37 19:37 WBC 17.5 H (3.8-10.6) k/uL RDW (11.5-15.5) % Neutrophils # 15.3 H (1.3-7.7) k/uL APTT 21.3 L (22.0-30.0) sec Potassium (3.5-5.1) mmol/L Chloride (98-107) mmol/L Carbon Dioxide (22-30) mmol/L BUN (7-17) mg/dL Creatinine (0.52-1.04) mg/dL Glucose (74-99) mg/dL POC Glucose (mg/dL) 132 H (70-110) mg/dL Magnesium (1.6-2.3) mg/dL AST (14-36) U/L Alkaline Phosphatase (38-126) U/L Troponin I (0.000-0.034) ng/mL Total Protein (6.3-8.2) g/dL Albumin (3.5-5.0) g/dL Urine Appearance (Clear) Urine Protein (Negative) Urine Blood (Negative) Ur Leukocyte Esterase (Negative) Urine RBC (0-5) /hpf Urine WBC (0-5) /hpf Urine Bacteria (None) /hpf Hyaline Casts (0-2) /lpf Urine Mucus (None) /hpf 11/21/22 11/21/22 11/21/22 Range/Units 19:37 19:37 22:05 WBC (3.8-10.6) k/uL RDW (11.5-15.5) % Neutrophils # (1.3-7.7) k/uL APTT (22.0-30.0) sec Potassium (3.5-5.1) mmol/L Chloride (98-107) mmol/L Carbon Dioxide (22-30) mmol/L BUN 33 H (7-17) mg/dL Creatinine 2.39 H (0.52-1.04) mg/dL Glucose 128 H (74-99) mg/dL POC Glucose (mg/dL) (70-110) mg/dL Magnesium 2.4 H (1.6-2.3) mg/dL AST 176 H (14-36) U/L Alkaline Phosphatase 188 H (38-126) U/L Troponin I 19.600 H* (0.000-0.034) ng/mL Total Protein (6.3-8.2) g/dL Albumin (3.5-5.0) g/dL Urine Appearance Cloudy H (Clear) Urine Protein Trace H (Negative) Urine Blood Large H (Negative) Ur Leukocyte Esterase Large H (Negative) Urine RBC 7 H (0-5) /hpf Urine WBC 40 H (0-5) /hpf Urine Bacteria Many H (None) /hpf Hyaline Casts 13 H (0-2) /lpf Urine Mucus Rare H (None) /hpf 11/21/22 11/22/22 11/22/22 Range/Units 23:51 01:26 04:26 WBC (3.8-10.6) k/uL RDW (11.5-15.5) % Neutrophils # (1.3-7.7) k/uL APTT (22.0-30.0) sec Potassium (3.5-5.1) mmol/L Chloride (98-107) mmol/L Carbon Dioxide (22-30) mmol/L BUN (7-17) mg/dL Creatinine (0.52-1.04) mg/dL Glucose (74-99) mg/dL POC Glucose (mg/dL) 147 H (70-110) mg/dL Magnesium (1.6-2.3) mg/dL AST (14-36) U/L Alkaline Phosphatase (38-126) U/L Troponin I 16.200 H* 14.600 H* (0.000-0.034) ng/mL Total Protein (6.3-8.2) g/dL Albumin (3.5-5.0) g/dL Urine Appearance (Clear) Urine Protein (Negative) Urine Blood (Negative) Ur Leukocyte Esterase (Negative) Urine RBC (0-5) /hpf Urine WBC (0-5) /hpf Urine Bacteria (None) /hpf Hyaline Casts (0-2) /lpf Urine Mucus (None) /hpf 11/22/22 11/22/22 11/22/22 Range/Units 04:26 04:26 04:26 WBC 16.0 H (3.8-10.6) k/uL RDW 15.6 H (11.5-15.5) % Neutrophils # 13.8 H (1.3-7.7) k/uL APTT 58.1 H (22.0-30.0) sec Potassium 3.2 L (3.5-5.1) mmol/L Chloride 109 H (98-107) mmol/L Carbon Dioxide 21 L (22-30) mmol/L BUN 36 H (7-17) mg/dL Creatinine 2.16 H (0.52-1.04) mg/dL Glucose 114 H (74-99) mg/dL POC Glucose (mg/dL) (70-110) mg/dL Magnesium (1.6-2.3) mg/dL AST 146 H (14-36) U/L Alkaline Phosphatase 131 H (38-126) U/L Troponin I (0.000-0.034) ng/mL Total Protein 5.8 L (6.3-8.2) g/dL Albumin 3.2 L (3.5-5.0) g/dL Urine Appearance (Clear) Urine Protein (Negative) Urine Blood (Negative) Ur Leukocyte Esterase (Negative) Urine RBC (0-5) /hpf Urine WBC (0-5) /hpf Urine Bacteria (None) /hpf Hyaline Casts (0-2) /lpf Urine Mucus (None) /hpf Thrombosis Risk Factor Assmnt - Choose All That Apply Any of the Below Risk Factors Present?: Yes Each Factor Represents 1 point: Obesity (BMI >25), Swollen legs (current), Varicose veins Other Risk Factors: Yes Each Risk Factor Represents 3 Points: Age 75 years or older Other congenital or acquired thrombophilia - If yes, enter type in comment: No Thrombosis Risk Factor Assessment Total Risk Factor Score: 6 Thrombosis Risk Factor Assessment Level: High Risk
[2022-11-22] MEDS ORDERED: VERAPAMIL 2.5 MG/ML 2 ML AMP ONE (12:38)
[2022-11-22] MEDS ORDERED: LIDOCAINE 1% INJ 10MG/ML (5 ML VIAL-PF) SQ ONE (13:14)
[2022-11-22] MEDS ORDERED: MIDAZOLAM 2 MG/2 ML VIAL IV ONE (13:14)
[2022-11-22] MEDS ORDERED: IV FLUID CONTINUATION 1,000 ML IV ONE (13:18)
[2022-11-22] MEDS ORDERED: VERAPAMIL SYRINGE (5 MG/10 ML) INTRAARTER ONE (13:18)
[2022-11-22] MEDS ORDERED: RX INFO: IV CONTRAST WAS GIVEN 1 EACH MISC MISCELLANE PRN (13:29)
[2022-11-22] MEDS ORDERED: SODIUM CHLORIDE 0.9% 1,000 ML IV SCH (13:30)
[2022-11-22] MEDS ORDERED: IOPAMIDOL-370 100ML BTL INJ ONE (13:32)
--- NOTE | 2022-11-22 13:32 | P.PCN ---
Date of Procedure: 11/22/22 Operative Findings: CARDIAC CATHETERIZATION PERFORMING PHYSICIAN: Alvin Sharma MD, RPVI PROCEDURE PERFORMED: 1. Selective right and left coronary angiogram 2. Left heart catheterization 3. Ultrasound-guided access of the right radial artery INDICATION: Acute coronary syndrome COMPLICATION: None APPROACH: Right radial artery LEVEL OF SEDATION: Moderate with a sedation length of 12 minutes PROCEDURE DESCRIPTION: After obtaining an informed consent, the patient was brought to cardiac soap slabber. Local anesthesia was performed using lidocaine subcutaneously. The right radial artery was cannulated using Seldinger technique, the guidewire passed easily, following that we advanced a 5-Anguillan sheath dilator assembly, the wire and dilator were removed and sheath was flushed. Following that, 2 mg of verapamil along with 5000 unit heparin were given. Selective right and left coronary angiogram using a 6-Anguillan JR4 and JL 3.5 catheters. Following that we did left heart catheterization using 6-Anguillan pigtail catheter. The procedure was completed there was no complication. SELECTIVE CORONARY ANGIOGRAM: The right coronary artery: The proximal RCA has mild disease only. The mid RCA and distal RCA are angiographically normal. Left main: It is angiographically normal. Bifurcates into an LCx and LAD The left circumflex: Large caliber vessel nondominant vessel appears to have mild disease only. Gives rises into the first and second obtuse marginal branches both appear to have mild disease only. The left anterior descending artery: Large caliber vessel was mild disease in the proximal portion. It gives rises into a diagonal branch appeared to be angiographically normal. HEMODYNAMICS: The LVEDP was 26 mmHg was no significant gradient across aortic valve CONCLUSION: 1. Mild nonobstructive coronary artery disease 2. Normal left-sided filling pressure POSTPROCEDURE MANAGEMENT: Medical treatment and follow-up with the patient
[2022-11-22] MEDS ORDERED: MIDODRINE 5 MG TAB PO PRN (15:20)
--- NOTE | 2022-11-22 15:21 | US ---
EXAMINATION TYPE: US kidneys/renal and bladder DATE OF EXAM: 11/22/2022 COMPARISON: NONE CLINICAL INDICATION: Female, 81 years old with history of femi; FEMI EXAM MEASUREMENTS: Right Kidney: 9.7 x 4.6 x 3.4 cm Left Kidney: 8.2 x 3.3 x 4.5 cm Right Kidney: No hydronephrosis or masses seen Left Kidney: limited views, smaller in size Bladder: not distended There is no evidence for hydronephrosis at this point in time. No nephrolithiasis is seen. No noemi s are identified. IMPRESSION: 1. No evidence for obstructive uropathy. 2. Atrophic left kidney.
[2022-11-22] MEDS ORDERED: FUROSEMIDE 10 MG/ML 2 ML VIAL IV SCH (16:00)
[2022-11-22] MEDS: FUROSEMIDE 10 MG/ML 4 ML VIAL IV SCH (17:24)
[2022-11-22 19:41] LABS: Glucose,Whole Blood 170 mg/dL (70-110)
[2022-11-22] MEDS: MORPHINE SULFATE 4 MG/ML SYRINGE IV PRN (19:48)
[2022-11-22] MEDS: METOPROLOL TARTRATE 25 MG TAB PO SCH (19:54)
[2022-11-22 20:40] LABS: African American GFR (CKD) 24 (>60 ml/min/1.73 sqM); Anion Gap 14 mmol/L; Blood Urea Nitrogen 38 mg/dL (7-17); Calcium 8.8 mg/dL (8.4-10.2); Carbon Dioxide 15 mmol/L (22-30); Chloride 111 mmol/L (98-107); Glucose 188 mg/dL (74-99); Magnesium 2.2 mg/dL (1.6-2.3); Non-African American GFR(CKD) 21 (>60 ml/min/1.73 sqM); Sodium 140 mmol/L (137-145)
[2022-11-22] MEDS ORDERED: PANTOPRAZOLE 40 MG TABLET PO SCH (21:00)
[2022-11-22] MEDS: ATORVASTATIN 10 MG TAB PO SCH (21:31)
[2022-11-22] MEDS: DONEPEZIL 10 MG TAB PO SCH (21:31)
[2022-11-22] MEDS: MONTELUKAST 10 MG TAB PO SCH (21:31)
[2022-11-22] MEDS: HEPARIN SOD,PORK IN 0.45% NACL 25,000 UNIT in 0.45% NACL 1 250ML.BAG IV SCH (22:55)
[2022-11-23] MEDS: ONDANSETRON 4 MG/2 ML VIAL IVP PRN ×2 (02:26→12:19)
[2022-11-23] MEDS ORDERED: AMIODARONE 450 MG in DEXTROSE 5% IN WATER 250 ML IV SCH ×2 (03:15)
[2022-11-23] MEDS: FUROSEMIDE 10 MG/ML 4 ML VIAL IV SCH (04:51)
[2022-11-23] MEDS: MORPHINE SULFATE 4 MG/ML SYRINGE IV PRN ×2 (05:47→20:44)
--- NOTE | 2022-11-23 07:38 | XR ---
EXAMINATION TYPE: XR chest 1V portable DATE OF EXAM: 11/23/2022 7:32 AM COMPARISON: Chest radiographs from 11/21/2022 TECHNIQUE: XR chest 1V portable Frontal view of the chest. CLINICAL INDICATION:Female, 81 years old with history of increased o2 demand; FINDINGS: Lungs/Pleura: Blunting of the costophrenic angles left greater than right. There is scattered airspac e hazy opacities. Pulmonary vascularity: Unremarkable. Heart/mediastinum: Cardiomediastinal silhouette is enlarged and stable. Atherosclerotic calcificatio ns are seen in the aorta. Musculoskeletal: No acute osseous pathology. IMPRESSION: Scattered airspace opacities throughout the lungs with suspected bilateral pleural effusion. Findings not different than prior given differences in technique
[2022-11-23 08:05] LABS: African American GFR (CKD) 19 (>60 ml/min/1.73 sqM); Anion Gap 13 mmol/L; Blood Urea Nitrogen 49 mg/dL (7-17); Calcium 8.9 mg/dL (8.4-10.2); Carbon Dioxide 19 mmol/L (22-30); Chloride 110 mmol/L (98-107); Glucose 109 mg/dL (74-99); Non-African American GFR(CKD) 17 (>60 ml/min/1.73 sqM); Potassium 5.1 mmol/L (3.5-5.1); Sodium 142 mmol/L (137-145)
[2022-11-23] MEDS: CLOPIDOGREL 75 MG TAB PO SCH (09:05)
[2022-11-23] MEDS: ASPIRIN 81 MG PO SCH (09:05)
[2022-11-23] MEDS: PANTOPRAZOLE 40 MG/10 ML VIAL IV SCH (09:05)
[2022-11-23] MEDS ORDERED: HEPARIN SODIUM 1,000 UN/ML (10ML VL) IV PRN (09:40)
[2022-11-23] MEDS ORDERED: HEPARIN SODIUM 1,000 UN/ML (10ML VL) IV ONE (09:40)
--- NOTE | 2022-11-23 09:41 | P.PN ---
Subjective Progress Note Date: 11/23/22 Principal diagnosis: CHF The patient is a pleasant 81-year-old female patient with a past medical history significant for hypertension and dyslipidemia and history of smoking currently she is not a smoker as well as history of underlying dementia was brought to the hospital by her family because she was not feeling well. The patient somewhat is a poor historian but apparently for the last few days she has been experiencing symptoms of chest discomfort. The discomfort was across the chest was no radiation to the arms or neck or shoulders or back. No associated symptoms of dizziness or lightheadedness or any feeling of heart racing or fluttering or presyncope or syncope. She was brought to the emergency department where she underwent further evaluation including an EKG initially showed sinus mechanism was T-wave inversion in lead 1 and aVL and Q wave in V1 to V6. Subsequently she went into arrhythmia to ia appeared to be in atrial fibrillation/atrial flutter and subsequently she was started on amiodarone IV with conversion to sinus mechanism. Earlier today she went into acute respiratory distress related to pulmonary edema where she was given Lasix and morphine. Her pressure has been marginal. An echo is in process to be done. Troponin came in to be abnormal and consistent with acute coronary syndrome. The EKG as described above. The chest x-ray showed findings consistent with pulmonary edema. Creatinine is abnormal and she seems to be in acute on chronic renal failure. No history of coronary artery disease or congestive heart failure or cardiac arrhythmia and the patient never seen by a switch foreman before. 11/23/2022 The patient was seen this morning. She underwent an echocardiogram which revealed severe cardiomyopathy with EF around 25% with mid ventricle and apical hypokinesia. Subsequently heart catheterization revealed mild nonobstructive coronary artery disease with elevated left-sided filling pressure with LVEDP of 26 mmHg. She was seen this morning. She still in respiratory distress and she still hypoxic. The chest x-ray showed bilateral pleural effusion. She stated have mild bilateral lower extremity edema. No symptoms of any chest pain or chest discomfort. No more episodes of any cardiac arrhythmia. Pressure has been within normal limits. Heart rate has been in the 50s. Urine output has been marginal. Kidney function is slightly better this morning. On examination she has diminished breathing sounds bilaterally but I could not hear any rhonchi or crackles. She has mild bilateral lower extremity is edema noted. Assessment Stress induced cardiomyopathy Cardiac arrhythmia in terms of atrial fibrillation/flutter and converted to normal sinus mechanism Heart failure exacerbation secondary to heart failure with reduced ejection fraction Acute hypoxic respiratory failure Paroxysmal atrial fibrillation Plan DC amiodarone IV and start the patient on amiodarone by mouth Continue heparin IV and consider oral anticoagulation down the line Continue aspirin Decrease the dose of beta ana in the light of bradycardia Avoid any MARINA inhibitor at this point in the light of acute renal failure Consider pulmonary consult for further evaluation of pleural effusion and possible pleurocentesis Follow-up with the patient Objective - Vital Signs Vital signs: Vital Signs Temp 97.8 F 11/23/22 05:42 Pulse 60 11/23/22 09:03 Resp 24 11/23/22 09:03 BP 112/64 11/23/22 09:12 Pulse Ox 96 11/23/22 09:03 FiO2 80 11/23/22 09:03 Intake & Output 11/22/22 11/23/22 11/23/22 18:59 06:59 18:59 Intake Total 50 377.448 Output Total 600 250 Balance -550 127.448 Intake: IV 50 30 Invasive Line 1 10 Invasive Line 2 10 Invasive Line 3 10 Intake, IV Titration 347.448 Amount Amiodarone 450 mg In 218.06 Dextrose 5% in Water 250 ml @ 0.5 MG/MIN 16.667 mls/hr IV .Q15H [facility] Rx#: [id number] Heparin Sod,Pork in 0.45% 129.388 NaCl 25,000 unit In 0.45 % NaCl 1 250ml.bag @ 12 UNITS/KG/HR 9.144 mls/hr IV .Q24H [facility] Rx#: [id number] Output: Urine 600 250 Other: Voiding Method Indwelling Catheter Indwelling Catheter Indwelling Catheter - Labs CBC & Chem 7: 11/22/22 04:26 11/23/22 07:04 Labs: Abnormal Lab Results - Last 24 Hours (Table) 11/22/22 11/22/22 11/22/22 Range/Units 08:56 19:32 19:58 Chloride 111 H (98-107) mmol/L Carbon Dioxide 15 L (22-30) mmol/L BUN 38 H (7-17) mg/dL Creatinine 2.19 H (0.52-1.04) mg/dL Glucose 188 H (74-99) mg/dL POC Glucose (mg/dL) 170 H (70-110) mg/dL Troponin I 10.800 H* (0.000-0.034) ng/mL 11/23/22 Range/Units 07:04 Chloride 110 H (98-107) mmol/L Carbon Dioxide 19 L (22-30) mmol/L BUN 49 H (7-17) mg/dL Creatinine 2.63 H (0.52-1.04) mg/dL Glucose 109 H (74-99) mg/dL POC Glucose (mg/dL) (70-110) mg/dL Troponin I (0.000-0.034) ng/mL
[2022-11-23] MEDS: METOPROLOL TARTRATE 12.5 MG TAB PO SCH ×2 (09:51→20:43)
[2022-11-23] MEDS: AMIODARONE 200 MG TAB PO SCH ×2 (09:51→20:43)
--- NOTE | 2022-11-23 10:02 | P.CNNES ---
History of Present Illness Consult date: 11/22/22 Requesting physician: Arnoldo Ding Reason for Consult: Altered mental status History of Present Illness: Patient is a 81-year-old right-handed female came to the hospital by ambulance yesterday at 6:33 PM for altered mental status. Patient states that she came to the hospital because she was not feeling good. She denies any chest pain, although admits to having shortness of breath. Patient states that her son told her to come to the hospital. She denies any falls. Patient states that she has been using walker for many years. She lives by herself but her son lives a few minutes away from her and checks on her frequently. As per EMS flow sheet, when they arrived, family states patient has been having increased memory issues and has been having problems ambulating lately. Family earlier in the day had found her not acting right and EMS came and evaluated the patient but she refused transport and was able to answer all questions appropriately. Patient's son came home and found that she had not taken her medications today and was having trouble getting out of a chair to even use the restroom tonight. Patient agreed to seek medical attention this time and was complaining of a minor headache and some shortness of breath. Patient's blood pressure was 138/62, pulse rate 92, respiration 18, saturation 95% Blood test shows WBC 17.5 hemoglobin 14.0, platelets 259. PT/PTT normal, electrolytes normal, BUN 33, creatinine 2.39. Magnesium 2.4, AST 176, ALT 34, troponin 19.6, UA shows large amount of leukocyte Estrace, 40 WBC, many bacteria, urine drug screen negative, blood alcohol level <10. EKG shows sinus rhythm with short CO interval. Possible left atrial enlargement. Left axis d eviation. Hip/pelvic x-ray showed hip arthroplasty with hardware intact and in appropriate alignment. No acute fracture. Chest x-ray showed cardiomegaly, pulmonary vascular congestion and bilateral pleural effusion. Correlate with BNP for congestive heart failure. CT head revealed no acute intracranial process. Nonspecific white matter changes, likely secondary to chronic small vessel ischemic disease. No evidence of cervical spine fracture. Moderate multilevel degenerative disc disease. I personally reviewed CT head, agree with the findings. No acute process. Patient denies diabetes, does not know if she has hypertension. Patient has smoked 1 pack per day from age 20, and she quit 20 years ago at age 61, therefore 40 pack years. She drinks alcohol occasionally. Review of Systems Constitutional: Denies chills, Denies fever Eyes: denies blurred vision, denies diplopia, denies pain Ears: deny: decreased hearing, tinnitus Ears, nose, mouth and throat: Denies headache, Denies sore throat Cardiovascular: Reports shortness of breath, Denies chest pain Respiratory: Reports cough, Reports excessive sputum Gastrointestinal: Denies abdominal pain, Denies diarrhea, Denies nausea, Denies vomiting Genitourinary: Denies dysuria, Denies hematuria Musculoskeletal: Reports low back pain, Denies myalgias, Denies neck pain Integumentary: Denies pruritus, Denies rash Neurological: Denies change in speech, Denies double vision, Denies loss of vision, Denies seizures, Denies sensory deficit, Denies weakness Psychiatric: Denies anxiety, Denies depression Endocrine: Denies fatigue, Denies weight change Hematologic/Lymphatic: Denies easy bleeding, Denies easy bruising Past Medical History Past Medical History: Eye Disorder, GERD/Reflux, Hyperlipidemia, Osteoarthritis (OA) Additional Past Medical History / Comment(s): macular degeneration, hx migraine s, diverticulits, varicose veins, SOB on exertion, hx hiatal hernia, "leaky bladder" History of Any Multi-Drug Resistant Organisms: None Reported Past Surgical History: Appendectomy, Bowel Resection, Hernia Repair, Hysterectomy, Orthopedic Surgery Additional Past Surgical History / Comment(s): hardeep cataracts, rt knee arthro scopy, Babak Fundoplasty. TOTAL RT HIP 02/22/18, total right knee arthroplasty 06/21/2018 Past Anesthesia/Blood Transfusion Reactions: No Reported Reaction Past Psychological History: No Psychological Hx Reported Smoking Status: Former smoker Past Alcohol Use History: Occasional Additional Past Alcohol Use History / Comment(s): quit smoking 2007, smoked 40 years, 1 pkg a day Past Drug Use History: None Reported - Past Family History Father Family Medical History: Cancer Additional Family Medical History / Comment(s): LEUKEMIA Mother Family Medical History: Deep Vein Thrombosis (DVT) Brother(s) Family Medical History: Cancer Additional Family Medical History / Comment(s): 3 BROTHERS HAD CANCER Son(s) Family Medical History: Deep Vein Thrombosis (DVT) Medications and Allergies Home Medications Medication Instructions Recorded Confirmed Type Simvastatin [Zocor] 10 mg PO HS 11/14/16 11/21/22 History Pantoprazole Sodium [Protonix] 40 mg PO HS 02/12/18 11/21/22 History Donepezil HCl [Aricept] 10 mg PO HS 11/21/22 11/21/22 History Montelukast Sodium 10 mg PO HS 11/21/22 11/21/22 History Torsemide [Demadex] 20 mg PO BID 11/21/22 11/21/22 History cloNIDine HCL 0.2 mg PO BID 11/21/22 11/21/22 History Allergies Allergy/AdvReac Type Severity Reaction Status Date / Time adhesive tape Allergy Itching Verified 11/21/22 22:04 Penicillins AdvReac Severe Diarrhea Verified 11/21/22 22:04 terbinafine [From Lamisil] AdvReac Severe Diarrhea Verified 11/21/22 22:04 Physical Examination - Vital Signs Vital Signs: Vital Signs Temp Pulse Pulse Pulse Resp BP BP 11/22/22 11:13 98.7 F 75 20 97/63 11/22/22 08:33 11/22/22 08:30 11/22/22 07:47 145 H 20 102/73 11/22/22 07:40 147 H 20 104/65 11/22/22 07:30 170 H 36 H 118/70 11/22/22 04:00 98.3 F 80 18 93/66 11/22/22 02:10 157 H 92/68 11/22/22 01:46 174 H 112/81 11/22/22 01:40 170 H 102/71 11/22/22 01:18 98.3 F 189 H 22 121/82 11/21/22 23:10 98.1 F 83 16 128/65 11/21/22 22:49 98.3 F 11/21/22 22:30 78 20 114/66 11/21/22 22:00 79 22 131/75 11/21/22 21:30 80 20 127/82 11/21/22 21:00 82 22 125/78 11/21/22 20:30 78 20 128/72 11/21/22 20:00 87 20 117/79 11/21/22 19:30 118/69 11/21/22 19:00 117/63 11/21/22 18:47 98.6 F 87 16 117/63 11/21/22 18:42 Pulse Ox FiO2 11/22/22 11:13 97 11/22/22 08:33 96 11/22/22 08:30 99 11/22/22 07:47 97 100 11/22/22 07:40 97 11/22/22 07:30 82 L 11/22/22 04:00 97 11/22/22 02:10 96 11/22/22 01:46 96 11/22/22 01:40 96 11/22/22 01:18 95 11/21/22 23:10 98 11/21/22 22:49 11/21/22 22:30 11/21/22 22:00 11/21/22 21:30 11/21/22 21:00 97 11/21/22 20:30 97 11/21/22 20:00 96 11/21/22 19:30 96 11/21/22 19:00 95 11/21/22 18:47 96 11/21/22 18:42 94 L Intake and Output 11/21/22 11/22/22 11/22/22 22:59 06:59 14:59 Intake Total 88.58 Balance 88.58 Intake: IV 20 Invasive Line 1 10 Invasive Line 2 10 Intake, IV Titration 68.58 Amount Heparin Sod,Pork in 0.45% 68.58 NaCl 25,000 unit In 0.45 % NaCl 1 250ml.bag @ 12 UNITS/KG/HR 9.144 mls/hr IV .Q24H [facility] Rx#: [id number] Other: Voiding Method Bedpan Indwelling Catheter # Voids 1 Weight 76.204 kg 76.204 kg Patient is an elderly female, very pleasant, in no acute distress. Patient is alert awake, states it is December and the year is 2020. She knows that it is spring season going into summer. She states that she is in "[facility]", and that she is in [facility] in [place]. She knows her for date of stating that she is going to be almost 82 years of age. Knows name of the current president. Speech and language functions are normal. Patient can name and repeat very well. No aphasia or dysarthria. Attention, concentration and fund of knowledge is adequate. On cranial nerve examination, pupils are equal, round and reacting to light, visual tipton are full on confrontation, with no neglect on double simultaneous depression. Extraocular muscles are intact with no nystagmus. Face is symmetric, tongue protrudes to the midline. Palatal elevation and sensation normal, hearing and shoulder shrug normal, facial sensation normal. On muscle strength testing, there is no pronator drift and the strength is normal in arms and legs distally and proximally. Deep tendon reflexes are symmetric 2 with the biceps, 2 brachioradialis, 0 at the right knee, 2 on the left, 1 at the ankles bilaterally and plantars are with drawal on either side. Patient has history of right knee surgery. Sensory to touch is equal with no neglect on double simultaneous stimulation. Cerebellar function showed no ataxia for [id number] testing. No dysdiadochokinesia. No ataxia for [id number] testing on either side. Tone and bulk of muscles normal. Gait deferred.. On general examination, there is no carotid bruit or murmur, S1-S2 audible. Chest is clear on consultation. Abdomen is soft nontender. No organomegaly, bowel sounds present. Peripheral pulses are present. No edema. Results - Laboratory Findings CBC and BMP: 11/22/22 04:26 11/23/22 07:04 Abnormal Lab Findings: Abnormal Labs 11/21/22 11/21/22 11/21/22 19:31 19:37 19:37 WBC 17.5 H RDW Neutrophils # 15.3 H APTT 21.3 L Potassium Chloride Carbon Dioxide BUN Creatinine Glucose POC Glucose (mg/dL) 132 H Magnesium AST Alkaline Phosphatase Troponin I Total Protein Albumin Urine Appearance Urine Protein Urine Blood Ur Leukocyte Esterase Urine RBC Urine WBC Urine Bacteria Hyaline Casts Urine Mucus 11/21/22 11/21/22 11/21/22 19:37 19:37 22:05 WBC RDW Neutrophils # APTT Potassium Chloride Carbon Dioxide BUN 33 H Creatinine 2.39 H Glucose 128 H POC Glucose (mg/dL) Magnesium 2.4 H AST 176 H Alkaline Phosphatase 188 H Troponin I 19.600 H* Total Protein Albumin Urine Appearance Cloudy H Urine Protein Trace H Urine Blood Large H Ur Leukocyte Esterase Large H Urine RBC 7 H Urine WBC 40 H Urine Bacteria Many H Hyaline Casts 13 H Urine Mucus Rare H 11/21/22 11/22/22 11/22/22 23:51 01:26 04:26 WBC RDW Neutrophils # APTT Potassium Chloride Carbon Dioxide BUN Creatinine Glucose POC Glucose (mg/dL) 147 H Magnesium AST Alkaline Phosphatase Troponin I 16.200 H* 14.600 H* Total Protein Albumin Urine Appearance Urine Protein Urine Blood Ur Leukocyte Esterase Urine RBC Urine WBC Urine Bacteria Hyaline Casts Urine Mucus 11/22/22 11/22/22 11/22/22 04:26 04:26 04:26 WBC 16.0 H RDW 15.6 H Neutrophils # 13.8 H APTT 58.1 H Potassium 3.2 L Chloride 109 H Carbon Dioxide 21 L BUN 36 H Creatinine 2.16 H Glucose 114 H POC Glucose (mg/dL) Magnesium AST 146 H Alkaline Phosphatase 131 H Troponin I Total Protein 5.8 L Albumin 3.2 L Urine Appearance Urine Protein Urine Blood Ur Leukocyte Esterase Urine RBC Urine WBC Urine Bacteria Hyaline Casts Urine Mucus 11/22/22 08:56 WBC RDW Neutrophils # APTT Potassium Chloride Carbon Dioxide BUN Creatinine Glucose POC Glucose (mg/dL) Magnesium AST Alkaline Phosphatase Troponin I 10.800 H* Total Protein Albumin Urine Appearance Urine Protein Urine Blood Ur Leukocyte Esterase Urine RBC Urine WBC Urine Bacteria Hyaline Casts Urine Mucus Assessment and Plan Assessment: * Altered mental status, likely due to mild metabolic encephalopathy, likely due to reasons as mentioned below. * Acute non-STEMI * Acute on chronic renal insufficiency * Acute UTI * Hyperlipidemia * History of B12 and folate deficiency * X tobacco use Plan: * Patient has mild metabolic encephalopathy due to multiple conditions as mentioned above. Her examination is nonfocal. No other neurological workup indicated. Her mentation will improve, once above metabolic conditions comes under control. * Patient has history of B12 deficiency with B12 234 on 11/25/2019. We will recheck B12, folate. Check A1c, lipid panel and TSH. * 2-D echo revealed impaired left ventricular function with EF around 20-25%. Moderate MR. Severely increased left atrial volume. Severe pulmonary hypertension. Moderate MR. Moderate to severe TR. * Other management as per cardiology, and IM. * Neurology will follow clinically. Thank you for the consult.
[2022-11-23] MEDS: HEPARIN SOD,PORK IN 0.45% NACL 25,000 UNIT in 0.45% NACL 1 250ML.BAG IV SCH (10:09)
[2022-11-23] MEDS: METOPROLOL TARTRATE 25 MG TAB PO SCH (10:43)
[2022-11-23 10:51] LABS: Basophils % (A) 0 %; Eosinophils # (A) 0.1 k/uL (0-0.7); Eosinophils % (A) 1 %; HCT 44.8 % (34.0-46.0); HGB 14.4 gm/dL (11.4-16.0); Lymphocytes # (A) 1.5 k/uL (1.0-4.8); Lymphocytes % (A) 10 %; MCH 29.1 pg (25.0-35.0); MCHC 32.1 g/dL (31.0-37.0); MCV 90.6 fL (80.0-100.0); Mean Platelet Volume 8.8; Monocytes # (A) 0.8 k/uL (0-1.0); Monocytes % (A) 6 %; Neutrophils # (A) 12.5 k/uL (1.3-7.7); Neutrophils % (A) 83 %; Platelet Count 193 k/uL (150-450); RBC 4.95 m/uL (3.80-5.40); RDW 15.5 % (11.5-15.5)
[2022-11-23 10:52] LABS: INR 1.1 (<1.2); Prothrombin Time 11.8 sec (9.0-12.0)
[2022-11-23 11:21] LABS: Partial Thromboplastin Time 21.8 sec (22.0-30.0)
--- NOTE | 2022-11-23 12:44 | P.PN ---
Subjective Patient is seen for follow-up for acute kidney injury mostly cardiorenal. Patient was taken for cardiac catheterization yesterday however she was not found to have any significant obstructive disease. This morning patient became short of breath again and was placed on BiPAP. Blood pressure is slightly improved to 112-113 mmHg. Urine output charted at 850 ML for 24 hours. Serum creatinine at 2.6 mg/dL today Complaining of nausea Objective - Vital Signs Vital signs: Vital Signs Temp 97.5 F L 11/23/22 11:58 Pulse 53 L 11/23/22 11:58 Resp 26 H 11/23/22 11:58 BP 118/78 11/23/22 11:58 Pulse Ox 91 L 11/23/22 12:15 FiO2 60 11/23/22 12:00 Intake & Output 11/22/22 11/23/22 11/23/22 18:59 06:59 18:59 Intake Total 50 377.448 Output Total 600 250 Balance -550 127.448 Intake: IV 50 30 Invasive Line 1 10 Invasive Line 2 10 Invasive Line 3 10 Intake, IV Titration 347.448 Amount Amiodarone 450 mg In 218.06 Dextrose 5% in Water 250 ml @ 0.5 MG/MIN 16.667 mls/hr IV .Q15H [facility] Rx#: [id number] Heparin Sod,Pork in 0.45% 129.388 NaCl 25,000 unit In 0.45 % NaCl 1 250ml.bag @ 12 UNITS/KG/HR 9.144 mls/hr IV .Q24H [facility] Rx#: [id number] Output: Urine 600 250 Other: Voiding Method Indwelling Catheter Indwelling Catheter Indwelling Catheter - Exam Awake, currently on BiPAP Examination of the heart S1 and S2 Examination of the lungs bilateral breath sounds are heard, decrease at the bases Abdomen is soft nontender Examination of lower extremities shows trace edema bilaterally KEG RAISER exam grossly intact - Labs CBC & Chem 7: 11/23/22 10:06 11/23/22 07:04 Labs: Abnormal Lab Results - Last 24 Hours (Table) 11/22/22 11/22/22 11/23/22 Range/Units 19:32 19:58 07:04 WBC (3.8-10.6) k/uL Neutrophils # (1.3-7.7) k/uL APTT (22.0-30.0) sec Chloride 111 H 110 H (98-107) mmol/L Carbon Dioxide 15 L 19 L (22-30) mmol/L BUN 38 H 49 H (7-17) mg/dL Creatinine 2.19 H 2.63 H (0.52-1.04) mg/dL Glucose 188 H 109 H (74-99) mg/dL POC Glucose (mg/dL) 170 H (70-110) mg/dL 11/23/22 11/23/22 Range/Units 10:06 10:06 WBC 15.0 H (3.8-10.6) k/uL Neutrophils # 12.5 H (1.3-7.7) k/uL APTT 21.8 L (22.0-30.0) sec Chloride (98-107) mmol/L Carbon Dioxide (22-30) mmol/L BUN (7-17) mg/dL Creatinine (0.52-1.04) mg/dL Glucose (74-99) mg/dL POC Glucose (mg/dL) (70-110) mg/dL Assessment and Plan Assessment: 1. Acute kidney injury, cardiorenal as well as component of ATN from hypotension/hypoperfusion. Currently with indwelling Yip catheter. Status post cardiac catheterization on 11/22/2022 No nephrotoxic agents on board 2. Acute non-ST elevation ID 3. A. fib with RVR maintained on amiodarone drip. Patient had converted to sinus rhythm earlier 4. Hypokalemia 5. Acute hypoxic respiratory failure secondary to CHF 6. CHF, ejection fraction not known yet Plan: Patient remains with significant respiratory distress and currently needing BiPAP. We'll switch to Lasix drip. Blood pressure is slightly improved and I will continue with the midodrine. Continue to avoid any other nephrotoxic agents. Patient may need to start renal replacement therapy if urine output remains low. Expect renal function to worsen from contrast-induced nephropathy as well over the next few days.
--- NOTE | 2022-11-23 12:49 | P.PN ---
Subjective Progress Note Date: 11/23/22 patient is a is a 81-year-old lady with past medical history significant for hypertension, dementia, GERD who presented to the ER because of altered mental status. According to family patient was not feeling herself for the last couple of days. Family noticed a significant decline in cognition and how she was acting in the last 24 hours. Family also noticed that there was some facial droop and weakness earlier in the day that resolved. Family also stated that the patient was complaining of chest pain, it was like a discomfort present across the chest, there was no complain of any radiation or any aggravating or relieving factors associated with this chest pain. Because of altered mental status patient was brought to the ER Initial lab work done in the ER showed WBC 17.5, hemoglobin 14, platelet count 259, sodium 142, potassium 3.9, chloride 109, BUN 36, creatinine 2.39, troponin 19.6 CT head and cervical spine done showed no acute intracranial process, no acute cervical spine fracture Patient was admitted to medicine service for further evaluation and treatment 11/23. Patient seen and examined. Patient had echocardiogram done yesterday which revealed severe cardiomyopathy with EF around 25% with mid ventricle and apical hypokinesia. Subsequently heart catheterization revealed mild nonobstructive coronary artery disease. Currently in respiratory distress on BiPAP with FiO2 60%. Discussed with her in detail regarding her CODE STATUS, at this time she does not want any resuscitation and doesn't want to be on a ventilator, code status was changed to DO NOT RESUSCITATE limited REVIEW OF SYSTEMS: CONSTITUTIONAL: No fever, no malaise,. CARDIOVASCULAR: No chest pain, no palpitations, no syncope. PULMONARY: As mentioned above GASTROINTESTINAL: Patient having nausea and vomiting NEUROLOGICAL: No headaches, no weakness, PHYSICAL EXAMINATION: GENERAL: The patient is alert and oriented x3, currently respiratory distress, on BiPAP HEENT: Pupils are round and equally reacting to light. EOMI. No scleral icterus. No conjunctival pallor. Normocephalic, atraumatic. No pharyngeal erythema. No thyromegaly. CARDIOVASCULAR: S1 and S2 present. No murmurs, rubs, or gallops. PULMONARY: Coarse breath sounds bilaterally, tachypneic, bilateral crackles a udible ABDOMEN: Soft, nontender, nondistended, normoactive bowel sounds. No palpable organomegaly. MUSCULOSKELETAL: No joint swelling or deformity. EXTREMITIES: No cyanosis, clubbing, or pedal edema. NEUROLOGICAL: Gross neurological examination did not reveal any focal deficits. SKIN: No rashes. Assessment and plan Acute metabolic encephalopathy Acute hypoxic respiratory failure Paroxysmal atrial flutter/fibrillation converted to normal sinus rhythm Non-ST elevation TN Acute systolic CHF Stress-induced cardiomyopathy Hypokalemia Acute kidney injury Bilateral pleural effusion Monitor vital signs Monitor CBC Monitor CMP Continue telemetry monitoring Continue amiodarone, switch from IV to oral dosing Strict I's and O's, daily weights Started on Lasix drip Continue pharmacy dose heparin echocardiogram revealed severe cardiomyopathy with EF around 25% with mid ventricle and apical hypokinesia. heart catheterization on 11/22 revealed mild nonobstructive coronary artery di sease Avoid nephrotoxic agents Follow-up in nephrology recommendations Follow-up on cardiology recommendations Consult pulmonary for bilateral pleural effusions CODE STATUS discussed, patient wants to be donot resuscitate, does not want intubation. Objective - Vital Signs Vital signs: Vital Signs Temp 97.8 F 11/23/22 05:42 Pulse 60 11/23/22 09:03 Resp 24 11/23/22 09:03 BP 112/64 11/23/22 09:12 Pulse Ox 96 11/23/22 09:03 FiO2 80 11/23/22 09:03 Intake & Output 11/22/22 11/23/22 11/23/22 18:59 06:59 18:59 Intake Total 50 377.448 Output Total 600 250 Balance -550 127.448 Intake: IV 50 30 Invasive Line 1 10 Invasive Line 2 10 Invasive Line 3 10 Intake, IV Titration 347.448 Amount Amiodarone 450 mg In 218.06 Dextrose 5% in Water 250 ml @ 0.5 MG/MIN 16.667 mls/hr IV .Q15H [facility] Rx#: [id number] Heparin Sod,Pork in 0.45% 129.388 NaCl 25,000 unit In 0.45 % NaCl 1 250ml.bag @ 12 UNITS/KG/HR 9.144 mls/hr IV .Q24H [facility] Rx#: [id number] Output: Urine 600 250 Other: Voiding Method Indwelling Catheter Indwelling Catheter Indwelling Catheter - Labs CBC & Chem 7: 11/23/22 10:06 11/23/22 07:04 Labs: Abnormal Lab Results - Last 24 Hours (Table) 0611/22/22 11/22/22 Range/Units 08:56 19:32 19:58 Chloride 111 H (98-107) mmol/L Carbon Dioxide 15 L (22-30) mmol/L BUN 38 H (7-17) mg/dL Creatinine 2.19 H (0.52-1.04) mg/dL Glucose 188 H (74-99) mg/dL POC Glucose (mg/dL) 170 H (70-110) mg/dL Troponin I 10.800 H* (0.000-0.034) ng/mL 11/23/22 Range/Units 07:04 Chloride 110 H (98-107) mmol/L Carbon Dioxide 19 L (22-30) mmol/L BUN 49 H (7-17) mg/dL Creatinine 2.63 H (0.52-1.04) mg/dL Glucose 109 H (74-99) mg/dL POC Glucose (mg/dL) (70-110) mg/dL Troponin I (0.000-0.034) ng/mL
[2022-11-23] MEDS: FUROSEMIDE 100 MG in SODIUM CHLORIDE 0.9% 90 ML IV SCH ×2 (13:12→22:00)
[2022-11-23] MEDS: MONTELUKAST 10 MG TAB PO SCH (20:43)
[2022-11-23] MEDS: ATORVASTATIN 10 MG TAB PO SCH (20:43)
[2022-11-23] MEDS: DONEPEZIL 10 MG TAB PO SCH (20:43)
[2022-11-24] MEDS: MORPHINE SULFATE 4 MG/ML SYRINGE IV PRN (02:02)
--- NOTE | 2022-11-24 02:34 | P.CNPUL ---
History of Present Illness Consult date: 11/24/22 Requesting physician: Evan Gleason Reason for consult: dyspnea Chief complaint: Shortness of breath History of present illness: I am seeing this patient in new consultation today 11/24/2022 for acute hypoxemic respiratory failure related to acute CHF exacerbation. Patient is a 81-year-old white female with past medical history significant for hypertension, hyperlipidemia, prior bowel resection, diverticulitis, and has a remote history of smoking. The patient is somewhat a poor historian, but reportedly originally presented to the emergency room back on November 21 for altered mental status and weakness. Chest x-ray on arrival was consistent with CHF exacerbation. Follow- up echocardiogram showed a severely impaired left ventricular ejection fraction around 20-25% with moderate mitral regurgitation. Troponins were also elevated on arrival at 19.6, and have trended down to 10.8. Patient did go to the [facility] on November 22, which showed mild nonobstructive coronary artery disease. No PCI or intervention was performed. Patient's nurse also reports the patient was in A. fib/A flutter at some point during this admission. Patient was on IV amiodarone, which has been switched to by mouth. ECG that is available showed normal sinus rhythm without any acute ischemic changes. Patient is currently sitting up in bed. She is oriented to person, place, time. She is confused, however, and asked me how to get to bed, while already in bed. She is on 15 L high flow nasal cannula, fairly comfortable, in no acute distress. Most recent chest x-ray shows scattered airspace opacities and suspected bilateral pleural effusions. NT proBNP from today was elevated at 24,600. She is currently on Lasix infusing at 10 mg per hour. She is also on a low intensity heparin infusion per protocol. She denies any cough, fever, chest pain. She does admit to shortness breath, lower extremity swelling and orthopnea. Denies any palpitations, PND. CT of the brain and CT spine without contrast on arrival showed no acute intracranial process or evidence of fractures. Most recent CBC from yesterday shows a WBC count of 15, hemoglobin 14.4, hematocrit 45, platelets 193. Most recent BMP shows sodium 142, potassium 5.1, chloride 110, serum CO2 19, BUN 49, creatinine up to 2.63, glucose 109. There is a component of acute kidney injury, likely related to cardiorenal effect. Urinalysis was positive for leukocyte esterase and many bacteria. Patient is covered on IV Rocephin. Vital signs are stable at this time. Patient is a DO NOT INTUBATE. Review of Systems REVIEW OF SYSTEMS: CONSTITUTIONAL: Denies any recent significant weight loss or weight gain. EYES: Denies change in vision. EARS, NOSE, MOUTH, THROAT: Denies headaches, denies sore throat. CARDIOVASCULAR: Denies chest pain, palpitations or syncopal episodes. RESPIRATORY: See HPI GASTROINTESTINAL: Denies change in appetite, abdominal pain, nausea and vomiting, or diarrhea GENITOURINARY: Denies hematuria, denies infections. MUSKULOSKELETAL: Denies pain, denies swelling. INTEGUMENTARY: Denies rash, denies eczema. NEUROLOGICAL: Denies recent memory loss, no recent seizure activity. PSYCHIATRIC: Denies anxiety, denies depression. HEMATOLOGIC/LYMPHATIC: Denies anemia, denies enlarged lymph node Past Medical History Past Medical History: Eye Disorder, GERD/Reflux, Hyperlipidemia, Osteoarthritis (OA) Additional Past Medical History / Comment(s): macular degeneration, hx migraines, diverticulits, varicose veins, SOB on exertion, hx hiatal hernia, "leaky bladder" History of Any Multi-Drug Resistant Organisms: None Reported Past Surgical History: Appendectomy, Bowel Resection, Hernia Repair, Hysterectomy, Orthopedic Surgery Additional Past Surgical History / Comment(s): hardeep cataracts, rt knee arthroscopy, Babak Fundoplasty. TOTAL RT HIP 02/22/18, total right knee arthroplasty 06/21/2018 Past Anesthesia/Blood Transfusion Reactions: No Reported Reaction Past Psychological History: No Psychological Hx Reported Smoking Status: Former smoker Past Alcohol Use History: Occasional Additional Past Alcohol Use History / Comment(s): quit smoking 2007, smoked 40 years, 1 pkg a day Past Drug Use History: None Reported - Past Family History Father Family Medical History: Cancer Additional Family Medical History / Comment(s): LEUKEMIA Mother Family Medical History: Deep Vein Thrombosis (DVT) Brother(s) Family Medical History: Cancer Additional Family Medical History / Comment(s): 3 BROTHERS HAD CANCER Son(s) Family Medical History: Deep Vein Thrombosis (DVT) Medications and Allergies Home Medications Medication Instructions Recorded Confirmed Type Simvastatin [Zocor] 10 mg PO HS 11/14/16 11/21/22 History Pantoprazole Sodium [Protonix] 40 mg PO HS 02/12/18 11/21/22 History Donepezil HCl [Aricept] 10 mg PO HS 11/21/22 11/21/22 History Montelukast Sodium 10 mg PO HS 11/21/22 11/21/22 History Torsemide [Demadex] 20 mg PO BID 11/21/22 11/21/22 History cloNIDine HCL 0.2 mg PO BID 11/21/22 11/21/22 History Allergies Allergy/AdvReac Type Severity Reaction Status Date / Time adhesive tape Allergy Itching Verified 11/21/22 22:04 Penicillins AdvReac Severe Diarrhea Verified 11/21/22 22:04 terbinafine [From Lamisil] AdvReac Severe Diarrhea Verified 11/21/22 22:04 Physical Exam Vitals: Vital Signs Temp Pulse Pulse Resp BP BP Pulse Ox 11/24/22 00:00 98.8 F 68 22 136/80 94 L 11/23/22 21:08 96 11/23/22 20:00 97.7 F 68 20 127/79 95 11/23/22 16:26 97.8 F 61 24 126/77 93 L 11/23/22 12:15 91 L 11/23/22 12:00 11/23/22 11:58 97.5 F L 53 L 26 H 118/78 97 11/23/22 09:12 112/64 11/23/22 09:03 60 24 96 11/23/22 08:48 11/23/22 07:41 57 L 26 H 111/69 11/23/22 05:45 29 H 95 11/23/22 05:42 97.8 F 60 30 H 110/73 88 L 11/23/22 05:40 11/23/22 04:43 97.9 F 58 L 23 110/70 95 11/23/22 03:48 11/23/22 02:53 59 L 20 113/76 92 L FiO2 11/24/22 00:00 11/23/22 21:08 11/23/22 20:00 11/23/22 16:26 11/23/22 12:15 11/23/22 12:00 60 11/23/22 11:58 80 11/23/22 09:12 11/23/22 09:03 80 11/23/22 08:48 80 11/23/22 07:41 100 11/23/22 05:45 100 11/23/22 05:42 80 11/23/22 05:40 100 11/23/22 04:43 80 11/23/22 03:48 80 11/23/22 02:53 Intake and Output 11/23/22 11/23/22 11/24/22 14:59 22:59 06:59 Intake Total 280.06 Output Total 300 Balance -19.94 Intake: Intake, IV Titration 280.06 Amount Amiodarone 450 mg In 49.8 Dextrose 5% in Water 250 ml @ 0.5 MG/MIN 16.667 mls/hr IV .Q15H [facility] Rx#: [id number] Furosemide 100 mg In 148 Sodium Chloride 0.9% 90 ml @ 10 MG/HR 10 mls/hr IV .Q10H [facility] Rx#: [id number] Heparin Sod,Pork in 0.45% 82.26 NaCl 25,000 unit In 0.45 % NaCl 1 250ml.bag @ 12 UNITS/KG/HR 9.144 mls/hr IV .Q24H [facility] Rx#: [id number] Output: Urine 300 Other: Voiding Method Indwelling Catheter Indwelling Catheter GENERAL EXAM: Alert, 81-year-old white female, fairly comfortable in no apparent distress. HEAD: Normocephalic and atraumatic EYES: Normal reaction of pupils, equal size. NOSE: Clear with pink turbinates. THROAT: No erythema or exudates. NECK: No masses, no JVD. CHEST: No chest wall deformity. LUNGS: Equal air entry with bibasilar inspiratory crackles. No wheezes or rhonchi. On 15 L high flow cannula. No conversational dyspnea or accessory muscle use.. CVS: S1 and S2 normal with no audible murmur, regular rhythm. No extra heart sounds ABDOMEN: No hepatosplenomegaly, active bowel sounds, no guarding or rigidity. SPINE: No scoliosis or deformity SKIN: No rashes CENTRAL NERVOUS SYSTEM: No focal deficits, tone is normal in all 4 extremities. EXTREMITIES: There is 1-2+ bilateral lower extremity edema. No clubbing, or cyanosis. Peripheral pulses are intact. Results - Laboratory Findings CBC and BMP: 11/24/22 07:28 11/24/22 07:28 PT/INR, D-dimer PT 11.8 sec (9.0-12.0) 11/23/22 10:06 INR 1.1 (<1.2) 11/23/22 10:06 Abnormal lab findings: Abnormal Labs 11/21/22 11/21/22 11/21/22 19:31 19:37 19:37 WBC 17.5 H RDW Neutrophils # 15.3 H APTT 21.3 L Potassium Chloride Carbon Dioxide BUN Creatinine Glucose POC Glucose (mg/dL) 132 H Magnesium AST Alkaline Phosphatase Troponin I Total Protein Albumin Urine Appearance Urine Protein Urine Blood Ur Leukocyte Esterase Urine RBC Urine WBC Urine Bacteria Hyaline Casts Urine Mucus 11/21/22 11/21/22 11/21/22 19:37 19:37 22:05 WBC RDW Neutrophils # APTT Potassium Chloride Carbon Dioxide BUN 33 H Creatinine 2.39 H Glucose 128 H POC Glucose (mg/dL) Magnesium 2.4 H AST 176 H Alkaline Phosphatase 188 H Troponin I 19.600 H* Total Protein Albumin Urine Appearance Cloudy H Urine Protein Trace H Urine Blood Large H Ur Leukocyte Esterase Large H Urine RBC 7 H Urine WBC 40 H Urine Bacteria Many H Hyaline Casts 13 H Urine Mucus Rare H 11/21/22 11/22/22 11/22/22 23:51 01:26 04:26 WBC RDW Neutrophils # APTT Potassium Chloride Carbon Dioxide BUN Creatinine Glucose POC Glucose (mg/dL) 147 H Magnesium AST Alkaline Phosphatase Troponin I 16.200 H* 14.600 H* Total Protein Albumin Urine Appearance Urine Protein Urine Blood Ur Leukocyte Esterase Urine RBC Urine WBC Urine Bacteria Hyaline Casts Urine Mucus 11/22/22 11/22/22 11/22/22 04:26 04:26 04:26 WBC 16.0 H RDW 15.6 H Neutrophils # 13.8 H APTT 58.1 H Potassium 3.2 L Chloride 109 H Carbon Dioxide 21 L BUN 36 H Creatinine 2.16 H Glucose 114 H POC Glucose (mg/dL) Magnesium AST 146 H Alkaline Phosphatase 131 H Troponin I Total Protein 5.8 L Albumin 3.2 L Urine Appearance Urine Protein Urine Blood Ur Leukocyte Esterase Urine RBC Urine WBC Urine Bacteria Hyaline Casts Urine Mucus 11/22/22 11/22/22 11/22/22 08:56 19:32 19:58 WBC RDW Neutrophils # APTT Potassium Chloride 111 H Carbon Dioxide 15 L BUN 38 H Creatinine 2.19 H Glucose 188 H POC Glucose (mg/dL) 170 H Magnesium AST Alkaline Phosphatase Troponin I 10.800 H* Total Protein Albumin Urine Appearance Urine Protein Urine Blood Ur Leukocyte Esterase Urine RBC Urine WBC Urine Bacteria Hyaline Casts Urine Mucus 11/23/22 11/23/22 11/23/22 07:04 10:06 10:06 WBC 15.0 H RDW Neutrophils # 12.5 H APTT 21.8 L Potassium Chloride 110 H Carbon Dioxide 19 L BUN 49 H Creatinine 2.63 H Glucose 109 H POC Glucose (mg/dL) Magnesium AST Alkaline Phosphatase Troponin I Total Protein Albumin Urine Appearance Urine Protein Urine Blood Ur Leukocyte Esterase Urine RBC Urine WBC Urine Bacteria Hyaline Casts Urine Mucus 11/23/22 15:39 WBC RDW Neutrophils # APTT 77.9 H Potassium Chloride Carbon Dioxide BUN Creatinine Glucose POC Glucose (mg/dL) Magnesium AST Alkaline Phosphatase Troponin I Total Protein Albumin Urine Appearance Urine Protein Urine Blood Ur Leukocyte Esterase Urine RBC Urine WBC Urine Bacteria Hyaline Casts Urine Mucus - Diagnostic Findings Chest x-ray: image reviewed Assessment and Plan Assessment: Acute exacerbation of systolic congestive heart failure, echocardiogram done on this admission shows a severely reduced ejection fraction of 20-25%, along with moderate mitral valve regurgitation. Currently on Lasix infusion. Acute hypoxemic respiratory failure, secondary to above, currently on 15 L high flow nasal cannula. Most recent chest x-ray shows cardiomegaly, suspected small to moderate bilateral pleural effusions with the left being greater than the right, and scattered over airspace opacities. Elevated troponins and suspected non-ST elevation ID, status post cardiac catheterization which showed mild nonobstructive coronary artery disease. PCI intervention was performed Suspected atrial fibrillation/A flutter, resolved currently in normal sinus rhythm Acute kidney injury, likely cardiorenal, creatinine is currently 2.63 Possible urinary tract infection Leukocytosis Essential hypertension Hyperlipidemia Ex-smoker Plan: Patient's medications, labs, chest x-ray reviewed Continue supplemental oxygen to maintain oxygen saturation 92% or greater Currently on Lasix infusion at 10 mg per hour Obtain accurate intake and output Repeat chest x-ray in the morning Cardiology is following Heparin infusion per cardiology Nephrology is also following, no recommendations for hemodialysis at this point Continue empiric antibiotics Obtain procalcitonin level Patient is a DO NOT INTUBATE We will continue to follow I have personally seen and examined the patient, performed the documentation and the assessment and plan as written. Number of minutes spent on the visit:20 This is a joint evaluation that was done along with a nurse practitioner. A 81-year-old female patient with dementia and severe congestion heart failure along with history of hypertension and hyperlipidemia and paroxysmal A. fib/flutter we'll came into the hospital because of generalized weakness and shortness of breath. The patient was seen by cardiology. She was given IV amiodarone. She converted into normal sinus mechanism. Chest x-ray is consistent with CHF and pulmonary edema. The patient is currently on a Lasix drip. She is on high flow oxygen 50 L/m nasal cannula. She is obviously an acute hypoxic respiratory failure. ProBNP level is quite elevated. White cell cause of 12.9. No fever. 4 calcitonin level is elevated at 15.9 could be related to the renal failure. UA is showing increased the white cell count. We'll of underlying urinary tract infection. Continue same treatment for now. We'll add IV Rocephin. We'll continue to follow. Evaluation was done in more than 30 minutes. Time with Patient: Greater than 30
[2022-11-24] MEDS: FUROSEMIDE 100 MG in SODIUM CHLORIDE 0.9% 90 ML IV SCH ×2 (05:13→16:21)
--- NOTE | 2022-11-24 07:27 | XR ---
EXAMINATION TYPE: XR chest 1V portable DATE OF EXAM: 11/24/2022 7:11 AM COMPARISON: Chest radiographs from 11/23/2022 TECHNIQUE: XR chest 1V portable Frontal view of the chest. CLINICAL INDICATION:Female, 81 years old with history of dyspnea; FINDINGS: Lungs/Pleura: No evidence of focal consolidation or pneumothorax. Blunting of the costophrenic angles is present. Pulmonary vascularity: Unremarkable. Heart/mediastinum: Cardiomediastinal silhouette is enlarged and stable. Atherosclerotic calcificatio ns are seen in the aorta. Musculoskeletal: No acute osseous pathology. IMPRESSION: Cardiomegaly, pulmonary vascular congestion and bilateral pleural effusions. Correlate with BNP for c ongestive heart failure.
[2022-11-24 08:27] LABS: Basophils % (A) 0 %; Eosinophils % (A) 0 %; HCT 42.4 % (34.0-46.0); HGB 13.3 gm/dL (11.4-16.0); Hypochromasia Slight; Lymphocytes # (A) 1.5 k/uL (1.0-4.8); Lymphocytes % (A) 12 %; MCH 29.1 pg (25.0-35.0); MCHC 31.5 g/dL (31.0-37.0); MCV 92.5 fL (80.0-100.0); Mean Platelet Volume 8.2; Monocytes # (A) 0.6 k/uL (0-1.0); Monocytes % (A) 5 %; Neutrophils # (A) 10.7 k/uL (1.3-7.7); Neutrophils % (A) 82 %; Platelet Count 258 k/uL (150-450); RBC 4.58 m/uL (3.80-5.40); RDW 15.4 % (11.5-15.5); WBC 12.9 k/uL (3.8-10.6)
[2022-11-24 08:31] LABS: INR 1.1 (<1.2); Partial Thromboplastin Time 52.4 sec (22.0-30.0); Prothrombin Time 11.3 sec (9.0-12.0)
[2022-11-24 08:52] LABS: ALT 53 U/L (4-34); AST 58 U/L (14-36); African American GFR (CKD) 14 (>60 ml/min/1.73 sqM); Albumin 3.1 g/dL (3.5-5.0); Alkaline Phosphatase 127 U/L (38-126); Anion Gap 13 mmol/L; Blood Urea Nitrogen 67 mg/dL (7-17); Calcium 8.7 mg/dL (8.4-10.2); Carbon Dioxide 22 mmol/L (22-30); Chloride 109 mmol/L (98-107); Glucose 85 mg/dL (74-99); Non-African American GFR(CKD) 12 (>60 ml/min/1.73 sqM); Potassium 4.6 mmol/L (3.5-5.1); Sodium 144 mmol/L (137-145); Total Bilirubin 0.5 mg/dL (0.2-1.3); Total Protein 5.6 g/dL (6.3-8.2)
--- NOTE | 2022-11-24 08:55 | P.PN ---
Subjective Progress Note Date: 11/24/22 This is a 81-year-old female presented to the emergency room altered mental status. According to family patient has not been feeling well for the last few days. Family has noticed a significant decline in cognition, and patient has been unable to care for herself at home. Patient also with complaints of chest pain on admission. Ejection fraction is 25% and heart cath was negative. Pulmonology has been consulted for acute hypoxemic respiratory failure related to acute CHF exacerbation. Patient maintained on 15 L high flow nasal cannula and does not appear to be any acute distress. She is currently on a Lasix drip at 10 mg per hour. Family is concerned for patient's ability to return home [facility], would like to talk about placement. Objective - Vital Signs Vital signs: Vital Signs Temp 96.8 F L 11/24/22 08:00 Pulse 95 11/24/22 08:00 Resp 18 11/24/22 08:00 BP 131/76 11/24/22 08:00 Pulse Ox 95 11/24/22 04:00 FiO2 60 11/23/22 12:00 Intake & Output 11/23/22 11/24/22 11/24/22 18:59 06:59 18:59 Intake Total 192.06 160.167 Output Total 480 Balance 192.06 -319.833 Intake: Intake, IV Titration 192.06 160.167 Amount Amiodarone 450 mg In 49.8 Dextrose 5% in Water 250 ml @ 0.5 MG/MIN 16.667 mls/hr IV .Q15H [facility] Rx#: [id number] Furosemide 100 mg In 60 160.167 Sodium Chloride 0.9% 90 ml @ 10 MG/HR 10 mls/hr IV .Q10H [facility] Rx#: [id number] Heparin Sod,Pork in 0.45% 82.26 NaCl 25,000 unit In 0.45 % NaCl 1 250ml.bag @ 12 UNITS/KG/HR 9.144 mls/hr IV .Q24H [facility] Rx#: [id number] Output: Urine 480 Other: Voiding Method Indwelling Catheter Indwelling Catheter - Constitutional General appearance: Present: cooperative, no acute distress - EENT Eyes: Present: PERRLA - Neck Neck: Present: normal ROM. Absent: lymphadenopathy, rigidity - Respiratory Details: coarse - Cardiovascular Rhythm: regular Heart sounds: normal: S1, S2 - Gastrointestinal General gastrointestinal: Present: soft. Absent: tenderness - Integumentary Integumentary: Present: normal, normal turgor - Musculoskeletal Musculoskeletal: Present: generalized weakness - Psychiatric Psychiatric: Present: A&O x's 3 - Labs CBC & Chem 7: 11/24/22 07:28 11/23/22 07:04 Labs: Abnormal Lab Results - Last 24 Hours (Table) 11/23/22 11/23/22 11/23/22 Range/Units 10:06 10:06 15:39 WBC 15.0 H (3.8-10.6) k/uL Neutrophils # 12.5 H (1.3-7.7) k/uL APTT 21.8 L 77.9 H (22.0-30.0) sec 11/24/22 11/24/22 Range/Units 07:28 07:28 WBC 12.9 H (3.8-10.6) k/uL Neutrophils # 10.7 H (1.3-7.7) k/uL APTT 52.4 H (22.0-30.0) sec Assessment and Plan (1) CHF (congestive heart failure) Current Visit: Yes Status: Acute Code(s): I50.9 - HEART FAILURE, UNSPECIFIED SNOMED Code(s): 95565950 (2) Acute hypoxemic respiratory failure Current Visit: Yes Status: Acute Code(s): J96.01 - ACUTE RESPIRATORY FAILURE WITH HYPOXIA SNOMED Code(s): 767950755 (3) Acute kidney injury Current Visit: Yes Status: Acute Code(s): N17.9 - ACUTE KIDNEY FAILURE, UNSPECIFIED SNOMED Code(s): 66909632 (4) Hypertension Current Visit: Yes Status: Acute Code(s): I10 - ESSENTIAL (PRIMARY) HYPERTENSION SNOMED Code(s): 44827672 (5) Hyperlipidemia Current Visit: No Status: Acute Code(s): E78.5 - HYPERLIPIDEMIA, UNSPECIFIED SNOMED Code(s): 70285946 (6) Weakness Current Visit: Yes Status: Acute Code(s): R53.1 - WEAKNESS SNOMED Code(s): 60603336 Plan: Check labs in the morning. Consult to discharge planning for possible placement. Appreciate multiple consultants. Patient seen and evaluated by nurse practitioner, physician in agreement with plan
[2022-11-24] MEDS: ASPIRIN 81 MG PO SCH (09:56)
[2022-11-24] MEDS: METOPROLOL TARTRATE 12.5 MG TAB PO SCH ×2 (09:56→20:15)
[2022-11-24] MEDS: AMIODARONE 200 MG TAB PO SCH ×2 (09:56→20:15)
[2022-11-24] MEDS: PANTOPRAZOLE 40 MG/10 ML VIAL IV SCH (09:58)
[2022-11-24 10:46] LABS: Chol/HDL Ratio 3.18 Ratio; LDL Cholesterol,Calculated 117.2 mg/dL (0.0-131.0)
--- NOTE | 2022-11-24 12:31 | P.PN ---
Subjective Patient is seen for follow-up for acute kidney injury mostly cardiorenal. Patient was taken for cardiac catheterization yesterday however she was not found to have any significant obstructive disease. Blood pressure is slightly improved to 112-113 mmHg. Urine output charted at 480 ML for 24 hours. Started on Lasix drip yesterday. Urine output improved about 425 mL since this morning. Currently on high flow oxygen at 15 L Creatinine worse at 3.4 today Objective - Vital Signs Vital signs: Vital Signs Temp 98.1 F 11/24/22 12:00 Pulse 66 11/24/22 12:00 Resp 16 11/24/22 12:00 BP 115/74 11/24/22 12:00 Pulse Ox 99 11/24/22 12:00 FiO2 60 11/23/22 12:00 Intake & Output 11/23/22 11/24/22 11/24/22 18:59 06:59 18:59 Intake Total 192.06 160.167 Output Total 480 425 Balance 192.06 -319.833 -425 Intake: Intake, IV Titration 192.06 160.167 Amount Amiodarone 450 mg In 49.8 Dextrose 5% in Water 250 ml @ 0.5 MG/MIN 16.667 mls/hr IV .Q15H [facility] Rx#: [id number] Furosemide 100 mg In 60 160.167 Sodium Chloride 0.9% 90 ml @ 10 MG/HR 10 mls/hr IV .Q10H [facility] Rx#: [id number] Heparin Sod,Pork in 0.45% 82.26 NaCl 25,000 unit In 0.45 % NaCl 1 250ml.bag @ 12 UNITS/KG/HR 9.144 mls/hr IV .Q24H [facility] Rx#: [id number] Output: Urine 480 425 Other: Voiding Method Indwelling Catheter Indwelling Catheter Indwelling Catheter - Exam Awake, currently on high flow oxygen Alert oriented 3 Examination of the heart S1 and S2 Examination of the lungs bilateral breath sounds are heard, decrease at the bases Abdomen is soft nontender Examination of lower extremities shows trace edema bilaterally [employer]ING [employer] exam grossly intact - Labs CBC & Chem 7: 11/24/22 07:28 11/24/22 07:28 Labs: Abnormal Lab Results - Last 24 Hours (Table) 11/23/22 11/23/22 11/24/22 Range/Units 07:04 15:39 07:28 WBC 12.9 H (3.8-10.6) k/uL Neutrophils # 10.7 H (1.3-7.7) k/uL APTT 77.9 H (22.0-30.0) sec Chloride (98-107) mmol/L BUN (7-17) mg/dL Creatinine (0.52-1.04) mg/dL AST (14-36) U/L ALT (4-34) U/L Alkaline Phosphatase (38-126) U/L Total Protein (6.3-8.2) g/dL Albumin (3.5-5.0) g/dL Triglycerides 168.00 H (0.00-149.00) mg/dL Cholesterol 220.00 H (0.00-200.00) mg/dL HDL Cholesterol 69.20 H (40.00-60.00) mg/dL Vitamin B12 167.0 L (200.0-944.0) pg/mL Procalcitonin (0.02-0.09) ng/mL 11/24/22 11/24/22 11/24/22 Range/Units 07:28 07:28 07:28 WBC (3.8-10.6) k/uL Neutrophils # (1.3-7.7) k/uL APTT 52.4 H (22.0-30.0) sec Chloride 109 H (98-107) mmol/L BUN 67 H (7-17) mg/dL Creatinine 3.43 H (0.52-1.04) mg/dL AST 58 H (14-36) U/L ALT 53 H (4-34) U/L Alkaline Phosphatase 127 H (38-126) U/L Total Protein 5.6 L (6.3-8.2) g/dL Albumin 3.1 L (3.5-5.0) g/dL Triglycerides (0.00-149.00) mg/dL Cholesterol (0.00-200.00) mg/dL HDL Cholesterol (40.00-60.00) mg/dL Vitamin B12 (200.0-944.0) pg/mL Procalcitonin 15.90 H (0.02-0.09) ng/mL Assessment and Plan Assessment: 1. Acute kidney injury, cardiorenal as well as component of ATN from hypote nsion/hypoperfusion. Has indwelling Yip catheter. Status post cardiac catheterization on 11/22/2022. Started Lasix drip yesterday 11/23/2022 with some improvement in urine output No nephrotoxic agents on board 2. Acute non-ST elevation VA, status post cardiac catheterization on 11/22/2022 with no evidence of obstructive disease 3. A. fib with RVR maintained on amiodarone drip. Patient had converted to sinus rhythm earlier 4. Hypokalemia 5. Acute hypoxic respiratory failure secondary to CHF 6. CHF, ejection fraction 20-25% Plan: Continue with Lasix drip Discussed with cardiology again regarding dobutamine drip given the significantly low ejection fraction. Patient may need to start renal replacement therapy if urine output remains low. Expect renal function to worsen from contrast-induced nephropathy as well over the next few days.
--- NOTE | 2022-11-24 14:04 | P.PN ---
Subjective Progress Note Date: 11/24/22 The patient is a pleasant 81-year-old female patient with a past medical history significant for hypertension and dyslipidemia and history of smoking currently she is not a smoker as well as history of underlying dementia was brought to the hospital by her family because she was not feeling well. The patient somewhat is a poor historian but apparently for the last few days she has been experiencing symptoms of chest discomfort. The discomfort was across the chest was no radiation to the arms or neck or shoulders or back. No associated symptoms of dizziness or lightheadedness or any feeling of heart racing or fluttering or presyncope or syncope. She was brought to the emergency department where she underwent further evaluation including an EKG initially showed sinus mechanism was T-wave inversion in lead 1 and aVL and Q wave in V1 to V6. Subsequently she went into arrhythmia to wa appeared to be in atrial fibrillation/atrial flutter and subsequently she was started on amiodarone IV with conversion to sinus mechanism. Earlier today she went into acute respiratory distress related to pulmonary edema where she was given Lasix and morphine. Her pressure has been marginal. An echo is in process to be done. Troponin came in to be abnormal and consistent with acute coronary syndrome. The EKG as described above. The chest x-ray showed findings consistent with pulmonary edema. Creatinine is abnormal and she seems to be in acute on chronic renal failure. No history of coronary artery disease or congestive heart failure or cardiac arrhythmia and the patient never seen by a physical therapy manager before. 11/23/2022 The patient was seen this morning. She underwent an echocardiogram which revealed severe cardiomyopathy with EF around 25% with mid ventricle and apical hypokinesia. Subsequently heart catheterization revealed mild nonobstructive coronary artery disease with elevated left-sided filling pressure with LVEDP of 26 mmHg. She was seen this morning. She still in respiratory distress and she still hypoxic. The chest x-ray showed bilateral pleural effusion. She stated h ave mild bilateral lower extremity edema. No symptoms of any chest pain or chest discomfort. No more episodes of any cardiac arrhythmia. Pressure has been within normal limits. Heart rate has been in the 50s. Urine output has been marginal. Kidney function is slightly better this morning. 11/24 Patient is currently on managed by nephrology. She is having intermittent emphasis on clear liquid diet. Patient has not required midodrine which will be discontinued is counterproductive to heart failure management. Patient is also continued on IV heparin versus oral anticoagulation at this point. Repeat blood work reveals WBC 12.9, hemoglobin 13.3, BUN 67 and creatinine 3.43. Chest x-ray reveals cardiomegaly, pulmonary vascular congestion and bilateral pleural effusions. On examination she has diminished breathing sounds bilaterally but I could not hear any rhonchi or crackles. She has mild bilateral lower extremity is edema noted. Assessment Stress induced cardiomyopathy Cardiac arrhythmia in terms of atrial fibrillation/flutter and converted to normal sinus mechanism Heart failure exacerbation secondary to heart failure with reduced ejection fraction Acute hypoxic respiratory failure Paroxysmal atrial fibrillation Plan Continue oral amiodarone Continue heparin IV and consider oral anticoagulation down the line Continue aspirin, atorvastatin, Lopressor 12.5 mg twice daily Avoid any MARINA inhibitor at this point in the light of acute renal failure Follow-up with the patient Nurse practitioner note has been reviewed, I agree with the documented findings and plan of care. Patient was seen and examined. Objective - Vital Signs Vital signs: Vital Signs Temp 96.8 F L 11/24/22 08:00 Pulse 95 11/24/22 08:00 Resp 18 11/24/22 08:00 BP 131/76 11/24/22 08:00 Pulse Ox 95 11/24/22 04:00 FiO2 60 11/23/22 12:00 Intake & Output 11/23/22 11/24/22 11/24/22 18:59 06:59 18:59 Intake Total 192.06 160.167 Output Total 480 Balance 192.06 -319.833 Intake: Intake, IV Titration 192.06 160.167 Amount Amiodarone 450 mg In 49.8 Dextrose 5% in Water 250 ml @ 0.5 MG/MIN 16.667 mls/hr IV .Q15H [facility] Rx#: [id number] Furosemide 100 mg In 60 160.167 Sodium Chloride 0.9% 90 ml @ 10 MG/HR 10 mls/hr IV .Q10H [facility] Rx#: [id number] Heparin Sod,Pork in 0.45% 82.26 NaCl 25,000 unit In 0.45 % NaCl 1 250ml.bag @ 12 UNITS/KG/HR 9.144 mls/hr IV .Q24H [facility] Rx#: [id number] Output: Urine 480 Other: Voiding Method Indwelling Catheter Indwelling Catheter - Labs CBC & Chem 7: 11/24/22 07:28 11/24/22 07:28 Labs: Abnormal Lab Results - Last 24 Hours (Table) 11/23/22 11/23/22 11/23/22 Range/Units 10:06 10:06 15:39 WBC 15.0 H (3.8-10.6) k/uL Neutrophils # 12.5 H (1.3-7.7) k/uL APTT 21.8 L 77.9 H (22.0-30.0) sec 11/24/22 11/24/22 Range/Units 07:28 07:28 WBC 12.9 H (3.8-10.6) k/uL Neutrophils # 10.7 H (1.3-7.7) k/uL APTT 52.4 H (22.0-30.0) sec
[2022-11-24] MEDS: HEPARIN SOD,PORK IN 0.45% NACL 25,000 UNIT in 0.45% NACL 1 250ML.BAG IV SCH (14:30)
[2022-11-24] MEDS ORDERED: DOBUTamine DRIP 500 MG in DEXTROSE/WATER 1 250ML.BAG IV SCH (16:00)
[2022-11-24] MEDS: ATORVASTATIN 10 MG TAB PO SCH (20:15)
[2022-11-24] MEDS: DONEPEZIL 10 MG TAB PO SCH (20:15)
[2022-11-24] MEDS: MONTELUKAST 10 MG TAB PO SCH (20:15)
[2022-11-25] MEDS: FUROSEMIDE 100 MG in SODIUM CHLORIDE 0.9% 90 ML IV SCH ×2 (01:33→10:50)
[2022-11-25] MEDS: MORPHINE SULFATE 4 MG/ML SYRINGE IV PRN (02:37)
[2022-11-25] MEDS: METOPROLOL TARTRATE 12.5 MG TAB PO SCH (08:52)
[2022-11-25] MEDS: PANTOPRAZOLE 40 MG/10 ML VIAL IV SCH (08:52)
[2022-11-25] MEDS: ASPIRIN 81 MG PO SCH (08:52)
[2022-11-25] MEDS: AMIODARONE 200 MG TAB PO SCH (08:52)
--- NOTE | 2022-11-25 09:15 | P.PN ---
Subjective Progress Note Date: 11/25/22 This is a 81-year-old female presented to the emergency room altered mental status. According to family patient has not been feeling well for the last few days. Family has noticed a significant decline in cognition, and patient has been unable to care for herself at home. Patient also with complaints of chest pain on admission. Ejection fraction is 25% and heart cath was negative. Pulmonology has been consulted for acute hypoxemic respiratory failure related to acute CHF exacerbation. Patient maintained on 15 L high flow nasal cannula and does not appear to be any acute distress. She is currently on a Lasix drip at 10 mg per hour. Family is concerned for patient's ability to return home [facility], would like to talk about placement. 11/25/22 Patient remains on 15 L high flow nasal cannula. She also continues Lasix drip at 10 mg/h. She has a Yip catheter in place. Patient does appear more fatigued today porches feeling well. Family and care management discussing placement after discharge. Objective - Vital Signs Vital signs: Vital Signs Temp 97.5 F L 11/25/22 08:00 Pulse 70 11/25/22 08:00 Resp 18 11/25/22 08:00 BP 130/62 11/25/22 08:00 Pulse Ox 99 11/25/22 08:00 FiO2 60 11/23/22 12:00 Intake & Output 11/24/22 11/25/22 11/25/22 18:59 06:59 18:59 Intake Total 350 392 72.695 Output Total 700 2250 Balance -350 -1858 72.695 Intake: Intake, IV Titration 350 92 72.695 Amount DOBUTamine DRIP 500 mg In 72.695 Dextrose/Water 1 250ml. bag @ 2 MCG/KG/MIN 4.572 mls/hr IV .Q24H [facility] Rx#: [id number] Furosemide 100 mg In 100 92 Sodium Chloride 0.9% 90 ml @ 10 MG/HR 10 mls/hr IV .Q10H [facility] Rx#: [id number] Heparin Sod,Pork in 0.45% 250 NaCl 25,000 unit In 0.45 % NaCl 1 250ml.bag @ 12 UNITS/KG/HR 9.144 mls/hr IV .Q24H [facility] Rx#: [id number] Oral 0 300 0 Output: Urine 700 2250 Uretheral (Yip) 1250 Other: Voiding Method Indwelling Catheter Indwelling Catheter - Constitutional General appearance: Present: cooperative, no acute distress - EENT Eyes: Present: PERRLA - Neck Neck: Present: normal ROM. Absent: lymphadenopathy, rigidity - Respiratory Respiratory: bilateral: CTA - Cardiovascular Rhythm: regular Heart sounds: normal: S1, S2 - Gastrointestinal General gastrointestinal: Present: soft. Absent: tenderness - Integumentary Integumentary: Present: normal, normal turgor - Musculoskeletal Musculoskeletal: Present: generalized weakness - Psychiatric Psychiatric: Present: A&O x's 3, appropriate affect, intact judgment & insight - Labs CBC & Chem 7: 11/24/22 07:28 11/24/22 07:28 Labs: Abnormal Lab Results - Last 24 Hours (Table) 11/23/22 11/24/22 Range/Units 07:04 07:28 Triglycerides 168.00 H (0.00-149.00) mg/dL Cholesterol 220.00 H (0.00-200.00) mg/dL HDL Cholesterol 69.20 H (40.00-60.00) mg/dL Vitamin B12 167.0 L (200.0-944.0) pg/mL Procalcitonin 15.90 H (0.02-0.09) ng/mL Assessment and Plan (1) CHF (congestive heart failure) Current Visit: Yes Status: Acute Code(s): I50.9 - HEART FAILURE, UNSPECIFIED SNOMED Code(s): 40471497 (2) Acute hypoxemic respiratory failure Current Visit: Yes Status: Acute Code(s): J96.01 - ACUTE RESPIRATORY FAILURE WITH HYPOXIA SNOMED Code(s): 036236767 (3) Acute kidney injury Current Visit: Yes Status: Acute Code(s): N17.9 - ACUTE KIDNEY FAILURE, UNSPECIFIED SNOMED Code(s): 16090100 (4) Hypertension Current Visit: Yes Status: Acute Code(s): I10 - ESSENTIAL (PRIMARY) HYPERTENSION SNOMED Code(s): 58270735 (5) Hyperlipidemia Current Visit: No Status: Acute Code(s): E78.5 - HYPERLIPIDEMIA, UNSPECIFIED SNOMED Code(s): 82000908 (6) Weakness Current Visit: Yes Status: Acute Code(s): R53.1 - WEAKNESS SNOMED Code(s): 19251671 Plan: Check labs in the morning. Appreciate multiple consultants. Patient seen and evaluated by nurse practitioner, physician in agreement with plan
[2022-11-25] MEDS: ONDANSETRON 4 MG/2 ML VIAL IVP PRN (09:47)
--- NOTE | 2022-11-25 11:02 | P.PN ---
Subjective Progress Note Date: 11/25/22 I am seeing this patient in new consultation today 11/24/2022 for acute hypoxemic respiratory failure related to acute CHF exacerbation. Patient is a 81-year-old white female with past medical history significant for hypertension, hyperlipidemia, prior bowel resection, diverticulitis, and has a remote history of smoking. The patient is somewhat a poor historian, but reportedly originally presented to the emergency room back on November 21 for altered mental status and weakness. Chest x-ray on arrival was consistent with CHF exacerbation. Follow- up echocardiogram showed a severely impaired left ventricular ejection fraction around 20-25% with moderate mitral regurgitation. Troponins were also elevated on arrival at 19.6, and have trended down to 10.8. Patient did go to the [facility] on November 22, which showed mild nonobstructive coronary artery disease. No PCI or intervention was performed. Patient's nurse also reports the patient was in A. fib/A flutter at some point during this admission. Patient was on IV amiodarone, which has been switched to by mouth. ECG that is available showed normal sinus rhythm without any acute ischemic changes. Patient is currently sitting up in bed. She is oriented to person, place, time. She is confused, however, and asked me how to get to bed, while already in bed. She is on 15 L high flow nasal cannula, fairly comfortable, in no acute distress. Most recent chest x-ray shows scattered airspace opacities and suspected bilateral pleural effusions. NT proBNP from today was elevated at 24,600. She is currently on Lasix infusing at 10 mg per hour. She is also on a low intensity heparin infusion per protocol. She denies any cough, fever, chest pain. She does admit to shortness breath, lower extremity swelling and orthopnea. Denies any palpitations, PND. CT of the brain and CT spine without contrast on arrival showed no acute intracranial process or evidence of fractures. Most recent CBC from yesterday shows a WBC count of 15, hemoglobin 14.4, hematocrit 45, platelets 193. Most recent BMP shows sodium 142, potassium 5.1, chloride 110, serum CO2 19, BUN 49, creatinine up to 2.63, glucose 109. There is a component of acute kidney injury, likely related to cardiorenal effect. Urinalysis was positive for leukocyte esterase and many bacteria. Patient is covered on IV Rocephin. Vital signs are stable at this time. Patient is a DO NOT INTUBATE. On today's evaluation of 11/25/2022, the patient is being seen for a follow-up. Note that the patient has multiple medical problems and comorbidities. She is a DNR/DNI CODE STATUS. She has systolic heart failure with an ejection fraction of 20-25% and mitral regurgitation moderately severe. The patient has significant respiratory distress. The patient is currently on high flow oxygen 15 L. She was unable to tolerate the BiPAP. She underwent cardiac catheterization and she was found to have nonobstructive coronary artery disease. She is currently on a combination of Lasix drip, dobutamine is running at 2.5 mcg/kg/m and the patient is also on IV heparin regarding her ongoing itch of fibrillation/flutter. The patient started producing adequate amount of urine output. She has produced more than 2 L of fluid chest x-ray from yesterday showed evidence of CHF or pulmonary vascular congestion and bilateral pleural fluid. The PT was subtherapeutic and the patient was in the bolus. The patient was started on IV Rocephin for suspected UTI.. She is communicating and she is alert. No active signs of respiratory distress at this point in time. Objective - Vital Signs Vital signs: Vital Signs Temp 97.5 F L 11/25/22 08:00 Pulse 70 11/25/22 08:00 Resp 18 11/25/22 08:00 BP 130/62 11/25/22 08:00 Pulse Ox 99 11/25/22 08:00 FiO2 60 11/23/22 12:00 Intake & Output 11/24/22 11/25/22 11/25/22 18:59 06:59 18:59 Intake Total 350 392 350.237 Output Total 700 2250 950 Balance -350 -6978 -599.763 Intake: Intake, IV Titration 350 92 350.237 Amount DOBUTamine DRIP 500 mg In 72.695 Dextrose/Water 1 250ml. bag @ 2 MCG/KG/MIN 4.572 mls/hr IV .Q24H [facility] Rx#: [id number] Furosemide 100 mg In 100 92 92.833 Sodium Chloride 0.9% 90 ml @ 10 MG/HR 10 mls/hr IV .Q10H [facility] Rx#: [id number] Heparin Sod,Pork in 0.45% 250 184.709 NaCl 25,000 unit In 0.45 % NaCl 1 250ml.bag @ 12 UNITS/KG/HR 9.144 mls/hr IV .Q24H [facility] Rx#: [id number] Oral 0 300 0 Output: Urine 700 2250 950 Uretheral (Yip) 1250 Other: Voiding Method Indwelling Catheter Indwelling Catheter Indwelling Catheter - Exam GENERAL EXAM: Alert, 81-year-old white female, fairly comfortable in no apparent distress. The patient is currently on 15 L of oxygen high flow and not using it is a most of breathing. She has a Yip catheter in place HEAD: Normocephalic and atraumatic EYES: Normal reaction of pupils, equal size. NOSE: Clear with pink turbinates. THROAT: No erythema or exudates. NECK: No masses, no JVD. CHEST: No chest wall deformity. LUNGS: Equal air entry with bibasilar inspiratory crackles. No wheezes or rhonchi. On 15 L high flow cannula. No conversational dyspnea or accessory muscle use.. CVS: S1 and S2 normal with no audible murmur, regular rhythm. No extra heart sounds ABDOMEN: No hepatosplenomegaly, active bowel sounds, no guarding or rigidity. SPINE: No scoliosis or deformity SKIN: No rashes CENTRAL NERVOUS SYSTEM: No focal deficits, tone is normal in all 4 extremities. EXTREMITIES: There is 1-2+ bilateral lower extremity edema. No clubbing, or cyanosis. Peripheral pulses are intact. - Labs CBC & Chem 7: 11/24/22 07:28 11/24/22 07:28 Labs: Abnormal Lab Results - Last 24 Hours (Table) 11/24/22 11/25/22 Range/Units 07:28 09:29 APTT 36.4 H (22.0-30.0) sec Procalcitonin 15.90 H (0.02-0.09) ng/mL Assessment and Plan Assessment: Acute exacerbation of systolic congestive heart failure, echocardiogram done on this admission shows a severely reduced ejection fraction of 20-25%, along with moderate mitral valve regurgitation. Currently on Lasix infusion. Lasix drip is running at 10 mg an hour and the patient is also on dobutamine infusion to augment the cardiac output. She is producing some urine output for now. She has produced approximately 2 L and FiO2 cardiology as both on the case. She is a DNR/DNI CODE STATUS. Acute hypoxemic respiratory failure, secondary to above, currently on 15 L high flow nasal cannula. Most recent chest x-ray shows cardiomegaly, suspected small to moderate bilateral pleural effusions with the left being greater than the right, and scattered over airspace opacities. Elevated troponins and suspected non-ST elevation [place], status post cardiac catheterization which showed mild nonobstructive coronary artery disease. PCI intervention was performed Suspected atrial fibrillation/A flutter, resolved currently in normal sinus rhythm Acute kidney injury, likely cardiorenal, creatinine is elevated compared to her baseline. Awaiting follow-up labs from today. The father's on the case. Possible urinary tract infection Leukocytosis Essential hypertension Hyperlipidemia Ex-smoker Plan: Keep the patient on cardiac floor. Continue Lasix drip Continue IV heparin drip Continue IV dobutamine drip Establish IV access Nephrology is also following, no recommendations for hemodialysis at this point Continue empiric antibiotics Obtain procalcitonin level was elevated. This could be also related to the renal failure. Patient is covered with appropriate antibiotics. Patient is a DO NOT INTUBATE We will continue to follow Labs from today are still pending.
[2022-11-25 11:34] LABS: Basophils # (A) 0.1 k/uL (0-0.2); Basophils % (A) 1 %; Eosinophils % (A) 0 %; HCT 36.5 % (34.0-46.0); HGB 11.8 gm/dL (11.4-16.0); Hypochromasia Slight; Lymphocytes # (A) 1.1 k/uL (1.0-4.8); Lymphocytes % (A) 10 %; MCH 29.5 pg (25.0-35.0); MCHC 32.4 g/dL (31.0-37.0); Mean Platelet Volume 7.7; Monocytes # (A) 0.6 k/uL (0-1.0); Monocytes % (A) 5 %; Neutrophils # (A) 8.9 k/uL (1.3-7.7); Neutrophils % (A) 83 %; Platelet Count 237 k/uL (150-450); RBC 4.01 m/uL (3.80-5.40); RDW 15.7 % (11.5-15.5); WBC 10.7 k/uL (3.8-10.6)
[2022-11-25 11:49] LABS: Albumin 3.3 g/dL (3.5-5.0); Glucose 92 mg/dL (74-99); Potassium 3.6 mmol/L (3.5-5.1); Sodium 148 mmol/L (137-145); Total Protein 5.9 g/dL (6.3-8.2)
[2022-11-25 11:51] LABS: ALT 44 U/L (4-34); AST 37 U/L (14-36); African American GFR (CKD) 17 (>60 ml/min/1.73 sqM); Alkaline Phosphatase 117 U/L (38-126); Blood Urea Nitrogen 68 mg/dL (7-17); Calcium 8.5 mg/dL (8.4-10.2); Carbon Dioxide 24 mmol/L (22-30); Non-African American GFR(CKD) 14 (>60 ml/min/1.73 sqM); Total Bilirubin 0.5 mg/dL (0.2-1.3)
[2022-11-25 12:17] LABS: Anion Gap 13 mmol/L; Chloride 111 mmol/L (98-107)
[2022-11-25 12:31] VITALS: BP 129/69; PULSE 65; RESP 22; TEMP 97.6
--- NOTE | 2022-11-25 13:32 | P.PN ---
Subjective Patient is seen for follow-up for acute kidney injury mostly cardiorenal. Patient was taken for cardiac catheterization yesterday however she was not found to have any significant obstructive disease. Started on Lasix drip. Dobutamine added yesterday with some improvement in urine output. 900 mL of urine noted for 24 hours which is significantly better. Currently on high flow oxygen at 15 L Complaints of nausea this morning Creatinine has decreased to 2.9 today. Family was approached regarding renal replacement therapy and at this time there are no plans to proceed with dialysis. Hospice care has been discussed as well. Objective - Vital Signs Vital signs: Vital Signs Temp 97.6 F 11/25/22 12:00 Pulse 65 11/25/22 12:00 Resp 22 11/25/22 12:00 BP 129/69 11/25/22 12:00 Pulse Ox 100 11/25/22 12:00 FiO2 60 11/23/22 12:00 Intake & Output 11/24/22 11/25/22 11/25/22 18:59 06:59 18:59 Intake Total 350 392 350.237 Output Total 700 2250 950 Balance -350 -1858 -599.763 Intake: Intake, IV Titration 350 92 350.237 Amount DOBUTamine DRIP 500 mg In 72.695 Dextrose/Water 1 250ml. bag @ 2 MCG/KG/MIN 4.572 mls/hr IV .Q24H [facility] Rx#: [id number] Furosemide 100 mg In 100 92 92.833 Sodium Chloride 0.9% 90 ml @ 10 MG/HR 10 mls/hr IV .Q10H [facility] Rx#: [id number] Heparin Sod,Pork in 0.45% 250 184.709 NaCl 25,000 unit In 0.45 % NaCl 1 250ml.bag @ 12 UNITS/KG/HR 9.144 mls/hr IV .Q24H [facility] Rx#: [id number] Oral 0 300 0 Output: Urine 700 2250 950 Uretheral (Yip) 1250 Other: Voiding Method Indwelling Catheter Indwelling Catheter Indwelling Catheter - Exam Awake, currently on high flow oxygen Alert oriented 3 Examination of the heart S1 and S2 Examination of the lungs bilateral breath sounds are heard, decrease at the bases Abdomen is soft nontender Examination of lower extremities shows trace edema bilaterally LABORATORY CHIEF exam grossly intact - Labs CBC & Chem 7: 11/25/22 11:18 11/25/22 11:18 Labs: Abnormal Lab Results - Last 24 Hours (Table) 11/25/22 11/25/22 11/25/22 Range/Units 09:29 11:18 11:18 WBC 10.7 H (3.8-10.6) k/uL RDW 15.7 H (11.5-15.5) % Neutrophils # 8.9 H (1.3-7.7) k/uL APTT 36.4 H (22.0-30.0) sec Sodium 148 H (137-145) mmol/L Chloride 111 H (98-107) mmol/L BUN 68 H (7-17) mg/dL Creatinine 2.96 H (0.52-1.04) mg/dL AST 37 H (14-36) U/L ALT 44 H (4-34) U/L Total Protein 5.9 L (6.3-8.2) g/dL Albumin 3.3 L (3.5-5.0) g/dL Microbiology - Last 24 Hours (Table) 11/24/22 06:20 Urine Culture - Final Urine,Voided Assessment and Plan Assessment: 1. Acute kidney injury, cardiorenal as well as component of ATN from hypotension/hypoperfusion. Has indwelling Yip catheter. Status post cardiac catheterization on 11/22/2022. Started Lasix drip on 11/23/2022 with some improvement in urine output. Urine output further improvement with dobutamine and creatinine is actually better today. Family not keen on renal replacement therapy. 2. Acute non-ST elevation CA, status post cardiac catheterization on 11/22/2022 with no evidence of obstructive disease 3. A. fib with RVR maintained on amiodarone drip. Patient had converted to sinus rhythm earlier 4. Hypokalemia 5. Acute hypoxic respiratory failure secondary to CHF 6. CHF, ejection fraction 20-25% Plan: Continue with Lasix and dobutamine drips Repeat labs in a.m.
--- NOTE | 2022-11-25 14:44 | P.PN ---
Subjective Progress Note Date: 11/25/22 The patient is a pleasant 81-year-old female patient with a past medical history significant for hypertension and dyslipidemia and history of smoking currently she is not a smoker as well as history of underlying dementia was brought to the hospital by her family because she was not feeling well. The patient somewhat is a poor historian but apparently for the last few days she has been experiencing symptoms of chest discomfort. The discomfort was across the chest was no radiation to the arms or neck or shoulders or back. No associated symptoms of dizziness or lightheadedness or any feeling of heart racing or fluttering or presyncope or syncope. She was brought to the emergency department where she underwent further evaluation including an EKG initially showed sinus mechanism was T-wave inversion in lead 1 and aVL and Q wave in V1 to V6. Subsequently she went into arrhythmia to wa appeared to be in atrial fibrillation/atrial flutter and subsequently she was started on amiodarone IV with conversion to sinus mechanism. Earlier today she went into acute respiratory distress related to pulmonary edema where she was given Lasix and morphine. Her pressure has been marginal. An echo is in process to be done. Troponin came in to be abnormal and consistent with acute coronary syndrome. The EKG as described above. The chest x-ray showed findings consistent with pulmonary edema. Creatinine is abnormal and she seems to be in acute on chronic renal failure. No history of coronary artery disease or congestive heart failure or cardiac arrhythmia and the patient never seen by a pediatric dental assistant before. 11/23/2022 The patient was seen this morning. She underwent an echocardiogram which revealed severe cardiomyopathy with EF around 25% with mid ventricle and apical hypokinesia. Subsequently heart catheterization revealed mild nonobstructive coronary artery disease with elevated left-sided filling pressure with LVEDP of 26 mmHg. She was seen this morning. She still in respiratory distress and she still hypoxic. The chest x-ray showed bilateral pleural effusion. She stated h ave mild bilateral lower extremity edema. No symptoms of any chest pain or chest discomfort. No more episodes of any cardiac arrhythmia. Pressure has been within normal limits. Heart rate has been in the 50s. Urine output has been marginal. Kidney function is slightly better this morning. 11/24 Patient is currently on managed by nephrology. She is having intermittent emphasis on clear liquid diet. Patient has not required midodrine which will be discontinued is counterproductive to heart failure management. Patient is also continued on IV heparin versus oral anticoagulation at this point. Repeat blood work reveals WBC 12.9, hemoglobin 13.3, BUN 67 and creatinine 3.43. Chest x-ray reveals cardiomegaly, pulmonary vascular congestion and bilateral pleural effusions. 11/25 Patient has not been doing well this morning. She is on BiPAP continues to have issues with vomiting. She's been clammy and sweaty. Nephrology is talking about dialysis. Family has chosen to pursue hospice care. On examination she has diminished breathing sounds bilaterally but I could not hear any rhonchi or crackles. She has mild bilateral lower extremity is edema noted. Assessment Stress induced cardiomyopathy Cardiac arrhythmia in terms of atrial fibrillation/flutter and converted to normal sinus mechanism Heart failure exacerbation secondary to heart failure with reduced ejection fraction Acute hypoxic respiratory failure Paroxysmal atrial fibrillation Plan As patient transitions to comfort measures, continue only medications that will aid in comfort. Cardiology will sign off. Nurse practitioner note has been reviewed, I agree with the documented findings and plan of care. Patient was seen and examined. Objective - Vital Signs Vital signs: Vital Signs Temp 97.6 F 11/25/22 12:00 Pulse 65 11/25/22 12:00 Resp 22 11/25/22 12:00 BP 129/69 11/25/22 12:00 Pulse Ox 100 11/25/22 12:00 FiO2 60 11/23/22 12:00 Intake & Output 11/24/22 11/25/22 11/25/22 18:59 06:59 18:59 Intake Total 350 392 406.070 Output Total 700 2250 950 Balance -350 -1858 -543.930 Intake: Intake, IV Titration 350 92 406.070 Amount DOBUTamine DRIP 500 mg In 87.630 Dextrose/Water 1 250ml. bag @ 2 MCG/KG/MIN 4.572 mls/hr IV .Q24H [facility] Rx#: [id number] Furosemide 100 mg In 100 92 92.833 Sodium Chloride 0.9% 90 ml @ 10 MG/HR 10 mls/hr IV .Q10H [facility] Rx#: [id number] Heparin Sod,Pork in 0.45% 250 225.607 NaCl 25,000 unit In 0.45 % NaCl 1 250ml.bag @ 12 UNITS/KG/HR 9.144 mls/hr IV .Q24H [facility] Rx#: [id number] Oral 0 300 0 Output: Urine 700 2250 950 Uretheral (Yip) 1250 Other: Voiding Method Indwelling Catheter Indwelling Catheter Indwelling Catheter - Labs CBC & Chem 7: 11/25/22 11:18 11/25/22 11:18 Labs: Abnormal Lab Results - Last 24 Hours (Table) 11/25/22 11/25/22 11/25/22 Range/Units 09:29 11:18 11:18 WBC 10.7 H (3.8-10.6) k/uL RDW 15.7 H (11.5-15.5) % Neutrophils # 8.9 H (1.3-7.7) k/uL APTT 36.4 H (22.0-30.0) sec Sodium 148 H (137-145) mmol/L Chloride 111 H (98-107) mmol/L BUN 68 H (7-17) mg/dL Creatinine 2.96 H (0.52-1.04) mg/dL AST 37 H (14-36) U/L ALT 44 H (4-34) U/L Total Protein 5.9 L (6.3-8.2) g/dL Albumin 3.3 L (3.5-5.0) g/dL Microbiology - Last 24 Hours (Table) 11/24/22 06:20 Urine Culture - Final Urine,Voided
== END 2022-11-25 14:36 | disposition hospice, inpatient (51) | DRG 280 ==
LOC: EC 18:33 → 3SCARD 21:32
PROVIDERS: ADMIT Family Medicine; ATTEND Family Medicine
PROC: 5A09357 Assistance with Respiratory Ventilation, Less than 24 Consecutive Hours, Continuous Positive Airway Pressure (ICD-10-PCS; 2022-11-22)
PROC: B2111ZZ Fluoroscopy of Multiple Coronary Arteries using Low Osmolar Contrast (ICD-10-PCS; principal; 2022-11-22 12:32)
PROC: 4A023N7 Measurement of Cardiac Sampling and Pressure, Left Heart, Percutaneous Approach (ICD-10-PCS; principal; 2022-11-22 12:32)
PROC: 05HA33Z Insertion of Infusion Device into Left Brachial Vein, Percutaneous Approach (ICD-10-PCS; 2022-11-25 15:15)
DX: I21.4 Non-ST elevation (NSTEMI) myocardial infarction (principal); G93.41 Metabolic encephalopathy; I50.23 Acute on chronic systolic (congestive) heart failure; J96.01 Acute respiratory failure with hypoxia; N17.0 Acute kidney failure with tubular necrosis; I13.0 Hypertensive heart and chronic kidney disease with heart failure and stage 1 through stage 4 chronic kidney disease, or unspecified chronic kidney disease; I48.92 Unspecified atrial flutter; N39.0 Urinary tract infection, site not specified; E78.5 Hyperlipidemia, unspecified; E87.6 Hypokalemia; I48.0 Paroxysmal atrial fibrillation; I25.10 Atherosclerotic heart disease of native coronary artery without angina pectoris; M54.50 Low back pain, unspecified; I95.9 Hypotension, unspecified; Z51.5 Encounter for palliative care; E66.9 Obesity, unspecified; E53.8 Deficiency of other specified B group vitamins; Z68.27 Body mass index [BMI] 27.0-27.9, adult; Z66 Do not resuscitate; K44.9 Diaphragmatic hernia without obstruction or gangrene; M19.90 Unspecified osteoarthritis, unspecified site; I34.0 Nonrheumatic mitral (valve) insufficiency; F03.90 Unspecified dementia, unspecified severity, without behavioral disturbance, psychotic disturbance, mood disturbance, and anxiety; K21.9 Gastro-esophageal reflux disease without esophagitis; N18.9 Chronic kidney disease, unspecified; R29.810 Facial weakness; Z96.651 Presence of right artificial knee joint; Z96.641 Presence of right artificial hip joint; Z88.0 Allergy status to penicillin; Z88.1 Allergy status to other antibiotic agents; Z79.82 Long term (current) use of aspirin; Z79.899 Other long term (current) drug therapy; Z87.891 Personal history of nicotine dependence
CPT/HCPCS: 36410; 36415; 70450; 71045; 72125; 73502; 76770; 76937; 80048; 80053; 80061; 80306; 80320; 81001; 82140; 82607; 82746; 83036; 83735; 83880; 84100; 84145; 84443; 84484; 85025; 85610; 85730; 87086; 93005; 93306; 93458; 94660; 94760; 96361; 96365; 96368; 96375; 99285

== ENCOUNTER 2022-11-25 13:56 | Inpatient (IN) | payer MEDICAID ==
[2022-11-25] MEDS ORDERED: ACETAMINOPHEN SUPPOSITORY 650 MG SUPP RECTAL PRN (14:13)
[2022-11-25] MEDS ORDERED: MORPHINE SULFATE 2 MG/ML SYRINGE IV PRN (14:13)
[2022-11-25] MEDS ORDERED: GLYCOPYRROLATE 0.2 MG/ML 2 ML VIAL IVP PRN (14:13)
[2022-11-25] MEDS ORDERED: LORazepam 2 MG/ML INJ IV PRN (14:13)
[2022-11-25] MEDS ORDERED: MORPHINE SULFATE (100 MG/2 ML) 100 MG in SODIUM CHLORIDE 0.9% 100 ML IV SCH (14:15)
[2022-11-25] MEDS ORDERED: SCOPOLAMINE 1 MG/72 HR PATCH TRANSDERM SCH (14:15)
[2022-11-25] MEDS ORDERED: FUROSEMIDE 100 MG in SODIUM CHLORIDE 0.9% 90 ML IV SCH (14:30)
[2022-11-25 18:21] VITALS: PULSE 80; RESP 18
== END 2022-11-25 21:49 | disposition expired | DRG 951 ==
LOC: 3SCARD 14:36
PROVIDERS: ADMIT Family Medicine; ATTEND Family Medicine
DX: Z51.5 Encounter for palliative care (principal); G93.41 Metabolic encephalopathy; I21.4 Non-ST elevation (NSTEMI) myocardial infarction; I48.92 Unspecified atrial flutter; N17.9 Acute kidney failure, unspecified; I48.0 Paroxysmal atrial fibrillation; E87.6 Hypokalemia; G43.909 Migraine, unspecified, not intractable, without status migrainosus; M19.90 Unspecified osteoarthritis, unspecified site; I83.90 Asymptomatic varicose veins of unspecified lower extremity; K21.9 Gastro-esophageal reflux disease without esophagitis; Z88.0 Allergy status to penicillin; Z88.8 Allergy status to other drugs, medicaments and biological substances; Z91.048 Other nonmedicinal substance allergy status; Z79.01 Long term (current) use of anticoagulants; Z90.710 Acquired absence of both cervix and uterus; Z87.19 Personal history of other diseases of the digestive system; Z98.42 Cataract extraction status, left eye; Z98.41 Cataract extraction status, right eye; Z96.651 Presence of right artificial knee joint; Z96.641 Presence of right artificial hip joint; Z87.891 Personal history of nicotine dependence